=== PATIENT | male | born 1950 | race Caucasian/White ===

== ENCOUNTER 2018-12-06 00:47 | Inpatient (IN) ==
[2018-12-06] MEDS ORDERED: QUETIAPINE FUMARATE 100 MG TABLET PO STA (00:53)
[2018-12-06] MEDS ORDERED: HALOPERIDOL 10 MG TABLET PO STA (00:53)
[2018-12-06] MEDS ORDERED: LORazepam 1 MG TAB SL STA (00:53)
[2018-12-06] MEDS ORDERED: ATENOLOL 50 MG TABLET PO ONE (00:53)
[2018-12-06 01:28] LABS: Basophils # (auto) 0.01 K/uL (0-0.2); Basophils % (auto) 0.1 %; Eosinophils # (auto) 0.04 K/uL (0-0.5); Eosinophils % (auto) 0.4 %; Hematocrit (blood only) 43.5 % (42-52); Hemoglobin 16.3 g/dL (14.0-18.0); Immature Granulocytes # (auto) 0.02 K/uL (0.00-0.02); Immature Granulocytes % (auto) 0.2 %; Lymphocytes # (auto) 2.19 K/uL (1.2-3.4); Lymphocytes % (auto) 21.3 %; Mean Corpuscular Hgb Conc 37.5 g/dL (32-36); Mean Corpuscular Volume 86.8 fL (80-100); Mean Platelet Volume 10.1 fL (7.4-10.4); Monocytes # (auto) 1.11 K/uL (0.11-0.59); Monocytes % (auto) 10.8 %; Neutrophils # (auto) 6.91 K/uL (1.4-6.5); Neutrophils % (auto) 67.2 %; Platelet Count 230 K/uL (130-400); RDW Coefficient of Variation 12.3 % (11.5-14.5); RDW Standard Deviation 39.2 fL (36.4-46.3); Red Blood Count 5.01 M/uL (4.7-6.1); White Blood Count 10.28 K/uL (4.8-10.8)
[2018-12-06 01:46] LABS: Albumin Level 3.8 gm/dl (3.4-5.0); BUN Creatinine Ratio 15.3 (10-20); Calcium 8.4 mg/dl (8.5-10.1); Creatinine Clr Calc Pharmacy 89.4 ml/min; Est GFR (African American) 112.5; Est GFR (Non-African American) 97.1; Potassium 2.9 mmol/L (3.5-5.1)
[2018-12-06] MEDS ORDERED: ONDANSETRON 4 MG OD TAB PO STA (01:46)
[2018-12-06] MEDS ORDERED: POTASSIUM CHLORIDE 20 MEQ TABCR PO STA (01:47)
[2018-12-06] MEDS ORDERED: METOCLOPRAMIDE HCL 10 MG TABLET PO STA (01:47)
[2018-12-06 01:57] LABS: Albumin Globulin Ratio 1.1 (0.9-2); Bilirubin,Total 0.7 mg/dl (0.2-1); Globulin 3.6 gm/dl (2.5-4.0); Total Protein 7.4 gm/dl (6.4-8.2)
[2018-12-06 02:06] LABS: Acetaminophen < 2 ug/ml (10-30); Salicylate 4.1 mg/dl (2.8-20)
[2018-12-06] MEDS ORDERED: SODIUM CHLORIDE 0.9% 1000ML 1,000 ML IV ONE ×2 (02:17→02:27)
[2018-12-06 02:26] LABS: Appearance Urine Clear (Clear); Bacteria Urine Automated Negative (Negative); Bilirubin Urine Negative (Negative); Blood Urine Negative (Negative); Cast Urine Automated 0 /lpf (0-5); Color Urine Yellow; Epithelial Cell Urine Auto 0-5 /lpf (0-5); Glucose Urine UA Negative (Negative); Ketones Urine 1+ (Negative); Leukocyte Esterase Urine Negative (Negative); Nitrite Urine Negative (Negative); Specific Gravity Urine 1.014 (1.000-1.030); Urobilinogen Urine Negative (Negative); WBC Urine Automated 0 /hpf (0-5); pH Urine 7.5 (4.5-7.5)
[2018-12-06] MEDS ORDERED: MAGNESIUM SULFATE / D5W 1 GM/100 ML BAG IV ONE (02:27)
[2018-12-06 02:33] LABS: Protein Urine Negative (Negative)
[2018-12-06 02:34] LABS: Magnesium 1.8 mg/dl (1.8-2.4)
[2018-12-06] MEDS: POTASSIUM CHLORIDE / WTR 10 MEQ/100 ML PLCT IV SCH ×2 (02:41→03:57)
[2018-12-06 02:51] LABS: Amphetamines+Metham, Urine Neg (Neg); Barbiturates, Urine Neg (Neg); Benzodiazepine, Urine Neg (Neg); Cocaine, Urine Neg (Neg); MDMA (Ecstacy), Urine Neg (Neg); Methadone, Urine Neg (Neg); Opiate, Urine Neg (Neg); Phencyclidine, Urine Neg (Neg)
[2018-12-06] MEDS ORDERED: POTASSIUM CHLORIDE 20 MEQ/15 ML UDC PO STA (04:41)
[2018-12-06 05:48] LABS: BUN Creatinine Ratio 12.8 (10-20); Calcium 7.7 mg/dl (8.5-10.1); Creatinine Clr Calc Pharmacy 83.5 ml/min; Est GFR (African American) 109.4; Est GFR (Non-African American) 94.4; Potassium 3.6 mmol/L (3.5-5.1)
[2018-12-06] MEDS ORDERED: ACETAMINOPHEN 325 MG TAB PO PRN (06:07)
[2018-12-06] MEDS ORDERED: ONDANSETRON INJ 2 MG/ML 2 ML VIAL IV PRN (06:07)
[2018-12-06] MEDS ORDERED: NITROGLYCERIN SL 0.4 MG/TAB TAB SL PRN (06:07)
[2018-12-06] MEDS ORDERED: ALBUTEROL 0.083% NEBU SOLN 3 ML VIAL INH PRN (06:07)
[2018-12-06] MEDS: D5W AND NSS 1,000 ML IV SCH ×3 (06:36→22:43)
--- NOTE | 2018-12-06 06:36 | XRay Report ---
XR chest 1V portable HISTORY: 67 years-old Male Pt AMS acutely altered mental status COMPARISON: Chest and rib radiographs 10/31/2015 TECHNIQUE: Portable AP view of the chest FINDINGS: Cardiomediastinal and hilar silhouettes are within normal limits. The patient is slightly rotated. No pneumothorax, pleural effusion, focal airspace consolidation or overt pulmonary edema. Degenerative changes of the shoulders and spine. IMPRESSION: No acute process. The above report was generated using voice recognition software. It may contain grammatical, syntax o r spelling errors. Electronically signed by: Yandel Amaya M.D. 12/06/2018 6:35 AM
--- NOTE | 2018-12-06 07:00 | Emergency Department Note ---
Entered by Cyrus Pennington acting as a scribe for History of Present Illness General Chief complaint: Mental Health Evaluation Stated complaint: mental health Time Seen by Provider: 12/06/18 00:53 Source: patient and EMS History of Present Illness Onset (ago): day(s) (today) Location: head Pain Consistency: + other (an episode) Quality: + other (suicidal statements) Associated symptoms: + other (Negative for suicidal and homicidal ideations. ) The patient is a 68 year old male who presents to the emergency department with complaints of an episode of suicidal statements occurring today. Per EMS, the patients called 911 today because the patient stated that he would some way or another today. The patient states that his would like him committed. He notes that someone has been telepathically putting thoughts into his brain. He reports that he believes that someone is going to harm him and his . He denies any suicidal and homicidal ideations. The patient states that he has a history of anxiety and paranoid schizophrenia. The patient denies any alcohol use today. Home Medications Home Medications Medication Instructions Recorded Confirmed Type albuterol sulfate 2.5 mg INHALATION Q4 PRN 12/06/18 12/06/18 History carvedilol 12.5 mg PO BID 12/06/18 12/06/18 History hydralazine 50 mg PO BID 12/06/18 12/06/18 History lisinopril 40 mg PO DAILY 12/06/18 12/06/18 History loxapine succinate 10 mg PO QAM 12/06/18 12/06/18 History loxapine succinate 20 mg PO QPM 12/06/18 12/06/18 History metformin 500 mg PO HS 12/06/18 12/06/18 History quetiapine 100 mg PO BID 12/06/18 12/06/18 History triamterene-hydrochlorothiazid 1 cap PO DAILY 12/06/18 12/06/18 History Allergies Allergy/AdvReac Type Severity Reaction Status Date / Time Sulfa (Sulfonamide Allergy Intermediate SWELLING, Verified 12/06/18 01:30 Antibiotics) REDNESS Past Med/Surg History Family History Other No significant family history Social History Preferred Language: Cambodian Communication Ability: Effective Supervisor Claims Required: No Beliefs That Will Affect Care: None marital status: Life Partner Current Living Situation: Spouse Other Information That Helps Us Care for You: No Feels Safe at Home: Yes Safety Concerns: Feels Safe At This Time Smoking Status: Current every day smoker Tobacco Type: cigarettes ; Do You Dip or Chew Tobacco: No ; Hx Alcohol Use: Yes Alcohol type: beer Hx Substance Use: Yes substance use type: marijuana Review of Systems See HPI for pertinent positives & negatives. and A total of 10 systems reviewed and were otherwise negative Physical Exam Vital Signs Vital Signs - 24 hr 12/06/18 01:00 12/06/18 02:27 12/06/18 02:43 Temperature 36.6 C Temperature Source Oral Sepsis Action Taken by Nursing No Action Required Pulse Rate 78 75 72 Pulse Rate from SpO2 Sensor 76 72 Respiratory Rate 26 H 16 27 H Respiratory Depth Shallow Blood Pressure 185/123 H 164/114 H Blood Pressure Mean 143 130 Pulse Oximetry 96 98 96 Oxygen Delivery Method Room Air 12/06/18 03:10 12/06/18 03:13 12/06/18 03:30 Temperature Temperature Source Sepsis Action Taken by Nursing Pulse Rate 77 73 71 Pulse Rate from SpO2 Sensor 73 72 Respiratory Rate 31 H 18 24 Respiratory Depth Blood Pressure 180/103 H 139/89 Blood Pressure Mean 128 105 Pulse Oximetry 94 90 Oxygen Delivery Method 12/06/18 04:00 12/06/18 04:05 12/06/18 04:30 Temperature Temperature Source Sepsis Action Taken by Nursing Pulse Rate 74 71 77 Pulse Rate from SpO2 Sensor 71 Respiratory Rate 15 23 27 H Respiratory Depth Blood Pressure 175/107 H 182/99 H Blood Pressure Mean 129 126 Pulse Oximetry 95 Oxygen Delivery Method GENERAL: Awake, alert, well-appearing, in no acute distress HENT: Normocephalic, atraumatic. Oropharynx unremarkable. EYES: Normal conjunctiva. Sclera non-icteric. NECK: Supple. No nuchal rigidity. FROM. No JVD. RESPIRATORY: Clear to auscultation. CARDIAC: Regular rate, normal rhythm. Extremities warm and well perfused. Pulses equal. ABDOMEN: Soft, non-distended. No tenderness to palpation. No rebound or guarding. No masses. RECTAL: Deferred. MUSCULOSKELETAL: Chest examination reveals no tenderness. The back is symmetrical on inspection without obvious abnormality. There is no CVA tenderness to palpation. No joint edema. LOWER EXTREMITIES: Calves are equal size bilaterally and non-tender. No edema. No discoloration. NEURO: Normal sensorium. No sensory or motor deficits noted. SKIN: No rash or jaundice noted. PSYCH: Flight of ideas, tangential thought process, paranoid in thinking, does not trust doctor, police, ambulance that brought him in, and scribe. Course 0048: The patient was evaluated in room B12. A complete history and physical exam was performed. Administered Medications Dextrose/Sodium Chloride (D5w And Nss) 1,000 mls @ 100 mls/hr IV .Q10H NATALYA Stop: 01/05/19 06:14 Last Admin: 12/06/18 06:36 Dose: 100 mls/hr Documented by: [id number] Discontinued Medications Atenolol (Tenormin) 100 mg PO NOW ONE Stop: 12/06/18 00:54 Last Admin: 12/06/18 01:09 Dose: 100 mg Documented by: [id number] Haloperidol (Haldol) 10 mg PO NOW STA Stop: 12/06/18 00:54 Last Admin: 12/06/18 01:12 Dose: 10 mg Documented by: [id number] Hydralazine HCl (Apresoline) 25 mg PO NOW STA Stop: 12/06/18 00:57 Last Admin: 12/06/18 01:08 Dose: 25 mg Documented by: [id number] Sodium Chloride (Nss 1000ml) 1,000 mls @ 999 mls/hr IV .Q1H1M ONE Stop: 12/06/18 03:17 Last Infusion: 12/06/18 05:12 Dose: 0 mls/hr Documented by: [id number] Admin: 12/06/18 03:56 Dose: 999 mls/hr Documented by: [id number] Magnesium Sulfate/Dextrose (Magnesium Sulfate / D5w) 1 gm in 100 mls @ 100 mls/hr IV ONE ONE Stop: 12/06/18 03:26 Last Infusion: 12/06/18 03:57 Dose: 0 mls/hr Documented by: [id number] Admin: 12/06/18 02:41 Dose: 100 mls/hr Documented by: [id number] Potassium Chloride (K Mendel / Wtr) 10 meq in 100 mls @ 100 mls/hr IV Q1H NATALYA Stop: 12/06/18 04:29 Last Infusion: 12/06/18 05:12 Dose: 0 mls/hr Documented by: [id number] Admin: 12/06/18 03:57 Dose: 100 mls/hr Documented by: [id number] Infusion: 12/06/18 03:41 Dose: 100 mls/hr Documented by: [id number] Admin: 12/06/18 02:41 Dose: 100 mls/hr Documented by: [id number] Sodium Chloride (Nss 1000ml) 1,000 mls @ 999 mls/hr IV .Q1H1M ONE Stop: 12/06/18 03:27 Last Infusion: 12/06/18 03:57 Dose: 0 mls/hr Documented by: [id number] Admin: 12/06/18 02:42 Dose: 999 mls/hr Documented by: [id number] Lorazepam (Ativan) 2 mg SL NOW STA Stop: 12/06/18 00:54 Last Admin: 12/06/18 01:09 Dose: 2 mg Documented by: [id number] Metoclopramide HCl (Reglan) 10 mg PO NOW STA Stop: 12/06/18 01:48 Last Admin: 12/06/18 02:29 Dose: Not Given Documented by: [id number] Ondansetron HCl (Zofran Odt) 4 mg PO NOW STA Stop: 12/06/18 01:47 Last Admin: 12/06/18 02:29 Dose: Not Given Documented by: [id number] Potassium Chloride (Klor-Con M20) 40 meq PO NOW STA Stop: 12/06/18 01:48 Last Admin: 12/06/18 02:29 Dose: Not Given Documented by: [id number] Potassium Chloride (Remedios Ciel Elix) 40 meq PO NOW STA Stop: 12/06/18 04:42 Last Admin: 12/06/18 04:47 Dose: 40 meq Documented by: [id number] Quetiapine Fumarate (Seroquel) 100 mg PO NOW STA Stop: 12/06/18 00:54 Last Admin: 12/06/18 01:11 Dose: 100 mg Documented by: [id number] Medical Decision Making Differential Diagnosis Differential diagnosis: Etiologies such as psychiatric disorder, infection, hypoglycemia, electrolyte abnormalities, cardiac sources, intracerebral event, toxicological process, neurologic disorder, as well as others were entertained. Medical Records Attestation: I reviewed the patient's medical records. Home Medications Current Medication List: was personally reviewed by me Laboratory Data Attestation: I reviewed the patient's lab results. Result diagrams: 12/06/18 01:18 12/06/18 05:18 Lab Results 12/06/18 12/06/18 12/06/18 Range/Units 01:18 01:18 01:18 WBC 10.28 (4.8-10.8) K/uL RBC 5.01 (4.7-6.1) M/uL Hgb 16.3 (14.0-18.0) g/dL Hct 43.5 (42-52) % MCV 86.8 (80-100) fL MCH 32.5 (25-34) pg MCHC 37.5 H (32-36) g/dL RDW Std Deviation 39.2 (36.4-46.3) fL RDW Coeff of Jerome 12.3 (11.5-14.5) % Plt Count 230 (130-400) K/uL MPV 10.1 (7.4-10.4) fL Immature Gran % (Auto) 0.2 % Neut % (Auto) 67.2 % Lymph % (Auto) 21.3 % [place] % (Auto) 10.8 % Eos % (Auto) 0.4 % Baso % (Auto) 0.1 % Immature Gran # (Auto) 0.02 (0.00-0.02) K/uL Neut # (Auto) 6.91 H (1.4-6.5) K/uL Lymph # (Auto) 2.19 (1.2-3.4) K/uL [place] # (Auto) 1.11 H (0.11-0.59) K/uL Eos # (Auto) 0.04 (0-0.5) K/uL Baso # (Auto) 0.01 (0-0.2) K/uL Sodium 121 L (136-145) mmol/L Potassium 2.9 L (3.5-5.1) mmol/L Chloride 82 L (98-107) mmol/L Carbon Dioxide 29 (21-32) mmol/L Anion Gap 10.0 (3-11) BUN 11 (7-18) mg/dl Creatinine 0.71 (0.6-1.4) mg/dl Est Cr Clr Drug Dosing 89.4 ml/min Est GFR ( Amer) 112.5 Est GFR (Non-Af Amer) 97.1 BUN/Creatinine Ratio 15.3 (10-20) Glucose 136 H (70-99) mg/dl Calcium 8.4 L (8.5-10.1) mg/dl Magnesium 1.8 (1.8-2.4) mg/dl Total Bilirubin 0.7 (0.2-1) mg/dl AST 18 (15-37) U/L ALT 16 (12-78) U/L Alkaline Phosphatase 49 (45-117) U/L Total Protein 7.4 (6.4-8.2) gm/dl Albumin 3.8 (3.4-5.0) gm/dl Globulin 3.6 (2.5-4.0) gm/dl Albumin/Globulin Ratio 1.1 (0.9-2) TSH 0.570 (0.300-4.500) uIu/ml Urine Color Urine Appearance (Clear) Urine pH (4.5-7.5) Ur Specific Magnolia (1.000-1.030) Urine Protein (Negative) Urine Glucose (UA) (Negative) Urine Ketones (Negative) Urine Blood (Negative) Urine Nitrite (Negative) Urine Bilirubin (Negative) Urine Urobilinogen (Negative) Ur Leukocyte Esterase (Negative) Urine WBC (Auto) (0-5) /hpf Urine RBC (Auto) (0-4) /hpf U Hyaline Cast (Auto) (0-5) /lpf U Epithel Cells (Auto) (0-5) /lpf Urine Bacteria (Auto) (Negative) Salicylates 4.1 (2.8-20) mg/dl Urine Opiates Screen (Neg) Ur Methadone, Qual (Neg) Acetaminophen < 2 L (10-30) ug/ml Urine Barbiturates (Neg) Ur Phencyclidine (PCP) (Neg) U Amphetamin/Meth Scrn (Neg) MDMA (Ecstasy) Screen (Neg) U Benzodiazepines Scrn (Neg) Ur Cocaine Metabolite (Neg) U Marijuana (THC) Screen (Neg) Ethyl Alcohol mg/dL (0-3) mg/dl 12/06/18 12/06/18 12/06/18 Range/Units 01:18 02:16 02:16 WBC (4.8-10.8) K/uL RBC (4.7-6.1) M/uL Hgb (14.0-18.0) g/dL Hct (42-52) % MCV (80-100) fL MCH (25-34) pg MCHC (32-36) g/dL RDW Std Deviation (36.4-46.3) fL RDW Coeff of Jerome (11.5-14.5) % Plt Count (130-400) K/uL MPV (7.4-10.4) fL Immature Gran % (Auto) % Neut % (Auto) % Lymph % (Auto) % [place] % (Auto) % Eos % (Auto) % Baso % (Auto) % Immature Gran # (Auto) (0.00-0.02) K/uL Neut # (Auto) (1.4-6.5) K/uL Lymph # (Auto) (1.2-3.4) K/uL [place] # (Auto) (0.11-0.59) K/uL Eos # (Auto) (0-0.5) K/uL Baso # (Auto) (0-0.2) K/uL Sodium (136-145) mmol/L Potassium (3.5-5.1) mmol/L Chloride (98-107) mmol/L Carbon Dioxide (21-32) mmol/L Anion Gap (3-11) BUN (7-18) mg/dl Creatinine (0.6-1.4) mg/dl Est Cr Clr Drug Dosing ml/min Est GFR ( Amer) Est GFR (Non-Af Amer) BUN/Creatinine Ratio (10-20) Glucose (70-99) mg/dl Calcium (8.5-10.1) mg/dl Magnesium (1.8-2.4) mg/dl Total Bilirubin (0.2-1) mg/dl AST (15-37) U/L ALT (12-78) U/L Alkaline Phosphatase (45-117) U/L Total Protein (6.4-8.2) gm/dl Albumin (3.4-5.0) gm/dl Globulin (2.5-4.0) gm/dl Albumin/Globulin Ratio (0.9-2) TSH (0.300-4.500) uIu/ml Urine Color Yellow Urine Appearance Clear (Clear) Urine pH 7.5 (4.5-7.5) Ur Specific Magnolia 1.014 (1.000-1.030) Urine Protein Negative (Negative) Urine Glucose (UA) Negative (Negative) Urine Ketones 1+ H (Negative) Urine Blood Negative (Negative) Urine Nitrite Negative (Negative) Urine Bilirubin Negative (Negative) Urine Urobilinogen Negative (Negative) Ur Leukocyte Esterase Negative (Negative) Urine WBC (Auto) 0 (0-5) /hpf Urine RBC (Auto) 5-10 H (0-4) /hpf U Hyaline Cast (Auto) 0 (0-5) /lpf U Epithel Cells (Auto) 0-5 (0-5) /lpf Urine Bacteria (Auto) Negative (Negative) Salicylates (2.8-20) mg/dl Urine Opiates Screen Neg (Neg) Ur Methadone, Qual Neg (Neg) Acetaminophen (10-30) ug/ml Urine Barbiturates Neg (Neg) Ur Phencyclidine (PCP) Neg (Neg) U Amphetamin/Meth Scrn Neg (Neg) MDMA (Ecstasy) Screen Neg (Neg) U Benzodiazepines Scrn Neg (Neg) Ur Cocaine Metabolite Neg (Neg) U Marijuana (THC) Screen Pos H (Neg) Ethyl Alcohol mg/dL < 3.0 (0-3) mg/dl Imaging Data Attestation: I personally reviewed and interpreted this imaging study as follows: My Impression: One view of the chest was determined by me shows no evidence of pneumonia congestion or pneumothorax Radiologist's Impression: CT the head: Motion artifact. No evidence of acute intracranial abnormality or skull fracture. Volume loss and small vessel disease. 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 Blood Pressure Blood Pressure Findings: Elevated blood pressure Blood Pressure Disposition: further management by hospitalist ALEX Narrative This is a 67-year-old male who was brought to the emergency department by state police as well as EMS over concerns that the patient had begun threatening his . He has been watching her and has access to firearms. The patient arrives here under 302 warrant. Upon arrival to the emergency department the patient appears acutely paranoid and is suspicious of myself as well as nurses and telehealth case manager. Because of this the patient was given 10 mg of Haldol as well as 2 mg of Ativan. He was given his blood pressure medications for the evening. Patient's sodium levels found to be low and his potassium level was also low. This was repleted here in the emergency department. He was given a normal saline bolus. Because of all these findings I did discuss the case with the hospitalist service as well as telehealth case manager and psychiatric telehealth case manager. It was felt that the patient will be better served in the hospitalist with the psychiatric consult. Impression & Plan Altered mental status, Hypertension, Hyponatremia, Acute hypokalemia Discharge Plan Visit Data *Final* Discharge Date/Time: 12/06/18 05:56 Chief Complaint: Mental Health Evaluation Stated Complaint: mental health ED Provider: Michael Garcia Discharge Problem: Altered mental status, Hypertension, Hyponatremia, Acute hypokalemia Patient Disposition: Admitted As Inpatient Discharge Instructions Interventions: ED Discharge Assessment Last Done: 12/06/18 05:56 Discharge Problem: Altered mental status Qualifiers: Altered mental status type: unspecified Qualified Code(s): R41.82 - Altered mental status, unspecified Hypertension Qualifiers: Hypertension type: unspecified Qualified Code(s): I10 - Essential (primary) hypertension The scribe's documentation has been prepared under my direction and personally reviewed by me in its entirety. I confirm that the note above accurately reflects all work, treatment, procedures, and medical decision making performed by me.
[2018-12-06 07:04] LABS: Prothrombin Time 10.2 Seconds (9.0-12.0)
--- NOTE | 2018-12-06 07:11 | CT Scan Report ---
CT OF THE HEAD WITHOUT CONTRAST CLINICAL HISTORY: Altered mental status. COMPARISON STUDY: No previous studies for comparison. CT DOSE: 921.40 mGy.cm TECHNIQUE: Helical axial images of the head were obtained without IV contrast. Automated exposure con trol was utilized for the study. A dose lowering technique was utilized adhering to the principles o f ALARA. FINDINGS: This exam is mildly compromised by motion artifact. No acute intracranial hemorrhage, midli ne shift or mass effect is present. Ventricular system is normal. The basilar cisterns are patent. 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 White matter hypodensity suggests small v essel disease. There are no findings to suggest acute dural sinus thrombosis or acute territorial inf arct. There is trace fluid within left mastoid air cells. There are no significant calvarial abnormal ities. There is moderate intracranial vascular calcification. IMPRESSION: 1. No acute intracranial findings. 2. Exam mildly compromised by motion artifact. 3. 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 Electronically signed by: Franky Meier M.D. 12/06/2018 7:10 AM
[2018-12-06] MEDS ORDERED: HydrALAZINE HCL 20 MG/ML VIAL IV STA (07:39)
[2018-12-06] MEDS ORDERED: HydrALAZINE HCL 20 MG/ML VIAL IV PRN (07:44)
[2018-12-06] MEDS ORDERED: GLUCAGON FOR INJ 1 MG VIAL IM PRN (08:00)
[2018-12-06] MEDS ORDERED: GLUCOSE 10 TABS/TUBE PO PRN (08:00)
[2018-12-06] MEDS ORDERED: DEXTROSE 50% 50 ML SYRINGE IV PRN (08:00)
[2018-12-06] MEDS ORDERED: GLUCOSE 40% GEL 15 GM TUBE PO PRN (08:00)
[2018-12-06] MEDS ORDERED: CARBOHYDRATES FOR HYPOGLYCEMIA PO PRN (08:00)
[2018-12-06] MEDS: INSULIN ASPART 100 UNITS/ML 3 ML PEN SC SCH ×4 (08:03→21:43)
[2018-12-06] MEDS: NICOTINE 21 MG/24 HR TDSY TD SCH (08:05)
[2018-12-06] MEDS: HydrALAZINE TAB 50 MG TAB PO SCH ×2 (08:08→21:46)
[2018-12-06] MEDS: HEPARIN SOD 5,000 UNIT/0.5 ML VIAL SQ SCH ×3 (08:08→21:44)
[2018-12-06] MEDS: LISINOPRIL 40 MG TAB PO SCH (08:09)
[2018-12-06] MEDS: CARVEDILOL 25 MG TAB PO SCH ×2 (08:09→21:46)
[2018-12-06] MEDS: QUETIAPINE FUMARATE 100 MG TABLET PO SCH ×2 (08:09→21:46)
[2018-12-06 08:12] LABS: BUN Creatinine Ratio 12.5 (10-20); Calcium 8.4 mg/dl (8.5-10.1); Creatinine Clr Calc Pharmacy 81.4 ml/min; Est GFR (African American) 108.3; Est GFR (Non-African American) 93.4; Potassium 3.5 mmol/L (3.5-5.1)
--- NOTE | 2018-12-06 08:33 | History and Physical Report ---
DATE OF ADMISSION: 12/06/2018 CHIEF COMPLAINT: Paranoid schizophrenia, hyponatremia. HISTORY OF PRESENT ILLNESS: This is a 67-year-old male with past medical history significant for paranoid schizophrenia, hypertension, tobacco abuse, hyperlipidemia, psoriasis, type 2 diabetes, presents with paranoid schizophrenia flare. The patient lives with his ,there is question of him collecting guns and he was threatening his and he also had some grandiose plans and he was also telling that he was going to have surgery and is going to . EMS was called and the patient was brought in here and the patient was somewhat agitated and he was given p.o. Haldol and sublingual Ativan and Reglan, currently somewhat sedated, but able to answer some questions. The patient denies any headache. Denies any chest pain. Denies shortness of breath, has cough. He says he smokes 1 pack of cigarettes daily. He says he ambulates okay. Denies any shortness of breath. Denies nausea, denies abdominal pain. He is going to bathroom fine. He says he ambulates okay. He does not know why he was brought to the hospital, can tell his name, , and knows that he is in the hospital and can tell the month and year. Hemodynamics are stable, could not get much history from him as the patient is currently sedated. ALLERGIES: SULFA ANTIBIOTICS. PAST MEDICAL HISTORY: As mentioned above. PAST SURGICAL HISTORY: Colonoscopy, wisdom tooth removed. MEDICATIONS: The patient is on Maxzide 37.5/25 mg p.o. daily, hydralazine 50 mg p.o. b.i.d., lisinopril 40 mg p.o. daily, metformin 500 mg p.o. at bedtime, Seroquel 100 mg p.o. b.i.d., Coreg 12.5 mg p.o. b.i.d., loxapine 10 mg in the morning and 20 mg in the evening, albuterol inhalation q. 4 hours p.r.n. FAMILY HISTORY: Significant for: Aunt has diabetes. Mother has diabetes. Uncle and brother have diabetes. SOCIAL HISTORY: , lives with his . Smokes an average of 2 packs a day for 48 years. Alcohol rare. Drugs, marijuana. REVIEW OF SYMPTOMS: As per HPI. Rest of review of systems could not obtain at this time. PHYSICAL EXAMINATION: GENERAL: The patient is somewhat drowsy, but alert and oriented. VITAL SIGNS: Temperature 36.6, pulse 71, respiratory rate 27, blood pressure 175/107, oxygen 94% room air. NECK: No JVD, no neck masses, no carotid bruits. CARDIOVASCULAR: S1, S2 heard, regular rate and rhythm, no murmur, no gallop. RESPIRATORY SYSTEM: Normal AP diameter. No accessory muscle use. No wheezing, no crackles. ABDOMEN: Soft, bowel sounds present, nontender. No distention. CENTRAL NERVOUS SYSTEM: Drowsy, but arousable, oriented x3. MUSCULOSKELETAL: Moves extremities, ambulatory in the ER room. EXTREMITIES: No edema, no erythema. LABORATORY DATA: WBC 10.2, hemoglobin 16.3, hematocrit 43.5, platelets 230. Sodium 121, potassium 2.9, chloride 82, bicarbonate 29, BUN 11, creatinine 0.7, serum glucose 136, calcium 8.4, magnesium 1.8, total bilirubin 0.7, AST 18, ALT 16, alkaline phosphatase 49. TSH 0.5. Urinalysis, positive for ketones. Toxicology screen positive for marijuana. Chest x-ray: No acute findings seen. CT of the head, official reading pending. ASSESSMENT AND PLAN: This is a 67-year-old male with history of paranoid schizophrenia, was threatening his at home and got somewhat agitated and brought to the hospital. 1. Paranoid schizophrenia flare, somewhat agitated. He is on loxapine and Seroquel at home, received Haldol p.o. and sublingual Ativan, currently drowsy. We will admit to med/surg tele, one-on-one observation. Consult psychiatry for a adjustment of medications. 2. Hyponatremia. Sodium of 121, received 2 liters of fluids in the ER. We will also check urine osmolality, serum osmolality and urine sodium. Check BMP q. 4 hours and consult nephrology for further recommendations. We will hold triamterene/hydrochlorothiazide and follow the labs closely for slow correction of sodium. 4. Hypokalemia. We will replace and follow the labs. 5. Tobacco use disorder. Continue inhalers p.r.n. and nicotine patch. 6. Hypertension. Continue hydralazine, lisinopril and, Coreg. Holding triamterene/hydrochlorothiazide. We will monitor the blood pressure.Iv hydralazine prn. 7. Diabetes. Holding metformin, place insulin sliding scale. 8. Deep venous thrombosis prophylaxis, sequential compression devices for now. 9. Disposition: Close monitor in the med/surg tele. Level 1 full code. PT and OT prior to discharge. Social Service to help with discharge planning. VER[place]
[2018-12-06] MEDS: DESMOPRESSIN ACETATE 2 MCG in SODIUM CHLORIDE 0.9% 50 ML IV SCH ×2 (09:25→17:47)
[2018-12-06] MEDS: AMLODIPINE BESYLATE 5 MG TAB PO SCH (09:25)
[2018-12-06 10:00] LABS: BUN Creatinine Ratio 13.8 (10-20); Calcium 8.1 mg/dl (8.5-10.1); Est GFR (African American) 113.9; Est GFR (Non-African American) 98.2; Potassium 2.9 mmol/L (3.5-5.1)
--- NOTE | 2018-12-06 10:52 | Psychiatric Consultation ---
Date of Consultation December 06, 2018 Impression / Recommendations Impression 67-year-old male admitted medically on 12/06/2018 on a 302 warrant with petitioning statement completed by his . had reportedly called 911 due to concerns for increasing paranoid and delusional behavior. Patient has a history of schizophrenia and has reportedly not been doing well for the past 2 months. Patient received haloperidol 10 mg and lorazepam 2 mg while in the emergency department due to being "combative and noncompliant." Due to his level of sedation, the patient is unable to participate in a full psychiatric evaluation at this time. Limited information obtainable from patient suggests that he is aware that he has not been in a proper mindset for some time. After conversation between psychiatric nurse liaison and the patient's , it is determined that the will be able to bring in nonformulary loxapine in order for patient to continue his home medication regimen. Until level of sedation improves, would not recommend any immediate changes to patient's home medication regimen. Would suggest continuing loxapine at 10 mg every morning and 20 mg nightly. Continue quetiapine 100 mg twice daily. No changes recommended at this time until additional information can acquired. It is suggested, however, the patient may have been on doses of quetiapine as high as 500 mg daily and doses of loxapine as high as 100 mg daily. Due to patient's 302 warrant, he should not be permitted to leave the hospital AMA until a full psychiatric evaluation is completed and medication and discharge recommendations are made. We will follow up when patient is better able to participate in a meaningful interview. Appreciate the opportunity to participate in the care of this patient, please reach out to our service with any concerns during his medical admission. Dr. Ulisses Martínez was directly involved in review and discussion of the patient's case and participated in medical decision making regarding treatment recommendations. Risk Factors Assessment Do You Have Access To A Gun?: Yes (reported by Can Carla estevez) CPT Code Initial Consultation: 50800 Psych History Identifying Data 67-year-old male admitted medically on 12/06/18 on a 302 warrant due to 's concerns for delusions and paranoia. Patient reportedly has a history of schizophrenia, paranoid type. He had verbalized suicidal statements to his which led to his subsequent evaluation and medical admission. Patient is currently being treated for hyponatremia and hypokalemia in addition to significantly elevated blood pressure. Patient did receive 10 mg of haloperidol and 2 mg of lorazepam while in the emergency department. Psychiatric consultation was requested to evaluate patient due to history of schizophrenia and having been brought in on a 302 warrant. Information is predominantly gathered from hospital documentation, as patient remains sedated and is unable to participate in a meaningful evaluation at this time. Chief Complaint "Yeah, I knew I was getting into the wrong stuff." History of Present Illness Poonam Montenegro is a 67-year-old male admitted medically at room 12/06/2018 after presenting to the emergency department on a 302 warrant for mental health evaluation. Per ED documentation, the patient's had called 911 after the patient had reported he "would some way or another today." The patient had verbalized comments suggesting delusional thought process. He did deny homicidal and suicidal ideation, despite making these comments. Patient was admitted medically due to hyponatremia and hypokalemia and he had episodes of rather significantly elevated blood pressure. Psychiatric consultation is requested to evaluate patient for paranoia and delusions, with a long history of schizophrenia as a diagnosis. Patient is reportedly taking loxapine 10 mg every morning and 20 mg nightly as well as 100 mg of quetiapine twice daily. In the ED, patient was given 10 mg of haloperidol and 2 mg of lorazepam as he was reportedly acutely paranoid and suspicious of healthcare providers. He was reportedly combative and uncooperative. 302 petitioning statement was completed by the patient's (Aurelia Montenegro) which reads: "said he will tonight. Called me a Satan worshipper. Watched me sleep and shower. Told me S.P (?) was my life line. Won't eat. Drinks coffee and smokes cigs all day. Won't put out the trash because he is afraid it will be stolen. I got DVDs in the mail today and he thought it was a bomb. Would not let me accept phone call from library because didn't know who they were." It was reported by can help that the patient does have access to firearms in the home. See nursing note from ED psych case management associate for accounts of statements made prior to admission. Psychiatric nurse liaison was able to gather history from the patient's , who is planning to come visit him this afternoon. As loxapine is nonformulary in our pharmacy, she is willing to bring in his prescription to ensure he continues his home medications. See psychiatric nurse liaison note for full details. In summary, reports the patient has not been sleeping well for over a month, and has been demonstrating paranoia and delusions for the past 2 months. She states he has been harassing drivers passing on the road and has been following her around their home. She states that he has been compliant with his medications, which are currently prescribed by his PCP. Patient had previously been seen by Dr. Alvarez, but followed up with his PCP after Dr. Alvarez's detention about 5-6 years ago. Attempts were made to see patient on multiple occasions today; however, as he was only recently admitted and had received haloperidol and lorazepam in the emergency department, he was largely unable to cooperate with a productive interview. During first encounter, patient was unable to remain awake for a significant period of time and was unable to answer questions. A second visit later in the afternoon showed the patient was somewhat more responsive; however, he did frequently nod off to sleep and ultimately stated he was too tired to participate in evaluation at this time. Patient remains with a one-to-one sitter for the time being. Unable at this time to gather additional psychiatric history from the patient himself. Past Psychiatric History Previous Psych History: Patient receives medications from his PCP; previously followed with Dr. Alvarez until the doctor's detention about 5-6 years ago. Pt denies having a case management associate. Pt has been admitted to [facility] in 1997, 2001, 2004, and 2008. He also had one hospitalization at [facility] in 1977. Pt has a long history of schizophrenia, paranoid-type. Do You Have Access To A Gun?: Yes (reported by Can Carla estevez) Past Medication Trials: Per previous hospital documentation: 1. Risperdal 2. Loxapine 3. Seroquel Allergies Allergy/AdvReac Type Severity Reaction Status Date / Time Sulfa (Sulfonamide Allergy Intermediate SWELLING, Verified 12/06/18 01:30 Antibiotics) REDNESS Home Medications Home Medications Medication Instructions Recorded Confirmed Type albuterol sulfate 2.5 mg INHALATION Q4 PRN 12/06/18 12/06/18 History carvedilol 12.5 mg PO BID 12/06/18 12/06/18 History hydralazine 50 mg PO BID 12/06/18 12/06/18 History lisinopril 40 mg PO DAILY 12/06/18 12/06/18 History loxapine succinate 10 mg PO QAM 12/06/18 12/06/18 History loxapine succinate 20 mg PO QPM 12/06/18 12/06/18 History metformin 500 mg PO HS 12/06/18 12/06/18 History quetiapine 100 mg PO BID 12/06/18 12/06/18 History triamterene-hydrochlorothiazid 1 cap PO DAILY 12/06/18 12/06/18 History Family History Documentation suggests a family history of alcoholism Substance Abuse History Unable to have productive conversation with patient to assess substance abuse history. Personal History Living Arrangements: Home (With ) Patient History Medical History Hypertension (Chronic) Anxiety Paranoid schizophrenia Family History Other No significant family history Social History Preferred Language: Pry[place]in[place] Communication Ability: Effective Tobacco Drummer Required: No Beliefs That Will Affect Care: None marital status: Life Partner Current Living Situation: Spouse Other Information That Helps Us Care for You: No Feels Safe at Home: Yes Safety Concerns: Feels Safe At This Time Smoking Status: Current every day smoker Tobacco Type: cigarettes ; Do You Dip or Chew Tobacco: No ; Hx Alcohol Use: Yes Alcohol type: beer Hx Substance Use: Yes substance use type: marijuana Physical Exam Psychiatric: Orientation: alert (Only briefly, arousable to verbal stimuli but quickly falls back asleep) and oriented to person Apperance: appropriately dressed (In hospital gown), + disheveled and appeared stated age Eye Contact: + poor eye contact (Briefly opens eyes, but falling asleep for majority of enco unter) Motor Behavior: no abnormal motor movements (Observed while laying in bed) Speech: normal rate/rhythm/volume of speech Affect: + blunted affect (Appearing fatigued) Unable to adequately assess due to patient's level of sedation Unable to adequately assess due to level of patient's sedation Patient unable to comment on suicidality Patient unable to comment on presence of auditory or visual hallucinations Cognition: + attention not intact Estimated Intelligence: consistent with education level Insight: + impaired insight Judgement: + impaired judgement Vital Signs (Past 24 Hours): Last Vital Signs Temp 36.9 C 12/06/18 07:09 Pulse 64 12/06/18 09:14 Resp 19 12/06/18 07:09 BP 162/88 H 12/06/18 08:33 Pulse Ox 96 12/06/18 07:09 Review of Systems On both attempts, patient is sedated and unable to dissipate and productive interview. Unable to accurately complete review of systems due to patient's condition. Results & Data Medications Administered Amlodipine Besylate (Norvasc) 10 mg PO QAM NATALYA Stop: 01/05/19 08:59 Last Admin: 12/06/18 09:25 Dose: 10 mg Documented by: [id number] Carvedilol (Coreg) 12.5 mg PO BID NATALYA Stop: 01/05/19 08:59 Last Admin: 12/06/18 08:09 Dose: 12.5 mg Documented by: [id number] Heparin Sodium (Porcine) (Heparin Sodium (Porcine)) 5,000 units SQ Q12 NATALYA Stop: 01/05/19 08:59 Last Admin: 12/06/18 08:14 Dose: Not Given Documented by: [id number] Hydralazine HCl (Apresoline) 50 mg PO BID NATALYA Stop: 01/05/19 08:59 Last Admin: 12/06/18 08:08 Dose: 50 mg Documented by: [id number] Dextrose/Sodium Chloride (D5w And Nss) 1,000 mls @ 150 mls/hr IV .Q6H40M NATALYA Stop: 01/05/19 06:14 Last Infusion: 12/06/18 08:18 Dose: 150 mls/hr Documented by: [id number] Admin: 12/06/18 06:36 Dose: 100 mls/hr Documented by: [id number] Desmopressin Acetate 2 mcg/ (Sodium Chloride) 50.5 mls @ 100 mls/hr IV Q8H NATALYA Stop: 01/05/19 08:59 Last Infusion: 12/06/18 10:21 Dose: 0 mls/hr Documented by: [id number] Admin: 12/06/18 09:25 Dose: 100 mls/hr Documented by: [id number] Insulin Aspart (Novolog Flexpen) 0 units SC ACHS NATALYA Stop: 01/05/19 07:29 Last Admin: 12/06/18 08:03 Dose: Not Given Documented by: [id number] Cosigned by: [id number] Lisinopril (Zestril) 40 mg PO DAILY NATALYA Stop: 01/05/19 08:59 Last Admin: 12/06/18 08:09 Dose: 40 mg Documented by: [id number] Miscellaneous (Order Awaiting Action) 1 ea N/A QS [facility] Stop: 01/05/19 07:59 Last Admin: 12/06/18 07:58 Dose: Not Given Documented by: [id number] Miscellaneous (Order Awaiting Action) 1 ea N/A QS [facility] Stop: 01/05/19 07:59 Last Admin: 12/06/18 07:59 Dose: Not Given Documented by: [id number] Nicotine (Nicoderm Cq) 21 mg TD QAM [facility] Stop: 01/05/19 08:59 Last Admin: 12/06/18 08:05 Dose: 21 mg Documented by: [id number] Quetiapine Fumarate (Seroquel) 100 mg PO BID [facility] Stop: 01/05/19 08:59 Last Admin: 12/06/18 08:09 Dose: 100 mg Documented by: [id number]
[2018-12-06] MEDS: POTASSIUM CHLORIDE 20 MEQ TABCR PO SCH ×3 (11:36→22:45)
[2018-12-06 13:09] LABS: BUN Creatinine Ratio 16.1 (10-20); Creatinine Clr Calc Pharmacy 89.4 ml/min; Est GFR (African American) 112.5; Est GFR (Non-African American) 97.1; Potassium 3.2 mmol/L (3.5-5.1)
--- NOTE | 2018-12-06 15:38 | Hospitalist Progress Note ---
Date of Service December 06, 2018 Assessment & Plan (1) Hyponatremia: Continue desmopressin and D5 at 150. Nephro consulted. Continue trending sodium every 4. (2) Paranoid schizophrenia: Records reviewed with patient brought in on a petition completed by the patient's . The patient reportedly stated he was going to . He reportedly owns a gun but does not admit to this to me. Per his the patient has been making paranoid statements and harassing neighbors and people driving by their home. He was watching her sleep and shower and told her she was a Satan worshipper. His behavior has been paranoid and he continues to drink coffee and smoke cigarettes all day. He wont put out the trash because he is afraid it will be stolen. He was paranoid that something in the mail was a bomb. Defer management to psychiatry. Patient states he does not see a psychiatrist as outpatient but admits he has paranoid schizophrenia. Continue Seroquel and loxapine per home regimen. (3) Suicidal ideation: Has safe trays ordered because of the nature of the admission. No martha SI or HI but patient was convinced he was going to for some reason so this and 1:1 observation is a precaution. (4) DMII (diabetes mellitus, type 2): ISS ordered without carb coverage. A1C reflects good control with metfromin. Cont current treatment plan. (5) Smoker: Nicotine patch, advised to quit. (6) Hypertension: at goal, cont home medications. (7) DVT prophylaxis: Heparin Full Dispo-uncertain, pending psychiatric evaluation and recommendations. Mariam Felipe DO [facility] Hospitalist Subjective 68-year-old man admitted with suicidal ideations and found to have hyponatremia. Sodium has increased to quickly and dextrose was added with addition of desmopressin per nephrology. Continuing to trend the sodium; patient is currently feeling well and mentating normally. He denies suicidal ideations today and states he feels okay. I asked him if he owns a gun and he told me he declines to answer that question. I asked him if he had any weapons and he said he had a knife. I asked him if he had a weapon on his person or in his bags and he replied no. He otherwise denies any symptoms of chest pain, shortness of breath, fevers, chills, vomiting, diarrhea. Review of Systems Review of Systems: All systems reviewed & are unremarkable except as noted in HPI & below Physical Exam Physical Exam: CONSTITUTIONAL: WNWD, vitals as above, generally well- appearing EYES: normal conjunctivae, no scleral icterus ENT: MMM RESPIRATORY: clear to auscultation bilaterally, no crackles, rales or wheezes, normal respiratory effort CARDIOVASCULAR: regular rate and rhythm, S1 and 2 heard without murmurs, gallops or rubs, no JVD, no peripheral edema GASTROINTESTINAL: soft, nontender, nondistended MUSCULOSKELETAL: strength 5/5 throughout, head is normocephalic and atraumatic SKIN: warm and dry NEUROLOGIC: CN 2-12 grossly intact, normal cognition, normal speech, no gross focal deficits. PSYCHIATRIC: alert cooperative and oriented to person, place and time. Results & Data Vital Signs (Past 12 Hours) Vital Signs Temp Pulse Pulse Resp BP BP BP 12/06/18 15:01 36.3 C L 70 17 124/72 12/06/18 11:16 36.6 C 68 20 113/69 12/06/18 09:14 64 12/06/18 08:33 157/83 H 162/88 H 12/06/18 08:12 164/94 H 177/96 H 12/06/18 07:09 36.9 C 66 19 195/105 H 205/116 H 12/06/18 06:11 36.4 C L 69 20 192/97 H 197/114 H 12/06/18 05:30 70 31 H 158/104 H 12/06/18 05:00 73 26 H 157/99 H 12/06/18 04:30 77 27 H 182/99 H 12/06/18 04:05 71 23 175/107 H 12/06/18 04:00 74 15 Pulse Ox 12/06/18 15:01 96 12/06/18 11:16 96 12/06/18 09:14 12/06/18 08:33 12/06/18 08:12 12/06/18 07:09 96 12/06/18 06:11 98 12/06/18 05:30 12/06/18 05:00 12/06/18 04:30 12/06/18 04:05 95 12/06/18 04:00 Laboratory Results Short CBC 12/06/18 Range/Units 01:18 WBC 10.28 (4.8-10.8) K/uL Hgb 16.3 (14.0-18.0) g/dL Hct 43.5 (42-52) % Plt Count 230 (130-400) K/uL BMP 12/06/18 12/06/18 12/06/18 01:18 05:18 07:43 Sodium 121 L 128 L D 129 L Potassium 2.9 L 3.6 D 3.5 Chloride 82 L 94 L 95 L Carbon Dioxide 29 28 29 BUN 11 10 10 Creatinine 0.71 0.76 0.78 Glucose 136 H 133 H 124 H Calcium 8.4 L 7.7 L 8.4 L 12/06/18 12/06/18 09:30 12:38 Sodium 129 L 130 L Potassium 2.9 L D 3.2 L Chloride 96 L 97 L Carbon Dioxide 27 26 BUN 10 11 Creatinine 0.69 0.71 Glucose 188 H 177 H Calcium 8.1 L 8.0 L Liver Function 12/06/18 Range/Units 01:18 Total Bilirubin 0.7 (0.2-1) mg/dl AST 18 (15-37) U/L ALT 16 (12-78) U/L Alkaline Phosphatase 49 (45-117) U/L Albumin 3.8 (3.4-5.0) gm/dl Urine 12/06/18 Range/Units 02:16 Urine Color Yellow Urine Appearance Clear (Clear) Urine pH 7.5 (4.5-7.5) Ur Specific Chama 1.014 (1.000-1.030) Urine Protein Negative (Negative) Urine Glucose (UA) Negative (Negative) Diagnostic Findings XR chest 1V portable HISTORY: 67 years-old Male Pt AMS acutely altered mental status COMPARISON: Chest and rib radiographs 10/31/2015 TECHNIQUE: Portable AP view of the chest FINDINGS: Cardiomediastinal and hilar silhouettes are within normal limits. The patient is slightly rotated. No pneumothorax, pleural effusion, focal airspace consolidation or overt pulmonary edema. Degenerative changes of the shoulders and spine. IMPRESSION: No acute process. CT OF THE HEAD WITHOUT CONTRAST CLINICAL HISTORY: Altered mental status. COMPARISON STUDY: No previous studies for comparison. CT DOSE: 921.40 mGy.cm TECHNIQUE: Helical axial images of the head were obtained without IV contrast. Automated exposure control was utilized for the study. A dose lowering technique was utilized adhering to the principles of ALARA. FINDINGS: This exam is mildly compromised by motion artifact. No acute intracranial hemorrhage, midline shift or mass effect is present. Ventricular system is normal. The basilar cisterns are patent. 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 White matter hypodensity suggests small vessel disease. There are no findings to suggest acute dural sinus thrombosis or acute territorial infarct. There is trace fluid within left mastoid air cells. There are no significant calvarial abnormalities. There is moderate intracranial vascular calcification. IMPRESSION: 1. No acute intracranial findings. 2. Exam mildly compromised by motion artifact. 3. 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 Medications Administered Current Inpatient Medications Acetaminophen (Tylenol) 650 mg PO Q4H PRN PRN Reason: Pain or Fever Stop: 01/05/19 06:06 Albuterol (Ventolin 0.083% 2.5mg/3ml) 2.5 mg INH Q4 PRN PRN Reason: Shortness Of Breath Or Wheezing Stop: 01/05/19 06:06 Amlodipine Besylate (Norvasc) 10 mg PO QAM [facility] Stop: 01/05/19 08:59 Last Admin: 12/06/18 09:25 Dose: 10 mg Documented by: Carvedilol (Coreg) 12.5 mg PO BID [facility] Stop: 01/05/19 08:59 Last Admin: 12/06/18 08:09 Dose: 12.5 mg Documented by: Dextrose (Dextrose 50%) 25 - 50 ml IV UD PRN; Protocol PRN Reason: Hypoglycemia Protocol Stop: 01/05/19 07:59 Glucagon (Glucagen) 1 mg IM UD PRN; Protocol PRN Reason: Hypoglycemia Protocol Stop: 01/05/19 07:59 Glucose (Glucose 40%) 15 - 30 gm PO UD PRN; Protocol PRN Reason: Hypoglycemia Protocol Stop: 01/05/19 07:59 Glucose (Dex4 Glucose) 4 - 8 tabs PO UD PRN; Protocol PRN Reason: Hypoglycemia Protocol Stop: 01/05/19 07:59 Heparin Sodium (Porcine) (Heparin Sodium (Porcine)) 5,000 units SQ Q12 [facility]AL[facility] Stop: 01/05/19 08:59 Last Admin: 12/06/18 08:14 Dose: Not Given Documented by: Hydralazine HCl (Apresoline) 50 mg PO BID [facility]ALYA Stop: 01/05/19 08:59 Last Admin: 12/06/18 08:08 Dose: 50 mg Documented by: Hydralazine HCl (Hydralazine Hcl) 5 mg IV Q6H PRN PRN Reason: Hypertension Stop: 01/05/19 07:44 Dextrose/Sodium Chloride (D5w And Nss) 1,000 mls @ 150 mls/hr IV .Q6H40M [facility] Stop: 01/05/19 06:14 Last Admin: 12/06/18 15:04 Dose: 150 mls/hr Documented by: Desmopressin Acetate 2 mcg/ (Sodium Chloride) 50.5 mls @ 100 mls/hr IV Q8H [facility] Stop: 01/05/19 08:59 Last Infusion: 12/06/18 10:21 Dose: Infused Documented by: Insulin Aspart (Novolog Flexpen) 0 units SC ACHS [facility] Stop: 01/05/19 07:29 Last Admin: 12/06/18 11:44 Dose: 1 units Documented by: Lisinopril (Zestril) 40 mg PO DAILY [facility] Stop: 01/05/19 08:59 Last Admin: 12/06/18 08:09 Dose: 40 mg Documented by: Miscellaneous (Order Awaiting Action) 1 ea N/A QS [facility] Stop: 01/05/19 07:59 Last Admin: 12/06/18 07:58 Dose: Not Given Documented by: Miscellaneous (Order Awaiting Action) 1 ea N/A QS [facility] Stop: 01/05/19 07:59 Last Admin: 12/06/18 07:59 Dose: Not Given Documented by: Miscellaneous (Remove Nicoderm Patch) 1 ea N/A HS [facility] Stop: 01/05/19 20:59 Miscellaneous (Carbohydrates For Hypoglycemia) 15 - 30 gm PO UD PRN PRN Reason: Hypoglycemia Treatment Stop: 01/05/19 07:59 Nicotine (Nicoderm Cq) 21 mg TD QAM [facility] Stop: 01/05/19 08:59 Last Admin: 12/06/18 08:05 Dose: 21 mg Documented by: Nitroglycerin (Nitrostat) 0.4 mg SL UD PRN PRN Reason: Chest Pain Stop: 01/05/19 06:06 Ondansetron HCl (Zofran) 4 mg IV Q6H PRN PRN Reason: Nausea Stop: 01/05/19 06:06 Potassium Chloride (Klor-Con M20) 40 meq PO Q6H [facility] Stop: 12/06/18 23:01 Last Admin: 12/06/18 11:36 Dose: 40 meq Documented by: Quetiapine Fumarate (Seroquel) 100 mg PO BID [facility] Stop: 01/05/19 08:59 Last Admin: 12/06/18 08:09 Dose: 100 mg Documented by:
[2018-12-06 17:21] LABS: BUN Creatinine Ratio 18.9 (10-20); Calcium 7.6 mg/dl (8.5-10.1); Creatinine Clr Calc Pharmacy 89.4 ml/min; Est GFR (African American) 112.5; Est GFR (Non-African American) 97.1; Potassium 3.5 mmol/L (3.5-5.1)
[2018-12-06] MEDS ORDERED: DEXTROSE 5% 1,000 ML IV SCH (18:30)
[2018-12-06 20:26] LABS: BUN Creatinine Ratio 15.2 (10-20); Calcium 7.7 mg/dl (8.5-10.1); Creatinine Clr Calc Pharmacy 77.4 ml/min; Est GFR (African American) 106.1; Est GFR (Non-African American) 91.5; Potassium 3.5 mmol/L (3.5-5.1)
--- NOTE | 2018-12-06 20:33 | Nephrology Consultation ---
Date of Consultation December 06, 2018 Assessment & Plan (1) Hyponatremia: Patient with hypoosmolar hyponatremia likely due to hypovolemia. His Na overcorrected quickly after restoring volume status. Target rate of correction is 6-8 in 24 hrs. Will start ddavp 2mcg 8hrly. Continue D5 water as needed to keep Na around 128 to 130 till 8/10 AM. (2) Acute hypokalemia: K is better. Avoid further K correction as this will lead to further rise in Na (3) Hypertension: Above target. Add amlodipine 10mg daily. Agree with holding maxizide. History of Present Illness Reason for Consultation: Hyponatremia Requesting Physician: Mark Phillips Attending Physician: Mariam Felipe, DO History of Present Illness This is a 67YoM with PMH of paranid schizophrenia, HTN, DM, psoriasis and anxie ty who was admitted on 12/06/18 with paranoia and found to have hyponatremia with Na 121. He got 2 litres of NS in the ER and NA george to 129. This morning Na is 132 to 131. He reports to be feeling better. he denies Nausea or vomiting. He can not give further history but he is pleasant. His K was also low at 2.9. Urine osmolarity was 218, urine Na 70 and serum osmolarity of 267. Allergies Allergy/AdvReac Type Severity Reaction Status Date / Time Sulfa (Sulfonamide Allergy Intermediate SWELLING, Verified 12/06/18 01:30 Antibiotics) REDNESS Home Medications Home Medications Medication Instructions Recorded Confirmed Type albuterol sulfate 2.5 mg INHALATION Q4 PRN 12/06/18 12/06/18 History carvedilol 12.5 mg PO BID 12/06/18 12/06/18 History hydralazine 50 mg PO BID 12/06/18 12/06/18 History lisinopril 40 mg PO DAILY 12/06/18 12/06/18 History loxapine succinate 10 mg PO QAM 12/06/18 12/06/18 History loxapine succinate 20 mg PO QPM 12/06/18 12/06/18 History metformin 500 mg PO HS 12/06/18 12/06/18 History quetiapine 100 mg PO BID 12/06/18 12/06/18 History triamterene-hydrochlorothiazid 1 cap PO DAILY 12/06/18 12/06/18 History Patient History Medical History Hypertension (Chronic) Anxiety Paranoid schizophrenia Family History Other No significant family history Social History Preferred Language: Sami Communication Ability: Effective Multimedia Educational Specialist Required: No Beliefs That Will Affect Care: None marital status: Life Partner Current Living Situation: Spouse Other Information That Helps Us Care for You: No Feels Safe at Home: Yes Safety Concerns: Feels Safe At This Time Smoking Status: Current every day smoker Tobacco Type: cigarettes ; Do You Dip or Chew Tobacco: No ; Hx Alcohol Use: Yes Alcohol type: beer Hx Substance Use: Yes substance use type: marijuana Review of Systems Review of Systems: All systems reviewed & are unremarkable except as noted in HPI & below Physical Exam Physical Exam: General exam: Appears comfortable, no acute distress HEENT: Pupils are equal and reactive to light Neck: No JVD, neck is supple trachea is midline Respiratory system: Clear breath sounds bilaterally. Gastrointestinal: Abdomen is soft, non distended, non tender, bowel sounds are present CVS: Regular rate and rhythm. No murmurs, rubs or gallops Musculoskeletal: No joint or muscle tenderness Extremities: Non tender, no edema, peripheral pulses are present Neuro: Oriented, no tremors, no focal neurological deficits Skin: No rashes Results & Data Vital Signs (Past 12 Hours) Vital Signs Temp Pulse Pulse Resp BP BP Pulse Ox 12/06/18 19:34 36.5 C 79 18 147/83 H 93 12/06/18 16:00 64 12/06/18 15:01 36.3 C L 70 17 124/72 96 12/06/18 11:16 36.6 C 68 20 113/69 96 12/06/18 09:14 64 12/06/18 08:33 157/83 H 162/88 H Laboratory Results Laboratory Results - last 24 hr 12/06/18 12/06/18 12/06/18 01:18 01:18 01:18 WBC 10.28 RBC 5.01 Hgb 16.3 Hct 43.5 MCV 86.8 MCH 32.5 MCHC 37.5 H RDW Std Deviation 39.2 RDW Coeff of Jerome 12.3 Plt Count 230 MPV 10.1 Immature Gran % (Auto) 0.2 Neut % (Auto) 67.2 Lymph % (Auto) 21.3 [place] % (Auto) 10.8 Eos % (Auto) 0.4 Baso % (Auto) 0.1 Immature Gran # (Auto) 0.02 Neut # (Auto) 6.91 H Lymph # (Auto) 2.19 [place] # (Auto) 1.11 H Eos # (Auto) 0.04 Baso # (Auto) 0.01 PT INR Sodium 121 L Potassium 2.9 L Chloride 82 L Carbon Dioxide 29 Anion Gap 10.0 BUN 11 Creatinine 0.71 Est Cr Clr Drug Dosing 89.4 Est GFR ( Amer) 112.5 Est GFR (Non-Af Amer) 97.1 BUN/Creatinine Ratio 15.3 Glucose 136 H POC Glucose Osmolality Calcium 8.4 L Magnesium 1.8 Total Bilirubin 0.7 AST 18 ALT 16 Alkaline Phosphatase 49 Total Protein 7.4 Albumin 3.8 Globulin 3.6 Albumin/Globulin Ratio 1.1 TSH 0.570 Urine Color Urine Appearance Urine pH Ur Specific Ruby Urine Protein Urine Glucose (UA) Urine Ketones Urine Blood Urine Nitrite Urine Bilirubin Urine Urobilinogen Ur Leukocyte Esterase Urine WBC (Auto) Urine RBC (Auto) U Hyaline Cast (Auto) U Epithel Cells (Auto) Urine Bacteria (Auto) Urine Osmolality Ur Random Sodium Salicylates 4.1 Urine Opiates Screen Ur Methadone, Qual Acetaminophen < 2 L Urine Barbiturates Ur Phencyclidine (PCP) U Amphetamin/Meth Scrn MDMA (Ecstasy) Screen U Benzodiazepines Scrn Ur Cocaine Metabolite U Marijuana (THC) Screen U Marijuana THC Carboxy Ethyl Alcohol mg/dL 12/06/18 12/06/18 12/06/18 01:18 01:18 02:16 WBC RBC Hgb Hct MCV MCH MCHC RDW Std Deviation RDW Coeff of Jerome Plt Count MPV Immature Gran % (Auto) Neut % (Auto) Lymph % (Auto) [place] % (Auto) Eos % (Auto) Baso % (Auto) Immature Gran # (Auto) Neut # (Auto) Lymph # (Auto) [place] # (Auto) Eos # (Auto) Baso # (Auto) PT 10.2 INR 1.0 Sodium Potassium Chloride Carbon Dioxide Anion Gap BUN Creatinine Est Cr Clr Drug Dosing Est GFR ( Amer) Est GFR (Non-Af Amer) BUN/Creatinine Ratio Glucose POC Glucose Osmolality Calcium Magnesium Total Bilirubin AST ALT Alkaline Phosphatase Total Protein Albumin Globulin Albumin/Globulin Ratio TSH Urine Color Urine Appearance Urine pH Ur Specific Ruby Urine Protein Urine Glucose (UA) Urine Ketones Urine Blood Urine Nitrite Urine Bilirubin Urine Urobilinogen Ur Leukocyte Esterase Urine WBC (Auto) Urine RBC (Auto) U Hyaline Cast (Auto) U Epithel Cells (Auto) Urine Bacteria (Auto) Urine Osmolality Ur Random Sodium Salicylates Urine Opiates Screen Neg Ur Methadone, Qual Neg Acetaminophen Urine Barbiturates Neg Ur Phencyclidine (PCP) Neg U Amphetamin/Meth Scrn Neg MDMA (Ecstasy) Screen Neg U Benzodiazepines Scrn Neg Ur Cocaine Metabolite Neg U Marijuana (THC) Screen Pos H U Marijuana THC Carboxy Ethyl Alcohol mg/dL < 3.0 12/06/18 12/06/18 12/06/18 02:16 02:16 05:18 WBC RBC Hgb Hct MCV MCH MCHC RDW Std Deviation RDW Coeff of Jerome Plt Count MPV Immature Gran % (Auto) Neut % (Auto) Lymph % (Auto) [place] % (Auto) Eos % (Auto) Baso % (Auto) Immature Gran # (Auto) Neut # (Auto) Lymph # (Auto) [place] # (Auto) Eos # (Auto) Baso # (Auto) PT INR Sodium 128 L D Potassium 3.6 D Chloride 94 L Carbon Dioxide 28 Anion Gap 6.0 BUN 10 Creatinine 0.76 Est Cr Clr Drug Dosing 83.5 Est GFR ( Amer) 109.4 Est GFR (Non-Af Amer) 94.4 BUN/Creatinine Ratio 12.8 Glucose 133 H POC Glucose Osmolality Calcium 7.7 L Magnesium Total Bilirubin AST ALT Alkaline Phosphatase Total Protein Albumin Globulin Albumin/Globulin Ratio TSH Urine Color Yellow Urine Appearance Clear Urine pH 7.5 Ur Specific Ruby 1.014 Urine Protein Negative Urine Glucose (UA) Negative Urine Ketones 1+ H Urine Blood Negative Urine Nitrite Negative Urine Bilirubin Negative Urine Urobilinogen Negative Ur Leukocyte Esterase Negative Urine WBC (Auto) 0 Urine RBC (Auto) 5-10 H U Hyaline Cast (Auto) 0 U Epithel Cells (Auto) 0-5 Urine Bacteria (Auto) Negative Urine Osmolality Ur Random Sodium Salicylates Urine Opiates Screen Ur Methadone, Qual Acetaminophen Urine Barbiturates Ur Phencyclidine (PCP) U Amphetamin/Meth Scrn MDMA (Ecstasy) Screen U Benzodiazepines Scrn Ur Cocaine Metabolite U Marijuana (THC) Screen U Marijuana THC Carboxy Pending Ethyl Alcohol mg/dL 12/06/18 12/06/18 12/06/18 05:18 06:38 06:38 WBC RBC Hgb Hct MCV MCH MCHC RDW Std Deviation RDW Coeff of Jerome Plt Count MPV Immature Gran % (Auto) Neut % (Auto) Lymph % (Auto) [place] % (Auto) Eos % (Auto) Baso % (Auto) Immature Gran # (Auto) Neut # (Auto) Lymph # (Auto) [place] # (Auto) Eos # (Auto) Baso # (Auto) PT INR Sodium Potassium Chloride Carbon Dioxide Anion Gap BUN Creatinine Est Cr Clr Drug Dosing Est GFR ( Amer) Est GFR (Non-Af Amer) BUN/Creatinine Ratio Glucose POC Glucose Osmolality 267 L Calcium Magnesium Total Bilirubin AST ALT Alkaline Phosphatase Total Protein Albumin Globulin Albumin/Globulin Ratio TSH Urine Color Urine Appearance Urine pH Ur Specific Ruby Urine Protein Urine Glucose (UA) Urine Ketones Urine Blood Urine Nitrite Urine Bilirubin Urine Urobilinogen Ur Leukocyte Esterase Urine WBC (Auto) Urine RBC (Auto) U Hyaline Cast (Auto) U Epithel Cells (Auto) Urine Bacteria (Auto) Urine Osmolality 218 L Ur Random Sodium 70 Salicylates Urine Opiates Screen Ur Methadone, Qual Acetaminophen Urine Barbiturates Ur Phencyclidine (PCP) U Amphetamin/Meth Scrn MDMA (Ecstasy) Screen U Benzodiazepines Scrn Ur Cocaine Metabolite U Marijuana (THC) Screen U Marijuana THC Carboxy Ethyl Alcohol mg/dL 12/06/18 12/06/18 12/06/18 07:43 08:02 09:30 WBC RBC Hgb Hct MCV MCH MCHC RDW Std Deviation RDW Coeff of Jerome Plt Count MPV Immature Gran % (Auto) Neut % (Auto) Lymph % (Auto) [place] % (Auto) Eos % (Auto) Baso % (Auto) Immature Gran # (Auto) Neut # (Auto) Lymph # (Auto) [place] # (Auto) Eos # (Auto) Baso # (Auto) PT INR Sodium 129 L 129 L Potassium 3.5 2.9 L D Chloride 95 L 96 L Carbon Dioxide 29 27 Anion Gap 5.0 7.0 BUN 10 10 Creatinine 0.78 0.69 Est Cr Clr Drug Dosing 81.4 92.0 Est GFR ( Amer) 108.3 113.9 Est GFR (Non-Af Amer) 93.4 98.2 BUN/Creatinine Ratio 12.5 13.8 Glucose 124 H 188 H POC Glucose 112 H Osmolality Calcium 8.4 L 8.1 L Magnesium Total Bilirubin AST ALT Alkaline Phosphatase Total Protein Albumin Globulin Albumin/Globulin Ratio TSH Urine Color Urine Appearance Urine pH Ur Specific Ruby Urine Protein Urine Glucose (UA) Urine Ketones Urine Blood Urine Nitrite Urine Bilirubin Urine Urobilinogen Ur Leukocyte Esterase Urine WBC (Auto) Urine RBC (Auto) U Hyaline Cast (Auto) U Epithel Cells (Auto) Urine Bacteria (Auto) Urine Osmolality Ur Random Sodium Salicylates Urine Opiates Screen Ur Methadone, Qual Acetaminophen Urine Barbiturates Ur Phencyclidine (PCP) U Amphetamin/Meth Scrn MDMA (Ecstasy) Screen U Benzodiazepines Scrn Ur Cocaine Metabolite U Marijuana (THC) Screen U Marijuana THC Carboxy Ethyl Alcohol mg/dL 12/06/18 12/06/18 12/06/18 11:41 12:38 16:19 WBC RBC Hgb Hct MCV MCH MCHC RDW Std Deviation RDW Coeff of Jerome Plt Count MPV Immature Gran % (Auto) Neut % (Auto) Lymph % (Auto) [place] % (Auto) Eos % (Auto) Baso % (Auto) Immature Gran # (Auto) Neut # (Auto) Lymph # (Auto) [place] # (Auto) Eos # (Auto) Baso # (Auto) PT INR Sodium 130 L Potassium 3.2 L Chloride 97 L Carbon Dioxide 26 Anion Gap 7.0 BUN 11 Creatinine 0.71 Est Cr Clr Drug Dosing 89.4 Est GFR ( Amer) 112.5 Est GFR (Non-Af Amer) 97.1 BUN/Creatinine Ratio 16.1 Glucose 177 H POC Glucose 147 H 136 H Osmolality Calcium 8.0 L Magnesium Total Bilirubin AST ALT Alkaline Phosphatase Total Protein Albumin Globulin Albumin/Globulin Ratio TSH Urine Color Urine Appearance Urine pH Ur Specific Ruby Urine Protein Urine Glucose (UA) Urine Ketones Urine Blood Urine Nitrite Urine Bilirubin Urine Urobilinogen Ur Leukocyte Esterase Urine WBC (Auto) Urine RBC (Auto) U Hyaline Cast (Auto) U Epithel Cells (Auto) Urine Bacteria (Auto) Urine Osmolality Ur Random Sodium Salicylates Urine Opiates Screen Ur Methadone, Qual Acetaminophen Urine Barbiturates Ur Phencyclidine (PCP) U Amphetamin/Meth Scrn MDMA (Ecstasy) Screen U Benzodiazepines Scrn Ur Cocaine Metabolite U Marijuana (THC) Screen U Marijuana THC Carboxy Ethyl Alcohol mg/dL 12/06/18 12/06/18 16:42 19:50 WBC RBC Hgb Hct MCV MCH MCHC RDW Std Deviation RDW Coeff of Jerome Plt Count MPV Immature Gran % (Auto) Neut % (Auto) Lymph % (Auto) [place] % (Auto) Eos % (Auto) Baso % (Auto) Immature Gran # (Auto) Neut # (Auto) Lymph # (Auto) [place] # (Auto) Eos # (Auto) Baso # (Auto) PT INR Sodium 133 L 131 L Potassium 3.5 3.5 Chloride 101 99 Carbon Dioxide 26 25 Anion Gap 6.0 7.0 BUN 13 12 Creatinine 0.71 0.82 Est Cr Clr Drug Dosing 89.4 77.4 Est GFR ( Amer) 112.5 106.1 Est GFR (Non-Af Amer) 97.1 91.5 BUN/Creatinine Ratio 18.9 15.2 Glucose 126 H 163 H POC Glucose Osmolality Calcium 7.6 L 7.7 L Magnesium Total Bilirubin AST ALT Alkaline Phosphatase Total Protein Albumin Globulin Albumin/Globulin Ratio TSH Urine Color Urine Appearance Urine pH Ur Specific Ruby Urine Protein Urine Glucose (UA) Urine Ketones Urine Blood Urine Nitrite Urine Bilirubin Urine Urobilinogen Ur Leukocyte Esterase Urine WBC (Auto) Urine RBC (Auto) U Hyaline Cast (Auto) U Epithel Cells (Auto) Urine Bacteria (Auto) Urine Osmolality Ur Random Sodium Salicylates Urine Opiates Screen Ur Methadone, Qual Acetaminophen Urine Barbiturates Ur Phencyclidine (PCP) U Amphetamin/Meth Scrn MDMA (Ecstasy) Screen U Benzodiazepines Scrn Ur Cocaine Metabolite U Marijuana (THC) Screen U Marijuana THC Carboxy Ethyl Alcohol mg/dL (1) Hypertension Hypertension type: unspecified Qualified Code(s): I10 - Essential (primary) hypertension
[2018-12-06] MEDS: LOXAPINE 10 MG PO SCH (21:48)
[2018-12-07 00:47] LABS: Calcium 7.3 mg/dl (8.5-10.1); Est GFR (African American) 118.1; Est GFR (Non-African American) 101.9; Potassium 3.6 mmol/L (3.5-5.1)
[2018-12-07] MEDS: DESMOPRESSIN ACETATE 2 MCG in SODIUM CHLORIDE 0.9% 50 ML IV SCH ×2 (01:25→08:12)
[2018-12-07] MEDS: D5W AND NSS 1,000 ML IV SCH ×3 (05:17→22:17)
[2018-12-07 06:23] LABS: Basophils # (auto) 0.01 K/uL (0-0.2); Basophils % (auto) 0.1 %; Hematocrit (blood only) 37.8 % (42-52); Hemoglobin 13.4 g/dL (14.0-18.0); Immature Granulocytes # (auto) 0.01 K/uL (0.00-0.02); Immature Granulocytes % (auto) 0.1 %; Lymphocytes # (auto) 1.97 K/uL (1.2-3.4); Lymphocytes % (auto) 20.4 %; Mean Corpuscular Hgb Conc 35.4 g/dL (32-36); Mean Corpuscular Volume 88.9 fL (80-100); Mean Platelet Volume 10.9 fL (7.4-10.4); Monocytes % (auto) 10.3 %; Neutrophils # (auto) 6.59 K/uL (1.4-6.5); Neutrophils % (auto) 68.1 %; Platelet Count 182 K/uL (130-400); RDW Coefficient of Variation 12.6 % (11.5-14.5); RDW Standard Deviation 40.2 fL (36.4-46.3); Red Blood Count 4.25 M/uL (4.7-6.1); White Blood Count 9.68 K/uL (4.8-10.8)
[2018-12-07 06:45] LABS: BUN Creatinine Ratio 13.1 (10-20); Creatinine Clr Calc Pharmacy 108.2 ml/min; Est GFR (African American) 122.3; Est GFR (Non-African American) 105.5; Magnesium 1.8 mg/dl (1.8-2.4); Potassium 3.5 mmol/L (3.5-5.1)
[2018-12-07 07:34] LABS: Estimated Average Glucose 137 mg/dl; Hemoglobin A1C 6.4 % (4.5-5.6)
[2018-12-07] MEDS: AMLODIPINE BESYLATE 5 MG TAB PO SCH (08:04)
[2018-12-07] MEDS: HEPARIN SOD 5,000 UNIT/0.5 ML VIAL SQ SCH ×2 (08:05→20:25)
[2018-12-07] MEDS: LOXAPINE 10 MG PO SCH ×2 (08:05→20:25)
[2018-12-07] MEDS: NICOTINE 21 MG/24 HR TDSY TD SCH (08:05)
[2018-12-07] MEDS: QUETIAPINE FUMARATE 100 MG TABLET PO SCH ×2 (08:06→20:24)
[2018-12-07] MEDS: HydrALAZINE TAB 50 MG TAB PO SCH ×2 (08:06→20:26)
[2018-12-07] MEDS: CARVEDILOL 25 MG TAB PO SCH ×2 (08:07→20:23)
[2018-12-07] MEDS: LISINOPRIL 40 MG TAB PO SCH (08:08)
[2018-12-07] MEDS: INSULIN ASPART 100 UNITS/ML 3 ML PEN SC SCH ×4 (08:08→21:11)
--- NOTE | 2018-12-07 13:25 | Psychiatric Progress Note ---
Date of Service December 07, 2018 Impression / Recommendations Impression 67-year-old male admitted medically on 12/06/2018 on a 302 warrant with petitioning statement completed by his , stating he was paranoid that he was going to and was not eating well. He has a history of schizophrenia which is managed by his PCP, and reports good medication compliance. Patient received haloperidol 10 mg and lorazepam 2 mg while in the emergency department, and was sedated yesterday, but today is alert and appears to have returned to baseline. His is apparently coming in to visit this afternoon, so we will follow-up with her to determine if he is at baseline, and if she has any additional concerns. At this time, he does not meet criteria for inpatient psychiatric treatment. Risk Factors Assessment Do You Have Access To A Gun?: Yes (reported by Brando estevez) Interval History Identifying Information 67-year-old male admitted medically on 12/06/2018 on a 302 warrant with petitioning statement completed by his . had reportedly called 911 due to concerns for increasing paranoid and delusional behavior. Chief Complaint "Well, I got a tension headache". Review of Systems Notes 10 systems reviewed; negative except as stated above. Subjective Subjective Patient was seen & assessed and interval progress reviewed with the liaison nurse and in the record. The patient is seen today for follow-up. He is alert and willing to engage in the interview. He states that he is feeling better, denies hallucinations, paranoia, mood symptoms, and anxiety. He reports good appetite and sleep. He denies thoughts of harming himself or anyone else. The 302 petition which was completed by his states the patient was saying he was going to that night, called his in [facility] anglican her, watches her sleep and shower, would not eat, and was drinking coffee and smoking cigarettes all day. The patient states he remembers that he was having "weird thoughts," but cannot recall the details of them other than "I thought I was going to ." He says his was feeling "stressed due to dealing with me." He says that now his thoughts are "pretty good," denies safety concerns, and states that he feels "isolated in here," and wants to go home. He reports good medication compliance, and is willing to follow up with his PCP. Physical Exam Psychiatric Orientation: alert, oriented x 3 and cooperative Appears older than stated age. Tanned, white haired, mustache. Dressed in a hospital gown. Eye Contact: good eye contact Motor Behavior: no abnormal motor movements Speech: normal rate/rhythm/volume of speech Affect: euthymic affect and mood congruent with affect Mood: no depressed mood and no anxious mood Thought Process: goal directed thought process Thought Content: reality based without delusions Suicidal Thoughts: denies suicidal thoughts Homicidal Thoughts: denies homicidal thoughts Hallucinations: no auditory hallucinations and no visual hallucinations Cognition: attention grossly intact and language grossly intact; + recent memory not intact Insight: + fair insight Judgement: + fair judgement Vital Signs (Past 24 Hours) Last Vital Signs Temp 36.7 C 12/07/18 11:57 Pulse 76 12/07/18 11:57 Resp 18 12/07/18 11:57 BP 166/85 H 12/07/18 11:57 Pulse Ox 97 12/07/18 11:57 Results & Data Laboratory Results Laboratory Results - last 24 hr 12/06/18 12/06/18 12/06/18 16:19 16:42 19:50 WBC RBC Hgb Hct MCV MCH MCHC RDW Std Deviation RDW Coeff of Jerome Plt Count MPV Immature Gran % (Auto) Neut % (Auto) Lymph % (Auto) [place] % (Auto) Eos % (Auto) Baso % (Auto) Immature Gran # (Auto) Neut # (Auto) Lymph # (Auto) [place] # (Auto) Eos # (Auto) Baso # (Auto) Sodium 133 L 131 L Potassium 3.5 3.5 Chloride 101 99 Carbon Dioxide 26 25 Anion Gap 6.0 7.0 BUN 13 12 Creatinine 0.71 0.82 Est Cr Clr Drug Dosing 89.4 77.4 Est GFR ( Amer) 112.5 106.1 Est GFR (Non-Af Amer) 97.1 91.5 BUN/Creatinine Ratio 18.9 15.2 Glucose 126 H 163 H POC Glucose 136 H Estimat Average Glucose Hemoglobin A1c Calcium 7.6 L 7.7 L Magnesium 12/06/18 12/07/18 12/07/18 20:46 00:10 05:33 WBC 9.68 RBC 4.25 L Hgb 13.4 L Hct 37.8 L MCV 88.9 MCH 31.5 MCHC 35.4 RDW Std Deviation 40.2 RDW Coeff of Jerome 12.6 Plt Count 182 MPV 10.9 H Immature Gran % (Auto) 0.1 Neut % (Auto) 68.1 Lymph % (Auto) 20.4 [place] % (Auto) 10.3 Eos % (Auto) 1.0 Baso % (Auto) 0.1 Immature Gran # (Auto) 0.01 Neut # (Auto) 6.59 H Lymph # (Auto) 1.97 [place] # (Auto) 1.00 H Eos # (Auto) 0.10 Baso # (Auto) 0.01 Sodium 130 L Potassium 3.6 Chloride 99 Carbon Dioxide 25 Anion Gap 5.0 BUN 11 Creatinine 0.62 Est Cr Clr Drug Dosing 101.0 Est GFR ( Amer) 118.1 Est GFR (Non-Af Amer) 101.9 BUN/Creatinine Ratio 17.0 Glucose 127 H POC Glucose 80 Estimat Average Glucose Hemoglobin A1c Calcium 7.3 L Magnesium 12/07/18 12/07/18 12/07/18 05:33 05:33 07:28 WBC RBC Hgb Hct MCV MCH MCHC RDW Std Deviation RDW Coeff of Jerome Plt Count MPV Immature Gran % (Auto) Neut % (Auto) Lymph % (Auto) [place] % (Auto) Eos % (Auto) Baso % (Auto) Immature Gran # (Auto) Neut # (Auto) Lymph # (Auto) [place] # (Auto) Eos # (Auto) Baso # (Auto) Sodium 130 L Potassium 3.5 Chloride 99 Carbon Dioxide 25 Anion Gap 6.0 BUN 7 Creatinine 0.57 L Est Cr Clr Drug Dosing 108.2 Est GFR ( Amer) 122.3 Est GFR (Non-Af Amer) 105.5 BUN/Creatinine Ratio 13.1 Glucose 118 H POC Glucose 131 H Estimat Average Glucose 137 Hemoglobin A1c 6.4 H Calcium 7.0 L Magnesium 1.8 12/07/18 11:06 WBC RBC Hgb Hct MCV MCH MCHC RDW Std Deviation RDW Coeff of Jerome Plt Count MPV Immature Gran % (Auto) Neut % (Auto) Lymph % (Auto) [place] % (Auto) Eos % (Auto) Baso % (Auto) Immature Gran # (Auto) Neut # (Auto) Lymph # (Auto) [place] # (Auto) Eos # (Auto) Baso # (Auto) Sodium Potassium Chloride Carbon Dioxide Anion Gap BUN Creatinine Est Cr Clr Drug Dosing Est GFR ( Amer) Est GFR (Non-Af Amer) BUN/Creatinine Ratio Glucose POC Glucose 120 H Estimat Average Glucose Hemoglobin A1c Calcium Magnesium Current Inpatient Medications Current Inpatient Medications: Current Inpatient Medications Acetaminophen (Tylenol) 650 mg PO Q4H PRN PRN Reason: Pain or Fever Stop: 01/05/19 06:06 Albuterol (Ventolin 0.083% 2.5mg/3ml) 2.5 mg INH Q4 PRN PRN Reason: Shortness Of Breath Or Wheezing Stop: 01/05/19 06:06 Amlodipine Besylate (Norvasc) 10 mg PO QAM NATALYA Stop: 01/05/19 08:59 Last Admin: 12/07/18 08:04 Dose: 10 mg Documented by: Carvedilol (Coreg) 12.5 mg PO BID NATALYA Stop: 01/05/19 08:59 Last Admin: 12/07/18 08:07 Dose: 12.5 mg Documented by: Dextrose (Dextrose 50%) 25 - 50 ml IV UD PRN; Protocol PRN Reason: Hypoglycemia Protocol Stop: 01/05/19 07:59 Glucagon (Glucagen) 1 mg IM UD PRN; Protocol PRN Reason: Hypoglycemia Protocol Stop: 01/05/19 07:59 Glucose (Glucose 40%) 15 - 30 gm PO UD PRN; Protocol PRN Reason: Hypoglycemia Protocol Stop: 01/05/19 07:59 Glucose (Dex4 Glucose) 4 - 8 tabs PO UD PRN; Protocol PRN Reason: Hypoglycemia Protocol Stop: 01/05/19 07:59 Heparin Sodium (Porcine) (Heparin Sodium (Porcine)) 5,000 units SQ Q12 NATALYA Stop: 01/05/19 08:59 Last Admin: 12/07/18 08:05 Dose: Not Given Documented by: Hydralazine HCl (Apresoline) 50 mg PO BID NATALYA Stop: 01/05/19 08:59 Last Admin: 12/07/18 08:06 Dose: 50 mg Documented by: Hydralazine HCl (Hydralazine Hcl) 5 mg IV Q6H PRN PRN Reason: Hypertension Stop: 01/05/19 07:44 Dextrose/Sodium Chloride (D5w And Nss) 1,000 mls @ 150 mls/hr IV .Q6H40M [facility] Stop: 01/05/19 06:14 Last Admin: 12/07/18 12:31 Dose: 150 mls/hr Documented by: Desmopressin Acetate 2 mcg/ (Sodium Chloride) 50.5 mls @ 100 mls/hr IV Q8H [facility] Stop: 01/05/19 08:59 Last Infusion: 12/07/18 08:48 Dose: Infused Documented by: Insulin Aspart (Novolog Flexpen) 0 units SC ACHS [facility] Stop: 01/05/19 07:29 Last Admin: 12/07/18 12:08 Dose: Not Given Documented by: Lisinopril (Zestril) 40 mg PO DAILY [facility] Stop: 01/05/19 08:59 Last Admin: 12/07/18 08:08 Dose: 40 mg Documented by: Loxapine Succinate (Loxapine) 1 ea PO QAM [facility] Stop: 01/06/19 08:59 Last Admin: 12/07/18 08:05 Dose: 1 ea Documented by: Loxapine Succinate (Loxapine) 2 ea PO QPM [facility] Stop: 01/05/19 20:59 Last Admin: 12/06/18 21:48 Dose: 2 ea Documented by: Miscellaneous (Remove Nicoderm Patch) 1 ea N/A HS [facility] Stop: 01/05/19 20:59 Last Admin: 12/06/18 21:51 Dose: 1 ea Documented by: Miscellaneous (Carbohydrates For Hypoglycemia) 15 - 30 gm PO UD PRN PRN Reason: Hypoglycemia Treatment Stop: 01/05/19 07:59 Nicotine (Nicoderm Cq) 21 mg TD QAM [facility] Stop: 01/05/19 08:59 Last Admin: 12/07/18 08:05 Dose: 21 mg Documented by: Nitroglycerin (Nitrostat) 0.4 mg SL UD PRN PRN Reason: Chest Pain Stop: 01/05/19 06:06 Ondansetron HCl (Zofran) 4 mg IV Q6H PRN PRN Reason: Nausea Stop: 01/05/19 06:06 Quetiapine Fumarate (Seroquel) 100 mg PO BID [facility] Stop: 01/05/19 08:59 Last Admin: 12/07/18 08:06 Dose: 100 mg Documented by: CPT Code CPT Code [id number]
--- NOTE | 2018-12-07 16:25 | Nephrology Progress Note ---
Date of Service December 07, 2018 Assessment & Plan (1) Hyponatremia: Patient with hypoosmolar hyponatremia likely due to hypovolemia. His Na overcorrected quickly after restoring volume status. Target rate of correction is 6-8 in 24 hrs. Na today 130. Will stop ddavp after morning dose. Continue D5 water at 150 for now. repeat BMP ordered stat. (2) Acute hypokalemia: K is better. Avoid further K correction as this will lead to further rise in Na (3) Hypertension: Above target but acceptable. Continue current regimen. Continue holding maxizide. Subjective Patient seen in follow up for low Na. he feels fine. He is complaining of neck stiffness due to lying in bed. he is eager to go home. Still has 1:1 sitter. he is not aggressive. No SOB or urinary symptoms Review of Systems Review of Systems: All systems reviewed & are unremarkable except as noted in HPI & below Physical Exam Physical Exam: General exam: Appears comfortable, no acute distress HEENT: Pupils are equal and reactive to light Neck: No JVD, neck is supple trachea is midline Respiratory system: Clear breath sounds bilaterally. Gastrointestinal: Abdomen is soft, non distended, non tender, bowel sounds are present CVS: Regular rate and rhythm. No murmurs, rubs or gallops Musculoskeletal: No joint or muscle tenderness Extremities: Non tender, no edema, peripheral pulses are present Neuro: Oriented, no tremors, no focal neurological deficits Skin: No rashes Results & Data Vital Signs (Past 12 Hours) Vital Signs Temp Pulse Pulse Resp BP BP Pulse Ox 12/07/18 15:40 36.6 C 77 21 164/92 H 97 12/07/18 14:54 79 12/07/18 11:57 36.7 C 76 18 166/85 H 97 12/07/18 07:28 77 12/07/18 06:55 36.5 C 67 22 167/93 H 97 12/07/18 05:00 69 Laboratory Results Laboratory Results - last 24 hr 12/06/18 12/06/18 12/06/18 16:19 16:42 19:50 WBC RBC Hgb Hct MCV MCH MCHC RDW Std Deviation RDW Coeff of Jerome Plt Count MPV Immature Gran % (Auto) Neut % (Auto) Lymph % (Auto) Cherry % (Auto) Eos % (Auto) Baso % (Auto) Immature Gran # (Auto) Neut # (Auto) Lymph # (Auto) Cherry # (Auto) Eos # (Auto) Baso # (Auto) Sodium 133 L 131 L Potassium 3.5 3.5 Chloride 101 99 Carbon Dioxide 26 25 Anion Gap 6.0 7.0 BUN 13 12 Creatinine 0.71 0.82 Est Cr Clr Drug Dosing 89.4 77.4 Est GFR ( Amer) 112.5 106.1 Est GFR (Non-Af Amer) 97.1 91.5 BUN/Creatinine Ratio 18.9 15.2 Glucose 126 H 163 H POC Glucose 136 H Estimat Average Glucose Hemoglobin A1c Calcium 7.6 L 7.7 L Magnesium 12/06/18 12/07/18 12/07/18 20:46 00:10 05:33 WBC 9.68 RBC 4.25 L Hgb 13.4 L Hct 37.8 L MCV 88.9 MCH 31.5 MCHC 35.4 RDW Std Deviation 40.2 RDW Coeff of Jerome 12.6 Plt Count 182 MPV 10.9 H Immature Gran % (Auto) 0.1 Neut % (Auto) 68.1 Lymph % (Auto) 20.4 Cherry % (Auto) 10.3 Eos % (Auto) 1.0 Baso % (Auto) 0.1 Immature Gran # (Auto) 0.01 Neut # (Auto) 6.59 H Lymph # (Auto) 1.97 Cherry # (Auto) 1.00 H Eos # (Auto) 0.10 Baso # (Auto) 0.01 Sodium 130 L Potassium 3.6 Chloride 99 Carbon Dioxide 25 Anion Gap 5.0 BUN 11 Creatinine 0.62 Est Cr Clr Drug Dosing 101.0 Est GFR ( Amer) 118.1 Est GFR (Non-Af Amer) 101.9 BUN/Creatinine Ratio 17.0 Glucose 127 H POC Glucose 80 Estimat Average Glucose Hemoglobin A1c Calcium 7.3 L Magnesium 12/07/18 12/07/18 12/07/18 05:33 05:33 07:28 WBC RBC Hgb Hct MCV MCH MCHC RDW Std Deviation RDW Coeff of Jerome Plt Count MPV Immature Gran % (Auto) Neut % (Auto) Lymph % (Auto) Cherry % (Auto) Eos % (Auto) Baso % (Auto) Immature Gran # (Auto) Neut # (Auto) Lymph # (Auto) Cherry # (Auto) Eos # (Auto) Baso # (Auto) Sodium 130 L Potassium 3.5 Chloride 99 Carbon Dioxide 25 Anion Gap 6.0 BUN 7 Creatinine 0.57 L Est Cr Clr Drug Dosing 108.2 Est GFR ( Amer) 122.3 Est GFR (Non-Af Amer) 105.5 BUN/Creatinine Ratio 13.1 Glucose 118 H POC Glucose 131 H Estimat Average Glucose 137 Hemoglobin A1c 6.4 H Calcium 7.0 L Magnesium 1.8 12/07/18 11:06 WBC RBC Hgb Hct MCV MCH MCHC RDW Std Deviation RDW Coeff of Jerome Plt Count MPV Immature Gran % (Auto) Neut % (Auto) Lymph % (Auto) Cherry % (Auto) Eos % (Auto) Baso % (Auto) Immature Gran # (Auto) Neut # (Auto) Lymph # (Auto) Cherry # (Auto) Eos # (Auto) Baso # (Auto) Sodium Potassium Chloride Carbon Dioxide Anion Gap BUN Creatinine Est Cr Clr Drug Dosing Est GFR ( Amer) Est GFR (Non-Af Amer) BUN/Creatinine Ratio Glucose POC Glucose 120 H Estimat Average Glucose Hemoglobin A1c Calcium Magnesium (1) Hypertension Hypertension type: unspecified Qualified Code(s): I10 - Essential (primary) hypertension
[2018-12-07 16:44] LABS: BUN Creatinine Ratio 15.2 (10-20); Calcium 7.9 mg/dl (8.5-10.1); Creatinine Clr Calc Pharmacy 102.8 ml/min; Est GFR (African American) 119.7; Est GFR (Non-African American) 103.3; Potassium 3.3 mmol/L (3.5-5.1)
--- NOTE | 2018-12-07 18:09 | Hospitalist Progress Note ---
Date of Service December 07, 2018 Assessment & Plan (1) Hyponatremia: Cont D5 @ current rate. Desmopressin stopped. Pt appears euvolemic on exam. Nephro consulted. Trend sodium in am. (2) Paranoid schizophrenia: Records reviewed with patient brought in on a petition completed by the patient's . The patient reportedly stated he was going to . He reportedly owns a gun but does not admit to this to me. Per his the patient has been making paranoid statements and harassing neighbors and people driving by their home. He was watching her sleep and shower and told her she was a Satan worshipper. His behavior has been paranoid and he continues to drink coffee and smoke cigarettes all day. He wont put out the trash because he is afraid it will be stolen. He was paranoid that something in the mail was a bomb. Defer management to psychiatry. Continue Seroquel and loxapine per home regimen. (3) Suicidal ideation: Has safe trays ordered because of the nature of the admission. No martha SI or HI but patient was convinced he was going to for some reason so this and 1:1 observation is a precaution. (4) DMII (diabetes mellitus, type 2): ISS ordered without carb coverage. A1C reflects good control with metformin. Cont current treatment plan. (5) Smoker: Nicotine patch, advised to quit. (6) Hypertension: at goal, cont home medications except Maxzide which is being held. (7) DVT prophylaxis: Heparin Full Dispo-uncertain, pending psychiatric evaluation and recommendations. Mariam Felipe, [facility] Hospitalist Subjective Feeling well, doesn't appear to think anyone is going to harm him today with any urgency, but im not convinced he doesn't feel that way by his response. He denies any nausea or malaise or other symptoms at this time. He appeared somewhat shaky and has been away from cigarettes with a nicotine patch on while admitted. He then asked if he was going home and we discussed the reported behaviors that brought him here. He denied all of them. He states "I don't want to go to [facility] [place]." I informed him I didn't think that was going to happen, and that we were still trying to correct his electrolytes. He appeared more defensive and started talking about his time in the [employer] and the fact that he has a 50% connected disability for schizophrenia, but then questioning the diagnosis to me as if he is not a schizophrenic. I informed him that I was prior and understood the process myself, and that just because he is only 50% service connected with his disability doesn't have anything to do with the diagnosis of schizohrenia which has been well established. He was still upset and wanted some coffee, starting going on about how he is not offered anything to drink here with dinner. He is not fluid restricted, so this was confusing to me. We got him some coffee and I again tried to reassure him. Review of Systems Review of Systems: All systems reviewed & are unremarkable except as noted in HPI & below Physical Exam Physical Exam: CONSTITUTIONAL: WNWD, vitals as above, generally well- appearing EYES: normal conjunctivae, no scleral icterus ENT: MMM RESPIRATORY: clear to auscultation bilaterally, no crackles, rales or wheezes, normal respiratory effort CARDIOVASCULAR: regular rate and rhythm, S1 and 2 heard without murmurs, gallops or rubs, no JVD, no peripheral edema GASTROINTESTINAL: soft, nontender, nondistended MUSCULOSKELETAL: strength 5/5 throughout, head is normocephalic and atraumatic SKIN: warm and dry NEUROLOGIC: CN 2-12 grossly intact, normal cognition, normal speech, no gross focal deficits. PSYCHIATRIC: alert cooperative and oriented to person, place and time but did start to become defensive and off at the end of the examination Results & Data Vital Signs (Past 12 Hours) Vital Signs Temp Pulse Pulse Resp BP BP Pulse Ox 12/07/18 15:40 36.6 C 77 21 164/92 H 97 12/07/18 14:54 79 12/07/18 11:57 36.7 C 76 18 166/85 H 97 12/07/18 07:28 77 12/07/18 06:55 36.5 C 67 22 167/93 H 97 Laboratory Results Short CBC 12/07/18 Range/Units 05:33 WBC 9.68 (4.8-10.8) K/uL Hgb 13.4 L (14.0-18.0) g/dL Hct 37.8 L (42-52) % Plt Count 182 (130-400) K/uL BMP 12/06/18 12/07/18 12/07/18 19:50 00:10 05:33 Sodium 131 L 130 L 130 L Potassium 3.5 3.6 3.5 Chloride 99 99 99 Carbon Dioxide 25 25 25 BUN 12 11 7 Creatinine 0.82 0.62 0.57 L Glucose 163 H 127 H 118 H Calcium 7.7 L 7.3 L 7.0 L 12/07/18 16:19 Sodium 129 L Potassium 3.3 L Chloride 97 L Carbon Dioxide 26 BUN 9 Creatinine 0.60 Glucose 120 H Calcium 7.9 L Medications Administered Current Inpatient Medications Acetaminophen (Tylenol) 650 mg PO Q4H PRN PRN Reason: Pain or Fever Stop: 01/05/19 06:06 Albuterol (Ventolin 0.083% 2.5mg/3ml) 2.5 mg INH Q4 PRN PRN Reason: Shortness Of Breath Or Wheezing Stop: 01/05/19 06:06 Amlodipine Besylate (Norvasc) 10 mg PO QAM [facility] Stop: 01/05/19 08:59 Last Admin: 12/07/18 08:04 Dose: 10 mg Documented by: Carvedilol (Coreg) 12.5 mg PO BID [facility] Stop: 01/05/19 08:59 Last Admin: 12/07/18 08:07 Dose: 12.5 mg Documented by: Dextrose (Dextrose 50%) 25 - 50 ml IV UD PRN; Protocol PRN Reason: Hypoglycemia Protocol Stop: 01/05/19 07:59 Glucagon (Glucagen) 1 mg IM UD PRN; Protocol PRN Reason: Hypoglycemia Protocol Stop: 01/05/19 07:59 Glucose (Glucose 40%) 15 - 30 gm PO UD PRN; Protocol PRN Reason: Hypoglycemia Protocol Stop: 01/05/19 07:59 Glucose (Dex4 Glucose) 4 - 8 tabs PO UD PRN; Protocol PRN Reason: Hypoglycemia Protocol Stop: 01/05/19 07:59 Heparin Sodium (Porcine) (Heparin Sodium (Porcine)) 5,000 units SQ Q12 [facility] Stop: 01/05/19 08:59 Last Admin: 12/07/18 08:05 Dose: Not Given Documented by: Hydralazine HCl (Apresoline) 50 mg PO BID [facility] Stop: 01/05/19 08:59 Last Admin: 12/07/18 08:06 Dose: 50 mg Documented by: Hydralazine HCl (Hydralazine Hcl) 5 mg IV Q6H PRN PRN Reason: Hypertension Stop: 01/05/19 07:44 Dextrose/Sodium Chloride (D5w And Nss) 1,000 mls @ 150 mls/hr IV .Q6H40M [facility] Stop: 01/05/19 06:14 Last Admin: 12/07/18 12:31 Dose: 150 mls/hr Documented by: Desmopressin Acetate 2 mcg/ (Sodium Chloride) 50.5 mls @ 100 mls/hr IV Q8H [facility] Stop: 01/05/19 08:59 Last Infusion: 12/07/18 08:48 Dose: Infused Documented by: Insulin Aspart (Novolog Flexpen) 0 units SC ACHS [facility] Stop: 01/05/19 07:29 Last Admin: 12/07/18 17:31 Dose: Not Given Documented by: Lisinopril (Zestril) 40 mg PO DAILY [facility] Stop: 01/05/19 08:59 Last Admin: 12/07/18 08:08 Dose: 40 mg Documented by: Loxapine Succinate (Loxapine) 1 ea PO QAM [facility] Stop: 01/06/19 08:59 Last Admin: 12/07/18 08:05 Dose: 1 ea Documented by: Loxapine Succinate (Loxapine) 2 ea PO QPM [facility] Stop: 01/05/19 20:59 Last Admin: 12/06/18 21:48 Dose: 2 ea Documented by: Miscellaneous (Remove Nicoderm Patch) 1 ea N/A HS [facility] Stop: 01/05/19 20:59 Last Admin: 12/06/18 21:51 Dose: 1 ea Documented by: Miscellaneous (Carbohydrates For Hypoglycemia) 15 - 30 gm PO UD PRN PRN Reason: Hypoglycemia Treatment Stop: 01/05/19 07:59 Nicotine (Nicoderm Cq) 21 mg TD QAM [facility] Stop: 01/05/19 08:59 Last Admin: 12/07/18 08:05 Dose: 21 mg Documented by: Nitroglycerin (Nitrostat) 0.4 mg SL UD PRN PRN Reason: Chest Pain Stop: 01/05/19 06:06 Ondansetron HCl (Zofran) 4 mg IV Q6H PRN PRN Reason: Nausea Stop: 01/05/19 06:06 Quetiapine Fumarate (Seroquel) 100 mg PO BID [facility] Stop: 01/05/19 08:59 Last Admin: 12/07/18 08:06 Dose: 100 mg Documented by:
[2018-12-08] MEDS ORDERED: cloNIDine HCl 0.1 MG TAB PO ONE (04:44)
[2018-12-08] MEDS: D5W AND NSS 1,000 ML IV SCH ×2 (05:07→08:01)
[2018-12-08] MEDS: INSULIN ASPART 100 UNITS/ML 3 ML PEN SC SCH ×2 (08:00→12:36)
[2018-12-08] MEDS: CARVEDILOL 25 MG TAB PO SCH (08:02)
[2018-12-08 08:03] LABS: BUN Creatinine Ratio 9.7 (10-20); Calcium 8.3 mg/dl (8.5-10.1); Creatinine Clr Calc Pharmacy 88.7 ml/min; Est GFR (African American) 114.4; Est GFR (Non-African American) 98.7; Potassium 3.2 mmol/L (3.5-5.1)
[2018-12-08] MEDS: QUETIAPINE FUMARATE 100 MG TABLET PO SCH (08:04)
[2018-12-08] MEDS: LISINOPRIL 40 MG TAB PO SCH (08:05)
[2018-12-08] MEDS: HEPARIN SOD 5,000 UNIT/0.5 ML VIAL SQ SCH (08:08)
[2018-12-08] MEDS: LOXAPINE 10 MG PO SCH (08:08)
[2018-12-08] MEDS ORDERED: POTASSIUM CHLORIDE 20 MEQ TABCR PO STA (09:06)
[2018-12-08] MEDS: AMLODIPINE BESYLATE 5 MG TAB PO SCH ×2 (09:17→12:57)
[2018-12-08] MEDS: NICOTINE 21 MG/24 HR TDSY TD SCH (09:17)
[2018-12-08] MEDS: HydrALAZINE TAB 50 MG TAB PO SCH ×2 (09:17→12:57)
[2018-12-08] MEDS ORDERED: HydrALAZINE HCL 20 MG/ML VIAL IV STA (10:13)
[2018-12-08] MEDS ORDERED: ZIPRASIDONE 20 MG/ML SDV IM PRN (11:26)
--- NOTE | 2018-12-08 13:04 | Psychiatric Progress Note ---
Date of Service December 08, 2018 Impression / Recommendations Impression 67-year-old male admitted medically on 12/06/2018 on a 302 warrant with petitioning statement completed by his , stating he was paranoid that he was going to and was not eating well. He has a history of schizophrenia which is managed by his PCP, and reports good medication compliance. Patient received haloperidol 10 mg and lorazepam 2 mg while in the emergency department, and was sedated on hospital day 1, and initially appeared improved yesterday. However, his visited him yesterday and reported that he was not at baseline, was paranoid and asking her to check her property to make sure people could not get in. Today he has been agitated and paranoid about his medication, refusing blood pressure medications here with extremely elevated blood pressure of 220/115. He is guarded and easily agitated, and is insisting that he is going home today, despite being informed that he is on a 302 warrant and that we are recommending inpatient psychiatric treatment at the time of medical clearance. (1) Paranoid schizophrenia: 12/07 -continued on home regimen of quetiapine 100 mg twice daily and loxapine 10 mg every morning and 20 mg every afternoon on admission. -Received Haldol 10 and Ativan 2 mg IM in the ER for agitation. QTC prolonged at 478 on admission 2 days ago, we will continue to monitor. We will hold off on increasing antipsychotics until QTc has normalized. - reports concerns that patient is still paranoid and does not feel comfortable taking him home, and he has been more paranoid and agitated here today. Recommend involuntary inpatient psychiatric treatment once medically stabilized, as he is unwilling for voluntary treatment and lacks insight into his illness. -He is eating, but blood pressure and electrolytes have still not normalized. --Encourage staff to have him out of bed and ambulating to help decrease agitation and prevent deconditioning. Present on Admission?: Yes (2) Hyponatremia: 12/08 -sodium has increased to 130, potassium at 3.2. Management per hospitalist service. Present on Admission?: Yes (3) Hypertension: 12/08 -severely hypertensive at 220/115 today, refusing blood pressure medications. Discussed with Dr. Felipe, and advised that blood pressure would need to be within the normal range in order to transfer him to a psychiatric unit, as most are unable to provide IV medications or ongoing cardiac monitoring. Present on Admission?: Yes Risk Factors Assessment Male: Yes : Yes Do You Have Access To A Gun?: Yes (reported by Brando estevez) Health Problems: Yes Mental Health Diagnoses: Yes Substance Use Disorders: No Previous Psychiatric Hospitalization: Yes Hopelessness: No Protective Factors Assessment : Yes Responsible for Young Children: No Employed: No Supportive Family: Yes Interval History Identifying Information 67-year-old male admitted medically on 12/06/2018 on a 302 warrant with petitioning statement completed by his . had reportedly called 911 due to concerns for increasing paranoid and delusional behavior. Chief Complaint "I'm fine". Review of Systems Notes Poor sleep overnight, good appetite Subjective Subjective Patient was seen & assessed and interval progress reviewed with psychiatric liaison nurse and hospitalist. The liaison nurse contacted the patient's , who reported she does not feel comfortable with him coming home as he is still paranoid and delusional, and not at his baseline. He asked her to check the parameters of the property to make sure no one could get in, and talked about disappearing into the night. He has been agitated and uncooperative with medical treatment today, refusing his blood pressure medications with blood pressure of 220/115. On my assessment, he says he is fine and is going home as soon as his gets here. He then says that his is sick with bronchitis and is not coming in. He denies any concerns with his thinking and says there is nothing wrong with him, and he is not even sure he has schizophrenia. In discussing his medical problems on presentation and how these might have influenced his thoughts, he becomes suspicious and asks "have you been reading my records on [address]?" When reviewing the concerns stated in the 302 petition, his responses that his has a mental illness. Reviewed his medical issues including hyponatremia and hypertension, and his refusal to take medications this morning. His response was "you do not even know what I have been through here." He says he will only take his own medications as he does not trust the other medications. Reviewed recommendations that he be hospitalized psychiatrically once he is medically benjamin to address his paranoia and ensure that he has a safe discharge plan, and he continues to demand to leave today. Reminded him that he is on a 302 warrant a cannot leave the hospital. He is able to discuss the involuntary commitment process and seems familiar with it. Physical Exam Psychiatric Appears older than stated age. Thin, dressed in a hospital gown. Partially cooperative with the assessment, easily irritated/agitated. Eye Contact: + fair eye contact Restless movements of legs throughout the interview. Seated on the edge of the bed in no acute distress. Speech: normal rate/rhythm/volume of speech Affect: + irritable affect "I'm fine." Thought Process: + tangential thought process and + looseness of associations Thought Content: + paranoid Suicidal Thoughts: denies suicidal thoughts Homicidal Thoughts: denies homicidal thoughts Hallucinations: no auditory hallucinations and no visual hallucinations Cognition: language grossly intact; + attention not intact Insight: + impaired insight Judgement: + impaired judgement Vital Signs (Past 24 Hours) Last Vital Signs Temp 36.3 C L 12/08/18 11:27 Pulse 72 12/08/18 11:27 Resp 16 12/08/18 11:27 BP 220/115 H 12/08/18 11:27 Pulse Ox 95 12/08/18 11:27 Results & Data Laboratory Results Laboratory Results - last 24 hr 12/07/18 12/07/18 12/07/18 16:19 16:36 20:37 Sodium 129 L Potassium 3.3 L Chloride 97 L Carbon Dioxide 26 Anion Gap 6.0 BUN 9 Creatinine 0.60 Est Cr Clr Drug Dosing 102.8 Est GFR ( Amer) 119.7 Est GFR (Non-Af Amer) 103.3 BUN/Creatinine Ratio 15.2 Glucose 120 H POC Glucose 122 H 116 H Calcium 7.9 L 12/08/18 12/08/18 12/08/18 07:29 07:32 11:35 Sodium 130 L Potassium 3.2 L Chloride 95 L Carbon Dioxide 29 Anion Gap 6.0 BUN 7 Creatinine 0.67 Est Cr Clr Drug Dosing 88.7 Est GFR ( Amer) 114.4 Est GFR (Non-Af Amer) 98.7 BUN/Creatinine Ratio 9.7 L Glucose 128 H POC Glucose 127 H 115 H Calcium 8.3 L Current Inpatient Medications Current Inpatient Medications: Current Inpatient Medications Acetaminophen (Tylenol) 650 mg PO Q4H PRN PRN Reason: Pain or Fever Stop: 01/05/19 06:06 Albuterol (Ventolin 0.083% 2.5mg/3ml) 2.5 mg INH Q4 PRN PRN Reason: Shortness Of Breath Or Wheezing Stop: 01/05/19 06:06 Amlodipine Besylate (Norvasc) 10 mg PO QAM [facility] Stop: 01/05/19 08:59 Last Admin: 12/08/18 09:17 Dose: Not Given Documented by: Carvedilol (Coreg) 12.5 mg PO BID [facility] Stop: 01/05/19 08:59 Last Admin: 12/08/18 08:02 Dose: 12.5 mg Documented by: Dextrose (Dextrose 50%) 25 - 50 ml IV UD PRN; Protocol PRN Reason: Hypoglycemia Protocol Stop: 01/05/19 07:59 Glucagon (Glucagen) 1 mg IM UD PRN; Protocol PRN Reason: Hypoglycemia Protocol Stop: 01/05/19 07:59 Glucose (Glucose 40%) 15 - 30 gm PO UD PRN; Protocol PRN Reason: Hypoglycemia Protocol Stop: 01/05/19 07:59 Glucose (Dex4 Glucose) 4 - 8 tabs PO UD PRN; Protocol PRN Reason: Hypoglycemia Protocol Stop: 01/05/19 07:59 Heparin Sodium (Porcine) (Heparin Sodium (Porcine)) 5,000 units SQ Q12 [facility] Stop: 01/05/19 08:59 Last Admin: 12/08/18 08:08 Dose: Not Given Documented by: Hydralazine HCl (Apresoline) 50 mg PO BID [facility] Stop: 01/05/19 08:59 Last Admin: 12/08/18 09:17 Dose: Not Given Documented by: Hydralazine HCl (Hydralazine Hcl) 5 mg IV Q6H PRN PRN Reason: Hypertension Stop: 01/05/19 07:44 Last Admin: 12/08/18 04:02 Dose: 5 mg Documented by: Insulin Aspart (Novolog Flexpen) 0 units SC ACHS [facility] Stop: 01/05/19 07:29 Last Admin: 12/08/18 12:36 Dose: Not Given Documented by: Lisinopril (Zestril) 40 mg PO DAILY [facility] Stop: 01/05/19 08:59 Last Admin: 12/08/18 08:05 Dose: 40 mg Documented by: Loxapine Succinate (Loxapine) 1 ea PO QAM [facility] Stop: 01/06/19 08:59 Last Admin: 12/08/18 08:08 Dose: 1 ea Documented by: Loxapine Succinate (Loxapine) 2 ea PO QPM [facility] Stop: 01/05/19 20:59 Last Admin: 12/07/18 20:25 Dose: 2 ea Documented by: Miscellaneous (Remove Nicoderm Patch) 1 ea N/A HS [facility] Stop: 01/05/19 20:59 Last Admin: 12/07/18 20:26 Dose: 1 ea Documented by: Miscellaneous (Carbohydrates For Hypoglycemia) 15 - 30 gm PO UD PRN PRN Reason: Hypoglycemia Treatment Stop: 01/05/19 07:59 Nicotine (Nicoderm Cq) 21 mg TD QAM [facility] Stop: 01/05/19 08:59 Last Admin: 12/08/18 09:17 Dose: Not Given Documented by: Nitroglycerin (Nitrostat) 0.4 mg SL UD PRN PRN Reason: Chest Pain Stop: 01/05/19 06:06 Ondansetron HCl (Zofran) 4 mg IV Q6H PRN PRN Reason: Nausea Stop: 01/05/19 06:06 Quetiapine Fumarate (Seroquel) 100 mg PO BID [facility] Stop: 01/05/19 08:59 Last Admin: 12/08/18 08:04 Dose: 100 mg Documented by: Ziprasidone (Geodon) 10 mg IM Q4H PRN PRN Reason: agitation/aggressive behavior Stop: 01/07/19 11:29 CPT Code CPT Code 06358
--- NOTE | 2018-12-08 14:55 | Discharge Summary ---
Date of Service December 08, 2018 Admission HPI Per Admitting Provider Poonam Montenegro is a 67-year-old male admitted medically at room 12/06/2018 after presenting to the emergency department on a 302 warrant for mental health evaluation. Per ED documentation, the patient's had called 911 after the patient had reported he "would some way or another today." The patient had verbalized comments suggesting delusional thought process. He did deny homicidal and suicidal ideation, despite making these comments. Patient was admitted medically due to hyponatremia and hypokalemia and he had episodes of rather significantly elevated blood pressure. Psychiatric consultation is requested to evaluate patient for paranoia and delusions, with a long history of schizophrenia as a diagnosis. Patient is reportedly taking loxapine 10 mg every morning and 20 mg nightly as well as 100 mg of quetiapine twice daily. In the ED, patient was given 10 mg of haloperidol and 2 mg of lorazepam as he was reportedly acutely paranoid and suspicious of healthcare providers. He was reportedly combative and uncooperative. 302 petitioning statement was completed by the patient's (Aurelia Montenegro) which reads: "said he will tonight. Called me a Satan worshipper. Watched me sleep and shower. Told me S.P (?) was my life line. Won't eat. Drinks coffee and smokes cigs all day. Won't put out the trash because he is afraid it will be stolen. I got DVDs in the mail today and he thought it was a bomb. Would not let me accept phone call from library because didn't know who they were." It was reported by can help that the patient does have access to firearms in the home. See nursing note from ED psych case management social worker for accounts of statements made prior to admission. Psychiatric nurse liaison was able to gather history from the patient's , who is planning to come visit him this afternoon. As loxapine is nonformulary in our pharmacy, she is willing to bring in his prescription to ensure he continues his home medications. See psychiatric nurse liaison note for full details. In summary, reports the patient has not been sleeping well for over a month, and has been demonstrating paranoia and delusions for the past 2 months. She states he has been harassing drivers passing on the road and has been following her around their home. She states that he has been compliant with his medications, which are currently prescribed by his PCP. Patient had previously been seen by Dr. Alvarez, but followed up with his PCP after Dr. [facility] jail about 5-6 years ago. Attempts were made to see patient on multiple occasions today; however, as he w as only recently admitted and had received haloperidol and lorazepam in the emergency department, he was largely unable to cooperate with a productive interview. During first encounter, patient was unable to remain awake for a significant period of time and was unable to answer questions. A second visit later in the afternoon showed the patient was somewhat more responsive; however, he did frequently nod off to sleep and ultimately stated he was too tired to participate in evaluation at this time. Patient remains with a one-to-one sitter for the time being. Unable at this time to gather additional psychiatric history from the patient himself. Admission Exam Per Admitting Provider PHYSICAL EXAMINATION: GENERAL: The patient is somewhat drowsy, but alert and oriented. VITAL SIGNS: Temperature 36.6, pulse 71, respiratory rate 27, blood pressure 175/107, oxygen 94% room air. NECK: No JVD, no neck masses, no carotid bruits. CARDIOVASCULAR: S1, S2 heard, regular rate and rhythm, no murmur, no gallop. RESPIRATORY SYSTEM: Normal AP diameter. No accessory muscle use. No wheezing, no crackles. ABDOMEN: Soft, bowel sounds present, nontender. No distention. CENTRAL NERVOUS SYSTEM: Drowsy, but arousable, oriented x3. MUSCULOSKELETAL: Moves extremities, ambulatory in the ER room. EXTREMITIES: No edema, no erythema. Principal Diagnosis Hyponatremia Paranoid schizophrenia Hypertension Discharge Data Allergies Allergy/AdvReac Type Severity Reaction Status Date / Time Sulfa (Sulfonamide Allergy Intermediate SWELLING, Verified 12/06/18 01:30 Antibiotics) REDNESS Consultations 12/06/18 03:28 ED Decision to Admit Stat 12/06/18 06:07 Consult Case Management - Discharge Planning Routine 12/06/18 08:00 Consult Nephrology Routine Consult Psychiatry Routine Ordered Studies 12/06/18 02:37 CT head/brain wo con Urgent Hospital Course (1) Hyponatremia: (2) Paranoid schizophrenia: (3) DMII (diabetes mellitus, type 2): (4) Smoker: (5) Hypokalemia: (6) Hypertension: 67-year-old man with a history of paranoid schizophrenia and tobacco abuse presented on 302 petition from his who filed the petition because of concerning behaviors. The patient was changed smoking cigarettes and drinking lots of coffee He was admitted to the hospitalist service after sodium was found to be 121 and potassium was 2.9. He was given volume resuscitation, [facility], this overcorrected his sodium too quickly he was started on D5W with desmopressin. Nephrology was consulted. His sodium was corrected and he remained asymptomatic the entire hospitalization. Potassium was repleted without issue. During his stay he was placed on one-to-one observation and was given safety trays out of concern for suicidal ideations. Psychiatry was consulted and agreed with inpatient psychiatric placement based on the consensus that he was overtly paranoid with abnormal behavior. He declined to be committed voluntarily and the 302 was completed. He was transferred in stable condition to [facility]. Of note, on the day of discharge he became aggressive and upset because of the 302 commitment that was pending and his blood pressure george to 220/110. He had taken some but not all of his blood pressure medicines that morning, and began to refuse IV blood pressure medicine or the remaining p.o. medications. After several hours however he calmed down and agreed to take them with resulting blood pressure 167/84. This was expected to trend down and tomorrow Maxide will be restarted. A basic metabolic panel was recommended in 2 days per nephrology with results sent to the primary care doctor and a one week follow-up with the primary care doctor as outpatient. On day of discharge a [id number] examination was performed revealing a hemodynamically stable and afebrile patient who was at that time upset and agitated. Lungs were clear to auscultation, heart sounds were normal with regular rate and rhythm. No murmurs were heard. Physical exam was otherwise unremarkable. Total Time Total Time Spent Total Time Spent (In Minutes): 60 minutes Total Time Includes: Examination of the Patient, Discharge Planning, Medication Reconciliation and Communication With Other Providers Discharge Plan Discharge Items Patient Disposition: Transfer Behavioral Health Fac Reason For Visit: MENTAL HEALTH EVALUATION Discharge Diagnosis: Hyponatremia Paranoid schizophrenia Hypertension Condition: Good Discharge Goals: Improve disease control Activity: Resume your previous activity Non-emergency contact: Primary Care Provider Call non-emergency contact if: you have any medication questions, your symptoms worsen, your pain is not controlled and you have a fever Follow-up/Referrals: Roberto Clark MD [Primary Care Provider] - Ramya Armijo MD [Physician] - Diet: Heart Healthy Addtl Provider Instructions: Please take all medications as instructed on discharge list below. It is recommended that you follow-up with your primary care provider within one week of discharge from the facility. This will be to ensure that your sodium and electrolytes are remaining within normal limits and your blood pressure is under good control on current medications. It is strongly recommended that he quit smoking. We will need a basic metabolic panel on Sunday, 12/10. The results should be sent to your primary care provider and Dr. Ramya Armijo at [facility]. It was a pleasure taking care of you! Please call if you have any questions or problems. You can reach a [facility] hospitalist on duty at [facility] 24 hours a day by calling [phone]. Take care of yourself. Mariam Felipe, DO [facility] Hospitalist Prescriptions: Continued metformin 500 mg tablet 500 mg PO HS RF: 0 carvedilol 25 mg tablet 12.5 mg PO BID RF: 0 albuterol sulfate 2.5 mg /3 mL (0.083 %) Solution For Nebulization 2.5 mg INHALATION Q4 PRN (Reason: Shortness Of Breath Or Wheezing) RF: 0 quetiapine 100 mg tablet 100 mg PO BID RF: 0 triamterene-hydrochlorothiazid 37.5-25 mg capsule 1 cap PO DAILY RF: 0 loxapine succinate 10 mg capsule 10 mg PO QAM RF: 0 loxapine succinate 10 mg Capsule 20 mg PO QPM RF: 0 hydralazine 50 mg tablet 50 mg PO BID RF: 0 lisinopril 40 mg tablet 40 mg PO DAILY RF: 0 Stand-Alone Forms: [facility] Discharge Orders: Discharge Order (Routine); Ordered 12/08/18 Ordered By: Mariam Felipe Admission Data Admit Date/Time: 12/06/18 04:58 Attending Provider: Mariam Felipe Admit Provider: Alan Flores Primary Care Provider: Roberto Clark Other Providers: Alan Flores ; Emma Clement ; Jb Patel ; Abigail Jarrett I ; Demetria Santoyo ; Hannah Barrios ; Ramya Armijo ; Fadia Jolly Service: Telemetry Medical Other Interventions: Discharge Summary Assessment (RN) Last Done: 12/08/18 15:21 DC Date/Time DO NOT enter until pt leaves facility: 12/08/18 16:26
--- NOTE | 2018-12-08 16:23 | Nephrology Progress Note ---
Date of Service December 08, 2018 Assessment & Plan (1) Hyponatremia: Patient with hypoosmolar hyponatremia likely due to hypovolemia. His Na overcorrected quickly after restoring volume status. Target rate of correction is 6-8 in 24 hrs. Na today 130. Will stop iv fluids. Patient can drink and eat to correct on his own. Check Na daily. (2) Acute hypokalemia: K is 3.2. Will give kcl 40meq x1 (3) Hypertension: Above target oartly due to agitation. Increase hydralazine to 50mg tid. Continue holding maxizide. Subjective Seen this morning for hyponatremia. Na better at 130. No SOB. Patient eager to go home. Has sitter Review of Systems Review of Systems: All systems reviewed & are unremarkable except as noted in HPI & below Physical Exam Physical Exam: General exam: Appears comfortable, no acute distress HEENT: Pupils are equal and reactive to light Neck: No JVD, neck is supple trachea is midline Respiratory system: Clear breath sounds bilaterally. Gastrointestinal: Abdomen is soft, non distended, non tender, bowel sounds are present CVS: Regular rate and rhythm. No murmurs, rubs or gallops Musculoskeletal: No joint or muscle tenderness Extremities: Non tender, no edema, peripheral pulses are present Neuro: Oriented, no tremors, no focal neurological deficits Skin: No rashes Results & Data Vital Signs (Past 12 Hours) Vital Signs Temp Pulse Pulse Pulse Pulse Resp BP 12/08/18 15:26 70 12/08/18 15:21 36.7 C 72 62 67 16 167/84 H 12/08/18 14:50 36.7 C 72 16 167/84 H 12/08/18 11:27 36.3 C L 72 16 220/115 H 12/08/18 08:00 36.6 C 73 83 21 12/08/18 05:36 67 62 185/94 H 12/08/18 04:40 66 65 198/107 H BP Pulse Ox 12/08/18 15:26 12/08/18 15:21 188/115 H 92 12/08/18 14:50 92 12/08/18 11:27 95 12/08/18 08:00 188/115 H 91 12/08/18 05:36 177/94 H 12/08/18 04:40 190/108 H Laboratory Results Laboratory Results - last 24 hr 12/07/18 12/07/18 12/07/18 16:19 16:36 20:37 Sodium 129 L Potassium 3.3 L Chloride 97 L Carbon Dioxide 26 Anion Gap 6.0 BUN 9 Creatinine 0.60 Est Cr Clr Drug Dosing 102.8 Est GFR ( Amer) 119.7 Est GFR (Non-Af Amer) 103.3 BUN/Creatinine Ratio 15.2 Glucose 120 H POC Glucose 122 H 116 H Calcium 7.9 L 12/08/18 12/08/18 12/08/18 07:29 07:32 11:35 Sodium 130 L Potassium 3.2 L Chloride 95 L Carbon Dioxide 29 Anion Gap 6.0 BUN 7 Creatinine 0.67 Est Cr Clr Drug Dosing 88.7 Est GFR ( Amer) 114.4 Est GFR (Non-Af Amer) 98.7 BUN/Creatinine Ratio 9.7 L Glucose 128 H POC Glucose 127 H 115 H Calcium 8.3 L (1) Hypertension Hypertension type: unspecified Qualified Code(s): I10 - Essential (primary) hypertension
[2018-12-08] MEDS ORDERED: HydrALAZINE TAB 50 MG TAB PO SCH (16:30)
== END 2018-12-08 16:26 | DRG 641 ==
LOC: ED 00:47 → 2N 04:58

== ENCOUNTER 2018-12-08 16:26 | Inpatient (IN) ==
[2018-12-08] MEDS ORDERED: MAGNESIUM HYDROXIDE SUSP 30 ML UDC PO PRN (16:59)
[2018-12-08] MEDS ORDERED: SODIUM CHLORIDE 0.65% NA SOLN 45 ML (OCEAN) PRN (16:59)
[2018-12-08] MEDS ORDERED: ACETAMINOPHEN 325 MG TAB PO PRN (16:59)
[2018-12-08] MEDS ORDERED: BISMUTH SUBSALICYLATE PER ML OMNICELL CHARGE PO PRN (16:59)
[2018-12-08] MEDS ORDERED: ALUMINUM/MAGNESIUM SUSP 30 ML UDC PO PRN (16:59)
[2018-12-08] MEDS ORDERED: ALBUTEROL 0.083% NEBU SOLN 3 ML VIAL INH PRN (17:02)
[2018-12-08] MEDS ORDERED: cloNIDine HCl 0.1 MG TAB PO STA (17:09)
[2018-12-08] MEDS: HydrALAZINE TAB 50 MG TAB PO SCH (20:47)
[2018-12-08] MEDS: LOXAPINE SUCCINATE PO SCH (20:48)
[2018-12-08] MEDS: CARVEDILOL 12.5 MG TAB PO SCH (20:48)
[2018-12-08] MEDS: QUETIAPINE FUMARATE 100 MG TABLET PO SCH (20:49)
[2018-12-08] MEDS: METFORMIN HCL 500 MG TAB PO SCH (20:49)
[2018-12-09] MEDS ORDERED: cloNIDine HCl 0.1 MG TAB PO ONE (04:38)
[2018-12-09] MEDS: HydrALAZINE TAB 50 MG TAB PO SCH ×2 (07:46→21:15)
[2018-12-09] MEDS: TRIAMTERENE/HCTZ 37.5/25MG CAP PO SCH (07:47)
[2018-12-09] MEDS: CARVEDILOL 12.5 MG TAB PO SCH ×2 (07:47→21:15)
[2018-12-09] MEDS: LOXAPINE SUCCINATE PO SCH ×2 (07:48→21:16)
[2018-12-09] MEDS: LISINOPRIL 40 MG TAB PO SCH (07:49)
[2018-12-09] MEDS: QUETIAPINE FUMARATE 100 MG TABLET PO SCH (07:49)
--- NOTE | 2018-12-09 07:59 | History & Physical ---
Date of Service December 09, 2018 Impression / Recommendations Impression 68-year-old male with long-standing paranoid schizophrenia, tardive dyskinesia, and a history of alcohol use disorder who is managed by his PCP, on Seroquel of Loxitane for many years. He has been increasingly paranoid and delusional over the past 1-2 months, not sleeping or eating well, and his is fearful as he has been acting on his delusional thoughts that somebody is going to kill he and his . His mental status changes were likely exacerbated by medical problems, including poor p.o. intake and electrolyte disarray, which is now improving. His blood pressure was also very poorly controlled and we will need to continue to adjust medications for that here. We will need to involve his in treatment, determine his access to weapons and ensure that these are removed or secured prior to discharge, and refer him for outpatient mental health services, as currently he does not have a psychiatrist, therapist, or casework manager. He is admitted involuntarily, and inpatient treatment is the least restrictive appropriate venue for care at this time. (1) Paranoid schizophrenia: 12/09 -patient remains paranoid and delusional, believes thoughts are being inserted into his mind. Continue loxapine 10 mg every morning and 20 mg every afternoon, quetiapine 100 every morning, and increase the bedtime dose to 200 mg to target psychosis and sleep. -Fasting labs for monitoring on an atypical antipsychotic: Hemoglobin A1c 6.4, and fasting lipid profile within normal limits. EKG on initial presentation - QTC 478; repeated today and QTC is 456. -Encourage attendance and participation in groups and therapy. Work on healthy coping skills and a discharge safety plan. -Recommended referral for outpatient mental health treatment with a psychiatris t, therapist, and casework manager. Coordinate care with PCP. Present on Admission?: Yes (2) Hypertension: 12/09 -blood pressure has been poorly controlled. Discussed with hospitalist yesterday, who indicated that his Maxzide was held on their service due to hyponatremia, but can now be resumed. Also suggested use of clonidine 0.1 mg (which he received overnight) or hydralazine 25 mg 3 times daily as needed for hypertension. We will monitor vital signs every shift. -We will leave follow-up with PCP after discharge for ongoing monitoring. Present on Admission?: Yes (3) Hyponatremia: 12/09 - Sodium was 121 on admission 12/06/2018, and as of this morning is 133. Hypokalemia has also improved and is 3.4 this morning (was 2.9 on admission). -Encourage good nutrition and monitor p.o. intake. Present on Admission?: Yes (4) DMII (diabetes mellitus, type 2): 12/09 -continue home dose of metformin and check blood sugar daily. Diabetic diet. Present on Admission?: Yes (5) Altered mental status: 12/09 - Mental status on presentation exacerbated by electrolyte disarray, which has now improved. Altered mental status type: unspecified Qualified Code(s): R41.82 - Altered mental status, unspecified Present on Admission?: Yes Inventory Assets Strengths: Stable housing, supportive , good compliance with treatment Needs: Outpatient mental health services, address medical issues Risk Factors Assessment Male: Yes : Yes Do You Have Access To A Gun?: Yes (Patient has alluded to having guns, but will not answer the question directly. ER records indicate he has multiple guns.) Health Problems: Yes Mental Health Diagnoses: Yes Substance Use Disorders: No Previous Attempt: No Family History of Suicide: No Previous Psychiatric Hospitalization: Yes Hopelessness: No Smoker: Yes Protective Factors Assessment : Yes Responsible for Young Children: No Employed: No Stable Relationships: No Supportive Family: Yes Good Rapport with Provider: No (No outpatient mental health providers) Psychiatric History Identifying Data WILBERTO MANNING is a 68-year-old M who currently lives in [place] with his , has a history of schizophrenia, and was admitted on 12/08/18 16:26 on a 302 involuntary commitment for paranoia and agitation. He initially presented to the ER 12/06/2018 on a 302 warrant, but was found to be hyponatremic with a sodium of 121, hypokalemic, and hypertensive, so was initially admitted to the hospitalist service for several days. Chief Complaint "I've just come to tell somebody something, water is life. What grows without water?" History of Present Illness Patient initially presented 12/06/2018 via EMS and state police on a 302 warrant for mental health evaluation after his had called 911 because the patient had reported he "would some way or another today." The petition states he called her a Satan muslim her, was watching her sleep and shower, and told her that SP (?) Was her lifeline. He was not eating, and was drinking coffee and smoking cigarettes all day. In the ER, he said that someone was telepathically putting thoughts into his brain, and feared someone was going to harm him and his . He received haloperidol 10 mg and lorazepam 2 mg due to paranoia and suspiciousness in the ER. He was admitted medically due to hyponatremia, hypokalemia, and significantly elevated blood pressure. He was seen by the psychiatric consult service, reported a long history of schizophrenia, currently treated by his PCP who prescribes loxapine 10 mg every morning and 20 mg nightly and 100 mg of quetiapine twice daily. His was contacted and reported he had been decompensating for the past 2 months, was not sleeping well, was increasingly paranoid and delusional. He had been harassing drivers passing on the road and following his around, was paranoid and telling his she needed to check the boundaries of their property to make sure no one could get it. She did not feel safe with him at home, and it was unclear if they had weapons, as at times he reported having guns and knives, but other times refused to answer saying "it's none of your business." He was seen daily for 3 days and continued to endorse paranoia and delusions, but was unwilling for inpatient treatment, wanting to go home. At the time of medical stabilization yesterday, the patient continued to refuse inpatient psychiatric treatment, so was admitted involuntarily. On my assessment today, the patient reports inability to sleep last night, which has been going on for an unclear amount of time, stating he does not feel tired when he lies down and is up most of the night. He states his schedule frequently switches to where he is awake all night and sleeps during the day, but recently he has not been able to sleep at all. He denies any exacerbating factors, and has not tried sleep medication. He is willing to increase his Seroquel and try hydroxyzine if that is insufficient for sleep. He reports appetite has improved and he has been eating well in the hospital. He says mood is "I could any time, but I try to keep moving. Under the circumstances, I am trying to remain positive." When asked why he thinks he could at any moment, he says "what I just said, water is life." He endorses concerns about his "physical side of things," saying he thinks he has been diagnosed with multiple medical conditions, but is unable to clarify what they are. He does know that he has had high blood pressure and electrolyte abnormalities, and reviewed his treatment for these things thus far as well as improvement. He says "who doesn't" when asked if he has any concerns about his safety at home. He indicates believes that someone is causing his medical problems by an unknown mechanism and is targeting him and trying to hurt him, although he does not know who would be doing this or why. He also reports concerns that unknown persons are trying or have tried to come on his property, and is very focused on perceived infringement on his rights by the government. He refuses to answer questions regarding whether he processed his guns, stating he knows that the federal and state government are getting that information and using it to enact strict gun control laws. He then says there is a federal law that prevents me from asking about guns. He is aware that because of his involuntary commitment he cannot own, purchase, or possess firearms in [place]. Although he denies current mood symptoms, he reports chronic irritability and states he is known as a fnmldhgua-ln-kff-along-with person. He is willing to have a meeting with his , and was informed one has been scheduled for tomorrow. Past Psychiatric History Previous Psych History: Paranoid schizophrenia and tardive dyskinesia History of alcohol use disorder Current Psychiatric Diagnosis: paranoid schizophrenia Outpatient Services: No psychiatrist, casework manager, or therapist. Medications are prescribed by his PCP, Dr. Downs. Previously saw Dr. Matt, but did not get a new psychiatrist after he retired. Previous Psych Admissions: Multiple, including state hospitalization. At least 4 to this facility, most recently in 2008, after he loaded a high-powered rifle thinking that government agents were coming to get him and his . [facility] access hospital [facility] Do You Have Access To A Gun?: Yes (Patient has alluded to having guns, but will not answer the question directly. ER records indicate he has multiple guns.) History of Previous Suicide Attempt: No Past Medication Trials: Has been on a combination of quetiapine and Loxitane for many years Other medications include but are not limited to: Risperidone -2005 Allergies Allergy/AdvReac Type Severity Reaction Status Date / Time Sulfa (Sulfonamide Allergy Intermediate SWELLING, Verified 12/06/18 01:30 Antibiotics) REDNESS Home Medications Home Medications Medication Instructions Recorded Confirmed Type albuterol sulfate 2.5 mg INHALATION Q4 PRN 12/06/18 12/06/18 History carvedilol 12.5 mg PO BID 12/06/18 12/06/18 History hydralazine 50 mg PO BID 12/06/18 12/06/18 History lisinopril 40 mg PO DAILY 12/06/18 12/06/18 History loxapine succinate 10 mg PO QAM 12/06/18 12/06/18 History loxapine succinate 20 mg PO QPM 12/06/18 12/06/18 History metformin 500 mg PO HS 12/06/18 12/06/18 History quetiapine 100 mg PO BID 12/06/18 12/06/18 History triamterene-hydrochlorothiazid 1 cap PO DAILY 12/06/18 12/06/18 History Family History Family History of: Alcoholism/Drug Abuse (Siblings) Alcohol History Hx of Alcohol Use Over the Past 12 Months: Yes (1 to 2 drinks monthly or less) AUDIT Total Score: 1 Smoking Use Have You Smoked or Used Tobacco Products in the Last 30 Days: Yes tobacco type: cigarettes Smoking Status: Current every day smoker Smoking packs per day: 1 Substance History Hx of Prescription Med Misuse Over the Past 12 Months: No Hx of Over the Counter Med Misuse Over the Past 12 Months: No Hx of Inhalent Misuse Over the Past 12 Months: No Problems as a Result of Past Substance Use: None Identified History of alcohol abuse in the remote past. Personal History Living Arrangements Comments: With his in [place] Childhood: Grew up locally, and attended [employer]. 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 He also reports he was in the [employer] briefly, but will not give further information.) Marital Status: (Met his in mental health treatment, as she also has schizophrenia) Beliefs That Will Affect Care: None Current Legal Problems: No Legal Problems Comment: Patient states he has an upcoming court case regarding the [place] Patient History Social History Preferred Language: Gibraltarian Communication Ability: Effective Sock Lining Stitcher Required: No Beliefs That Will Affect Care: None marital status: Life Partner Current Living Situation: Spouse Feels Safe at Home: Yes Smoking Status: Current every day smoker Tobacco Type: cigarettes ; Hx Alcohol Use: Yes Alcohol type: beer Hx Substance Use: Yes substance use type: marijuana Review of Systems Review of Systems: All systems reviewed & are unremarkable except as noted in HPI & below Physical Exam Psychiatric: Orientation: alert, oriented x 3 and cooperative (Partially - refuses to answer certain questions, and some answers are disorganized or nonsensical) Apperance: appropriately dressed, appropriately groomed and appeared stated age Eye Contact: good eye contact Motor Behavior: steady gait and station Continuous hand and mouth/tongue movements Speech: normal rate/rhythm/volume of speech Euthymic affect with periods of suspiciousness and mild irritability "I could at any time, but I try to keep moving." Thought Process: + tangential thought process and + looseness of associations; + thought process not clear or coherent Thought Content: + paranoid, + delusions, + thought insertion and + persecution Suicidal Thoughts: denies suicidal thoughts But reports that he and his are in danger from unknown others. Homicidal Thoughts: denies homicidal thoughts Hallucinations: no auditory hallucinations and no visual hallucinations Cognition: recent memory grossly intact (Limited historian) and language grossly intact; + attention not intact (Frequently answers with unrelated information) Estimated Intelligence: consistent with education level Insight: + impaired insight Judgement: + impaired judgement Vital Signs (Past 24 Hours): Last Vital Signs Temp 37.3 C 12/09/18 06:00 Pulse 79 12/09/18 06:39 Resp 18 12/09/18 06:00 BP 163/88 H 12/09/18 06:39 Exam Statement: A physical exam was performed on the medical floor prior to admission to the unit by Dr. Felipe. I accept that physical as correct/medical clearance for the inpatient physical exam. Results & Data Laboratory Results Laboratory Results - last 24 hr 12/08/18 12/09/18 21:59 07:10 POC Glucose 120 H Triglycerides Pending Cholesterol Pending LDL Cholesterol, Calc Pending VLDL Cholesterol, Calc Pending HDL Cholesterol Pending Cholesterol/HDL Ratio Pending Current Inpatient Medications Current Inpatient Medications: Current Inpatient Medications Acetaminophen (Tylenol) 650 mg PO Q4H PRN PRN Reason: Headache or Minor Fever Stop: 01/07/19 16:58 Al Hydrox/Mg Hydrox/Simethicone (Maalox) 30 ml PO Q4H PRN PRN Reason: GI Upset Stop: 01/07/19 16:58 Albuterol (Ventolin 0.083% 2.5mg/3ml) 2.5 mg INH Q4 PRN PRN Reason: Shortness Of Breath Or Wheezing Stop: 01/07/19 17:01 Bismuth Subsalicylate (Kaopectate) 15 ml PO PRN PRN PRN Reason: Loose Stool Stop: 01/07/19 16:58 Carvedilol (Coreg) 12.5 mg PO BID [facility] Stop: 01/07/19 20:59 Last Admin: 12/09/18 07:47 Dose: 12.5 mg Documented by: Hydralazine HCl (Apresoline) 50 mg PO BID NATALYA Stop: 01/07/19 20:59 Last Admin: 12/09/18 07:46 Dose: 50 mg Documented by: Hydralazine HCl (Apresoline) 25 mg PO TID PRN PRN Reason: hypertension Stop: 01/08/19 08:59 Hydroxyzine HCl (Vistaril) 25 mg PO Q4H PRN PRN Reason: Anxiety Stop: 01/07/19 16:58 Hydroxyzine HCl (Vistaril) 50 mg PO HSZ PRN PRN Reason: Insomnia Stop: 01/07/19 16:58 Lisinopril (Zestril) 40 mg PO DAILY [facility] Stop: 01/08/19 08:59 Last Admin: 12/09/18 07:49 Dose: 40 mg Documented by: Loxapine Succinate (Loxapine) 1 ea PO QAM NATALYA Stop: 01/08/19 08:59 Last Admin: 12/09/18 07:48 Dose: 1 ea Documented by: Loxapine Succinate (Loxapine) 2 ea PO QPM NATALYA Stop: 01/07/19 20:59 Last Admin: 12/08/18 20:48 Dose: 2 ea Documented by: Magnesium Hydroxide (Milk Of Magnesia) 30 ml PO DAILY PRN PRN Reason: Heartburn Stop: 01/07/19 16:58 Metformin HCl (Glucophage) 500 mg PO HS NATALYA Stop: 01/07/19 21:59 Last Admin: 12/08/18 20:49 Dose: 500 mg Documented by: Quetiapine Fumarate (Seroquel) 100 mg PO BID NATALYA Stop: 01/07/19 20:59 Last Admin: 12/09/18 07:49 Dose: 100 mg Documented by: Sodium Chloride ([place] Nasal) 1 - 2 sprays NA PRN PRN PRN Reason: Nasal Dryness/Congestion Stop: 01/07/19 16:58 Triamterene/HCTZ (Dyazide 37.5/25mg) 1 cap PO DAILY NATALYA Stop: 01/08/19 08:59 Last Admin: 12/09/18 07:47 Dose: 1 cap Documented by: CPT Code CPT Code Initial Hospital Care: [id number]
[2018-12-09 08:03] LABS: Chol HDL Ratio 3; Cholesterol 142 mg/dl (0-200); HDL Cholesterol 48 mg/dl; LDL Cholesterol Calculated 81 mg/dl; Triglycerides 66 mg/dl (0-150); VLDL Cholesterol 13 mg/dl
[2018-12-09 09:16] LABS: BUN Creatinine Ratio 15.6 (10-20); Calcium 9.2 mg/dl (8.5-10.1); Creatinine Clr Calc Pharmacy 77.1 ml/min; Est GFR (African American) 108.7; Est GFR (Non-African American) 93.7; Potassium 3.4 mmol/L (3.5-5.1)
[2018-12-09] MEDS: METFORMIN HCL 500 MG TAB PO SCH (21:16)
[2018-12-09] MEDS: QUETIAPINE FUMARATE 200 MG TAB PO SCH (21:16)
[2018-12-10] MEDS: CARVEDILOL 12.5 MG TAB PO SCH ×2 (07:28→21:06)
[2018-12-10] MEDS: QUETIAPINE FUMARATE 100 MG TABLET PO SCH (07:28)
[2018-12-10] MEDS: HydrALAZINE TAB 50 MG TAB PO SCH ×2 (07:28→21:06)
[2018-12-10] MEDS: LISINOPRIL 40 MG TAB PO SCH (07:28)
[2018-12-10] MEDS: TRIAMTERENE/HCTZ 37.5/25MG CAP PO SCH (07:28)
[2018-12-10] MEDS: LOXAPINE SUCCINATE PO SCH ×2 (07:29→21:06)
--- NOTE | 2018-12-10 13:12 | Psychiatric Progress Note ---
Date of Service December 10, 2018 Impression / Recommendations Impression 68-year-old male with long-standing paranoid schizophrenia, tardive dyskinesia, and a history of alcohol use disorder who is managed by his PCP, on Seroquel of Loxitane for many years. He has been increasingly paranoid and delusional over the past 1-2 months, not sleeping or eating well, and his is fearful as he has been acting on his delusional thoughts that somebody is going to kill he and his . His mental status changes were likely exacerbated by medical problems, including poor p.o. intake and electrolyte disarray, which is now improving. His blood pressure was also very poorly controlled and we will need to continue to adjust medications for that here. Family meeting was held involving . Will need to ensure guns are removed or secured prior to discharge, and refer him for outpatient mental health services, as currently he does not have a psychiatrist, therapist, or telehealth case manager. He is admitted involuntarily, and inpatient treatment is the least restrictive appropriate venue for care at this time. (1) Paranoid schizophrenia: 12/09 -patient remains paranoid and delusional, believes thoughts are being inserted into his mind. Continue loxapine 10 mg every morning and 20 mg every afternoon, quetiapine 100 every morning, and increase the bedtime dose to 200 mg to target psychosis and sleep. -Fasting labs for monitoring on an atypical antipsychotic: Hemoglobin A1c 6.4, and fasting lipid profile within normal limits. EKG on initial presentation - QTC 478; repeated today and QTC is 456. -Encourage attendance and participation in groups and therapy. Work on healthy coping skills and a discharge safety plan. -Recommended referral for outpatient mental health treatment with a psychiatrist, therapist, and telehealth case manager. Coordinate care with PCP. 12/10 - Continue current medication regimen as above - consider need for further titration of quetiapine/loxapine to target disorganization and paranoia - seems to be mildly improved today - Family meeting held with today - Continue arrangement of outpatient psychiatrist, therapist, and telehealth case manager (2) Hypertension: 12/09 -blood pressure has been poorly controlled. Discussed with hospitalist yesterday, who indicated that his Maxzide was held on their service due to hyponatremia, but can now be resumed. Also suggested use of clonidine 0.1 mg (which he received overnight) or hydralazine 25 mg 3 times daily as needed for hypertension. We will monitor vital signs every shift. -We will leave follow-up with PCP after discharge for ongoing monitoring. 12/10 - Parameters provided to prn dosing of hydralazine - will utilize for SBP > 160 and/or DBP > 100 - Continue to monitor vital signs every shift (3) Hyponatremia: 12/09 - Sodium was 121 on admission 12/06/2018, and as of this morning is 133. Hypokalemia has also improved and is 3.4 this morning (was 2.9 on admissi on). -Encourage good nutrition and monitor p.o. intake. (4) DMII (diabetes mellitus, type 2): 12/09 -continue home dose of metformin and check blood sugar daily. Diabetic diet. (5) Altered mental status: 12/09 - Mental status on presentation exacerbated by electrolyte disarray, which has now improved. Inventory Assets Strengths: Stable housing, supportive , good compliance with treatment Needs: Outpatient mental health services, address medical issues Risk Factors Assessment Male: Yes : Yes Do You Have Access To A Gun?: Yes (Patient has alluded to having guns, but will not answer the question directly. ER records indicate he has multiple guns.) Health Problems: Yes Mental Health Diagnoses: Yes Substance Use Disorders: No Previous Attempt: No Family History of Suicide: No Previous Psychiatric Hospitalization: Yes Hopelessness: No Smoker: Yes Protective Factors Assessment : Yes Responsible for Young Children: No Employed: No Stable Relationships: No Supportive Family: Yes Good Rapport with Provider: No (No outpatient mental health providers) Interval History Identifying Information WILBERTO MANNING is a 68-year-old M who currently lives in [place] with his , has a history of schizophrenia, and was admitted on 12/08/18 16:26 on a 302 involuntary commitment for paranoia and agitation. He initially presented to the ER 12/06/2018 on a 302 warrant, but was found to be hyponatremic with a sodium of 121, hypokalemic, and hypertensive, so was initially admitted to the hospitalist service for several days. Chief Complaint "You know, it's really not easy to get anything done around here." Review of Systems Notes Constitutional: denied Cardiovascular: denied Respiratory: denied Gastrointestinal: denied Neurological: denied Psychiatric: denies symptoms other than stated above Total of at least 10 systems reviewed, pertinent positives as above and in HPI. Sleep Information Total Hours of Sleep: 2.75 Meal Information Percent Meal Consumed - Breakfast: 100 Percent Meal Consumed - Lunch: 100 Percent Meal Consumed - Dinner: 100 Subjective Subjective Patient was seen & assessed and interval progress reviewed with nursing and social work. Staff report the patient has a family meeting schedule with his today - with need to confirm firearms are secured. Pt had described himself as "optimistic and positive" last evening. Pt was seen today to assess progress since admission. Pt states he is somewhat frustrated today, as he feels it is "not easy to get anything done around here." Pt goes on to complain about the "rules and regulations" of the unit, and the "sensors monitoring everything." Patient was asked to clarify these concerns. He predominantly talks about his "disappearing clothes", having the have the doors unlocked to complete laundry, and the "sensors controlling the amount of water you can use" (likely referring to the motion activation sensors on the sinks of the hospital). Pt was asked if he believed these "regulations" were particular to him, which he denied by saying "I'm sure some people need them, but I certainly don't." Pt continues to make it known that he disagrees with his diagnosis of "paranoid schizophrenia", continuing to justify his "paranoia" by stating "it's just usual suspicions, nothing funny like that." Pt is requesting to know his length of stay today, and makes several comments regarding - "your information is based on the past 40 years, but nothing recent. I don't have paranoid schizophrenia." Pt was asked how his meeting with his went, to which he responds - "you'll have to ask her I guess." Pt denies SI/HI today. He denies other acute concerns, but does inquire about management of his elevated blood pressure. Physical Exam Psychiatric Orientation: alert, oriented to person, cooperative (superficially) and + guarded Apperance: appropriately dressed, + disheveled and appeared stated age Eye Contact: good eye contact Motor Behavior: steady gait and station Ongoing continuous movements of mount/tongue - as if chewing gum; writhing of left hand is observed, frequent tapping of feet Speech: normal rate/rhythm/volume of speech (mildly irritable tone at times) Affect: euthymic affect and + irritable affect (intermittent moments of irritability and suspicious affect) Mood: no depressed mood and no anxious mood "I'm fine, I could go home. I am frustrated with things here." Thought Process: + circumstantial thought process and + looseness of associations; + thought process not clear or coherent Thought Content: + paranoid, + delusions and + persecution Suicidal Thoughts: denies suicidal thoughts Homicidal Thoughts: denies homicidal thoughts Hallucinations: no auditory hallucinations and no visual hallucinations Cognition: language grossly intact; + attention not intact Estimated Intelligence: consistent with education level Insight: + impaired insight Judgement: + impaired judgement Vital Signs (Past 24 Hours) Last Vital Signs Temp 36.8 C 12/10/18 06:00 Pulse 82 12/10/18 08:33 Resp 18 12/10/18 06:00 BP 143/88 H 12/10/18 08:33 Results & Data Laboratory Results Laboratory Results - last 24 hr 12/10/18 07:21 POC Glucose 115 H Current Inpatient Medications Current Inpatient Medications: Current Inpatient Medications Acetaminophen (Tylenol) 650 mg PO Q4H PRN PRN Reason: Headache or Minor Fever Stop: 01/07/19 16:58 Al Hydrox/Mg Hydrox/Simethicone (Maalox) 30 ml PO Q4H PRN PRN Reason: GI Upset Stop: 01/07/19 16:58 Albuterol (Ventolin 0.083% 2.5mg/3ml) 2.5 mg INH Q4 PRN PRN Reason: Shortness Of Breath Or Wheezing Stop: 01/07/19 17:01 Bismuth Subsalicylate (Kaopectate) 15 ml PO PRN PRN PRN Reason: Loose Stool Stop: 01/07/19 16:58 Carvedilol (Coreg) 12.5 mg PO BID NATALYA Stop: 01/07/19 20:59 Last Admin: 12/10/18 07:28 Dose: 12.5 mg Documented by: Hydralazine HCl (Apresoline) 50 mg PO BID NATALYA Stop: 01/07/19 20:59 Last Admin: 12/10/18 07:28 Dose: 50 mg Documented by: Hydralazine HCl (Apresoline) 25 mg PO TID PRN PRN Reason: hypertension Stop: 01/08/19 08:59 Last Admin: 12/10/18 06:26 Dose: 25 mg Documented by: Hydroxyzine HCl (Vistaril) 25 mg PO Q4H PRN PRN Reason: Anxiety Stop: 01/07/19 16:58 Hydroxyzine HCl (Vistaril) 50 mg PO HSZ PRN PRN Reason: Insomnia Stop: 01/07/19 16:58 Lisinopril (Zestril) 40 mg PO DAILY NATALYA Stop: 01/08/19 08:59 Last Admin: 12/10/18 07:28 Dose: 40 mg Documented by: Loxapine Succinate (Loxapine) 1 ea PO QAM NATALYA Stop: 01/08/19 08:59 Last Admin: 12/10/18 07:29 Dose: 1 ea Documented by: Loxapine Succinate (Loxapine) 2 ea PO QPM NATALYA Stop: 01/07/19 20:59 Last Admin: 12/09/18 21:16 Dose: 2 ea Documented by: Magnesium Hydroxide (Milk Of Magnesia) 30 ml PO DAILY PRN PRN Reason: Heartburn Stop: 01/07/19 16:58 Metformin HCl (Glucophage) 500 mg PO HS NATALYA Stop: 01/07/19 21:59 Last Admin: 12/09/18 21:16 Dose: 500 mg Documented by: Quetiapine Fumarate (Seroquel) 200 mg PO HS NATALYA Stop: 01/08/19 21:59 Last Admin: 12/09/18 21:16 Dose: 200 mg Documented by: Quetiapine Fumarate (Seroquel) 100 mg PO DAILY [facility] Stop: 01/09/19 08:59 Last Admin: 12/10/18 07:28 Dose: 100 mg Documented by: Sodium Chloride ([place]ett Nasal) 1 - 2 sprays NA PRN PRN PRN Reason: Nasal Dryness/Congestion Stop: 01/07/19 16:58 Triamterene/HCTZ (Dyazide 37.5/25mg) 1 cap PO DAILY NATALYA Stop: 01/08/19 08:59 Last Admin: 12/10/18 07:28 Dose: 1 cap Documented by: Mental Health & Subst Abuse Tx Therapist Name of Therapist: none Apparel Machinery Instructor Name of Apparel Machinery Instructor: none, Post Discharge Appointments Primary Care Physician Name Of Family Doctor: Dr. Clark CPT Code CPT Code 64471 (1) Altered mental status Altered mental status type: unspecified Qualified Code(s): R41.82 - Altered mental status, unspecified
[2018-12-10] MEDS: METFORMIN HCL 500 MG TAB PO SCH (21:06)
[2018-12-10] MEDS: QUETIAPINE FUMARATE 200 MG TAB PO SCH (21:07)
[2018-12-11] MEDS: HydrALAZINE TAB 50 MG TAB PO SCH ×2 (08:17→20:53)
[2018-12-11] MEDS: TRIAMTERENE/HCTZ 37.5/25MG CAP PO SCH (08:18)
[2018-12-11] MEDS: CARVEDILOL 12.5 MG TAB PO SCH ×2 (08:18→20:54)
[2018-12-11] MEDS: LOXAPINE SUCCINATE PO SCH ×2 (08:18→20:55)
[2018-12-11] MEDS: QUETIAPINE FUMARATE 100 MG TABLET PO SCH (08:18)
[2018-12-11] MEDS: LISINOPRIL 40 MG TAB PO SCH (08:18)
--- NOTE | 2018-12-11 13:00 | Psychiatric Progress Note ---
Date of Service December 11, 2018 Impression / Recommendations Impression 68-year-old male with long-standing paranoid schizophrenia, tardive dyskinesia, and a history of alcohol use disorder who is managed by his PCP, on Seroquel of Loxitane for many years. He has been increasingly paranoid and delusional over the past 1-2 months, not sleeping or eating well, and his is fearful as he has been acting on his delusional thoughts that somebody is going to kill he and his . His mental status changes were likely exacerbated by medical problems, including poor p.o. intake and electrolyte disarray, which is now improving. His blood pressure was also very poorly controlled and he will need outpatient follow-up for that. Family meeting was held with his yesterday, who stated he was not yet at baseline. After staff spoke with his PCPs office, he is now agreeing to referral for outpatient psychiatric care. He is admitted involuntarily, and inpatient treatment is the least restrictive appropriate venue for care at this time, although he continues to improve he will likely be able to be discharged at the end of his involuntary commitment. (1) Paranoid schizophrenia: 12/09 -patient remains paranoid and delusional, believes thoughts are being inserted into his mind. Continue loxapine 10 mg every morning and 20 mg every afternoon, quetiapine 100 every morning, and increase the bedtime dose to 200 mg to target psychosis and sleep. -Fasting labs for monitoring on an atypical antipsychotic: Hemoglobin A1c 6.4, and fasting lipid profile within normal limits. EKG on initial presentation - QTC 478; repeated today and QTC is 456. -Encourage attendance and participation in groups and therapy. Work on healthy coping skills and a discharge safety plan. -Recommended referral for outpatient mental health treatment with a psychiatrist, therapist, and manager of case. Coordinate care with PCP. 12/10 - Continue current medication regimen as above - consider need for further titration of quetiapine/loxapine to target disorganization and paranoia - seems to be mildly improved today - Family meeting held with today - Continue arrangement of outpatient psychiatrist, therapist, and manager of case 12/11 -continue current medications; sleep improving on higher dose of quetiapine. - confirmed that firearms are removed from the home and patient will have access to them. Patient is aware that due to his involuntary commitment he cannot legally own, purchase, or possess firearms. -Refer for outpatient psychiatric care (PCP was contacted and indicated he recommends the patient see a psychiatrist in the longer wishes to manage his psychotropic medication). (2) Tardive dyskinesia: 12/11 -patient scored a 4 on the AIMS. If abnormal involuntary movements become impairing, consider trial of valbenazine or tetrabenazine. Present on Admission?: Yes (3) Hypertension: 12/09 -blood pressure has been poorly controlled. Discussed with hospitalist yesterday, who indicated that his Maxzide was held on their service due to hyponatremia, but can now be resumed. Also suggested use of clonidine 0.1 mg (which he received overnight) or hydralazine 25 mg 3 times daily as needed for hypertension. We will monitor vital signs every shift. -We will leave follow-up with PCP after discharge for ongoing monitoring. 12/10- Parameters provided to prn dosing of hydralazine - will utilize for SBP > 160 and/or DBP > 100 - Continue to monitor vital signs every shift 12/11 -patient remains intermittently hypertensive; will arrange outpatient follow-up with his PCP. (4) Hyponatremia: 12/09 - Sodium was 121 on admission 12/06/2018, and as of this morning is 133. Hypokalemia has also improved and is 3.4 this morning (was 2.9 on admission). -Encourage good nutrition and monitor p.o. intake. (5) DMII (diabetes mellitus, type 2): 12/09 -continue home dose of metformin and check blood sugar daily. Diabetic diet. (6) Altered mental status: 12/09 - Mental status on presentation exacerbated by electrolyte disarray, which has now improved. Inventory Assets Strengths: Stable housing, supportive , good compliance with treatment Needs: Outpatient mental health services, address medical issues Risk Factors Assessment Male: Yes : Yes Do You Have Access To A Gun?: Yes (Patient has alluded to having guns, but will not answer the question directly. ER records indicate he has multiple guns.) Health Problems: Yes Mental Health Diagnoses: Yes Substance Use Disorders: No Previous Attempt: No Family History of Suicide: No Previous Psychiatric Hospitalization: Yes Hopelessness: No Smoker: Yes Protective Factors Assessment : Yes Responsible for Young Children: No Employed: No Stable Relationships: No Supportive Family: Yes Good Rapport with Provider: No (No outpatient mental health providers) Interval History Identifying Information WILBERTO MANNING is a 68-year-old M who currently lives in [place] with his , has a history of schizophrenia, and was admitted on 12/08/18 16:26 on a 302 involuntary commitment for paranoia and agitation. He initially presented to the ER 12/06/2018 on a 302 warrant, but was found to be hyponatremic with a sodium of 121, hypokalemic, and hypertensive, so was initially admitted to the hospitalist service for several days. Chief Complaint "When I wrote to you, I didn't have any reading glasses, don't know how it looked". Review of Systems Notes Denies restlessness, oversedation, stiffness Sleep Information Total Hours of Sleep: 6.75 Meal Information Percent Meal Consumed - Breakfast: 100 Percent Meal Consumed - Lunch: 100 Percent Meal Consumed - Dinner: 90 Subjective Subjective Patient was seen & assessed and interval progress reviewed with treatment team. Staff report he had a meeting with his yesterday, during which she stated he was improved but still paranoid and not at baseline. She reported recent increase in their conflicts and arguments at home as his paranoia had worsened, and that he was suspicious of a nearby [place], people driving down the road, and surveillance from the public utilities commission. He has been very focused on a smart meter the [employer] wants to install, and fears about how it will be used. They reported that although they bicker a lot, they love each other. His confirmed that the guns were removed from the home and said she had no intention of letting the patient know where they were, which upset the patient. She also discussed her own mental health issues, and said that she has been more stable recently than she has in years. The patient would not commit to seeing an outpatient psychiatrist, unless his PCP recommended it. He further stated that he felt ready to leave, and had no intention of signing in voluntarily. His PCP was then contacted and stated that he recommended the patient see an outpatient psychiatrist and was no longer willing to manage his psychotropic medications. The patient then said he would agree to an outpatient referral. On my assessment, he is quite conversant, wanting to explain the reasoning behind his concerns about the smart meter. He talks knowledgeably about the [employer] and his concerns that the smart meter collects lots of excessive information, is in invasion into his privacy, is an unjustified expense, and could cause health issues based on the frequencies of the wireless communications. He says he already had a preliminary hearing, and has a formal hearing in early December we will he will argue his case. He is hopeful that he will be allowed to keep the old, analog meter for his electricity. He says that the meeting with his was "wonderful," and describes her as "a rock," and "an cristina of mercy." He admits that he was not thinking clearly prior to presentation, and that he was fearing for his safety and thought he might , but is guarded when asked to explain this further, and repeatedly changed the topic. He reports good mood, denies significant anxiety, and denies acute safety concerns, but does express concerns that his privacy is being invaded and that various societal and government forces may not have his best interests at heart. He is sleeping a little better, but still suboptimal. Physical Exam Psychiatric Calm, pleasant, conversant. Orientation: alert and cooperative Apperance: appropriately dressed and appropriately groomed Thin, tanned, appears older than stated age. Eye Contact: good eye contact Consistent mouth and tongue movements; see AIMS below Speech: normal rate/rhythm/volume of speech Affect: euthymic affect and mood congruent with affect Appropriate "Pretty good" Thought Process: goal directed thought process Avoids certain topics, specifically his thinking/symptoms prior to hospitalization, 's concerns about his paranoia Thought Content: + paranoid Suicidal Thoughts: denies suicidal thoughts Homicidal Thoughts: denies homicidal thoughts Hallucinations: no auditory hallucinations and no visual hallucinations Cognition: recent memory grossly intact, remote memory grossly intact, attention grossly intact and language grossly intact Insight: + fair insight Judgement: + fair judgement AIMS: 4 (mild mouth movements, aware but no distress, overall severity mild, no incapacitation) Vital Signs (Past 24 Hours) Last Vital Signs Temp 36.7 C 12/11/18 06:00 Pulse 76 12/11/18 08:03 Resp 18 12/11/18 06:00 BP 149/88 H 12/11/18 08:03 Results & Data Laboratory Results Laboratory Results - last 24 hr 12/11/18 07:24 POC Glucose 142 H Current Inpatient Medications Current Inpatient Medications: Current Inpatient Medications Acetaminophen (Tylenol) 650 mg PO Q4H PRN PRN Reason: Headache or Minor Fever Stop: 01/07/19 16:58 Al Hydrox/Mg Hydrox/Simethicone (Maalox) 30 ml PO Q4H PRN PRN Reason: GI Upset Stop: 01/07/19 16:58 Albuterol (Ventolin 0.083% 2.5mg/3ml) 2.5 mg INH Q4 PRN PRN Reason: Shortness Of Breath Or Wheezing Stop: 01/07/19 17:01 Bismuth Subsalicylate (Kaopectate) 15 ml PO PRN PRN PRN Reason: Loose Stool Stop: 01/07/19 16:58 Carvedilol (Coreg) 12.5 mg PO BID [facility] Stop: 01/07/19 20:59 Last Admin: 12/11/18 08:18 Dose: 12.5 mg Documented by: Hydralazine HCl (Apresoline) 50 mg PO BID [facility] Stop: 01/07/19 20:59 Last Admin: 12/11/18 08:17 Dose: 50 mg Documented by: Hydralazine HCl (Apresoline) 25 mg PO TID PRN PRN Reason: hypertension Stop: 01/08/19 08:59 Last Admin: 12/11/18 06:43 Dose: 25 mg Documented by: Hydroxyzine HCl (Vistaril) 25 mg PO Q4H PRN PRN Reason: Anxiety Stop: 01/07/19 16:58 Hydroxyzine HCl (Vistaril) 50 mg PO HSZ PRN PRN Reason: Insomnia Stop: 01/07/19 16:58 Lisinopril (Zestril) 40 mg PO DAILY [facility] Stop: 01/08/19 08:59 Last Admin: 12/11/18 08:18 Dose: 40 mg Documented by: Loxapine Succinate (Loxapine) 1 ea PO QAM [facility] Stop: 01/08/19 08:59 Last Admin: 12/11/18 08:18 Dose: 1 ea Documented by: Loxapine Succinate (Loxapine) 2 ea PO QPM NATALYA Stop: 01/07/19 20:59 Last Admin: 12/10/18 21:06 Dose: 2 ea Documented by: Magnesium Hydroxide (Milk Of Magnesia) 30 ml PO DAILY PRN PRN Reason: Heartburn Stop: 01/07/19 16:58 Metformin HCl (Glucophage) 500 mg PO HS NATALYA Stop: 01/07/19 21:59 Last Admin: 12/10/18 21:06 Dose: 500 mg Documented by: Quetiapine Fumarate (Seroquel) 200 mg PO HS NATALYA Stop: 01/08/19 21:59 Last Admin: 12/10/18 21:07 Dose: 200 mg Documented by: Quetiapine Fumarate (Seroquel) 100 mg PO DAILY NATALYA Stop: 01/09/19 08:59 Last Admin: 12/11/18 08:18 Dose: 100 mg Documented by: Sodium Chloride ([place] Nasal) 1 - 2 sprays NA PRN PRN PRN Reason: Nasal Dryness/Congestion Stop: 01/07/19 16:58 Triamterene/HCTZ (Dyazide 37.5/25mg) 1 cap PO DAILY [facility] Stop: 01/08/19 08:59 Last Admin: 12/11/18 08:18 Dose: 1 cap Documented by: Mental Health & Subst Abuse Tx Therapist Name of Therapist: none Rn Navigator Name of Rn Navigator: none, Post Discharge Appointments Primary Care Physician Name Of Family Doctor: Dr. Clark CPT Code CPT Code 06698 (1) Altered mental status Altered mental status type: unspecified Qualified Code(s): R41.82 - Altered mental status, unspecified
[2018-12-11] MEDS: METFORMIN HCL 500 MG TAB PO SCH (20:54)
[2018-12-11] MEDS: QUETIAPINE FUMARATE 200 MG TAB PO SCH (20:54)
[2018-12-12] MEDS: TRIAMTERENE/HCTZ 37.5/25MG CAP PO SCH (07:37)
[2018-12-12] MEDS: HydrALAZINE TAB 50 MG TAB PO SCH ×2 (07:37→21:31)
[2018-12-12] MEDS: LISINOPRIL 40 MG TAB PO SCH (07:37)
[2018-12-12] MEDS: QUETIAPINE FUMARATE 100 MG TABLET PO SCH (07:38)
[2018-12-12] MEDS: CARVEDILOL 12.5 MG TAB PO SCH ×2 (07:38→21:30)
[2018-12-12] MEDS: LOXAPINE SUCCINATE PO SCH ×2 (07:39→21:31)
--- NOTE | 2018-12-12 13:47 | Psychiatric Progress Note ---
Date of Service December 12, 2018 Impression / Recommendations Impression 68-year-old male with long-standing paranoid schizophrenia, tardive dyskinesia, and a history of alcohol use disorder who is managed by his PCP, on Seroquel of Loxitane for many years. He has been increasingly paranoid and delusional over the past 1-2 months, not sleeping or eating well, and his is fearful as he has been acting on his delusional thoughts that somebody is going to kill he and his . His mental status changes were likely exacerbated by medical problems, including poor p.o. intake and electrolyte disarray, which is now improving. His blood pressure was also very poorly controlled and he will need outpatient follow-up for that. Family meeting was held with his who has been informed of anticipated discharge plan, as patient does not meet criteria for extended involuntary commitment. After staff spoke with his PCPs office, he is now agreeing to referral for outpatient psychiatric care. He is admitted involuntarily, and inpatient treatment is the least restrictive appropriate venue for care at this time, although he continues to improve. Plan is for discharge tomorrow, as his involuntary commitment will be expiring tomorrow evening. (1) Paranoid schizophrenia: 12/09 -patient remains paranoid and delusional, believes thoughts are being inserted into his mind. Continue loxapine 10 mg every morning and 20 mg every afternoon, quetiapine 100 every morning, and increase the bedtime dose to 200 mg to target psychosis and sleep. -Fasting labs for monitoring on an atypical antipsychotic: Hemoglobin A1c 6.4, and fasting lipid profile within normal limits. EKG on initial presentation - QTC 478; repeated today and QTC is 456. -Encourage attendance and participation in groups and therapy. Work on healthy coping skills and a discharge safety plan. -Recommended referral for outpatient mental health treatment with a psychiatrist, therapist, and case management rn. Coordinate care with PCP. 12/10 - Continue current medication regimen as above - consider need for further titration of quetiapine/loxapine to target disorganization and paranoia - seems to be mildly improved today - Family meeting held with today - Continue arrangement of outpatient psychiatrist, therapist, and case management rn 12/11 -continue current medications; sleep improving on higher dose of quetiapine. - confirmed that firearms are removed from the home and patient will have access to them. Patient is aware that due to his involuntary commitment he cannot legally own, purchase, or possess firearms. -Refer for outpatient psychiatric care (PCP was contacted and indicated he recommends the patient see a psychiatrist in the longer wishes to manage his psychotropic medication). 12/12 - Continue current medication regimen - Reports significant interest in having records released to outpatient providers - Anticipate discharge tomorrow prior to expiration of his involuntary commitment (2) Tardive dyskinesia: 12/11 -patient scored a 4 on the AIMS. If abnormal involuntary movements become impairing, consider trial of valbenazine or tetrabenazine. 12/12 - No acute change in involuntary movements over the course of his admission (3) Hypertension: 12/09 -blood pressure has been poorly controlled. Discussed with hospitalist yesterday, who indicated that his Maxzide was held on their service due to hyponatremia, but can now be resumed. Also suggested use of clonidine 0.1 mg (which he received overnight) or hydralazine 25 mg 3 times daily as needed for hypertension. We will monitor vital signs every shift. -We will leave follow-up with PCP after discharge for ongoing monitoring. 12/10- Parameters provided to prn dosing of hydralazine - will utilize for SBP > 160 and/or DBP > 100 - Continue to monitor vital signs every shift 12/11 -patient remains intermittently hypertensive; will arrange outpatient follow-up with his PCP. (4) Hyponatremia: 12/09 - Sodium was 121 on admission 12/06/2018, and as of this morning is 133. Hypokalemia has also improved and is 3.4 this morning (was 2.9 on admission). -Encourage good nutrition and monitor p.o. intake. (5) DMII (diabetes mellitus, type 2): 12/09 -continue home dose of metformin and check blood sugar daily. Diabetic diet. (6) Altered mental status: 12/09 - Mental status on presentation exacerbated by electrolyte disarray, which has now improved. Inventory Assets Strengths: Stable housing, supportive , good compliance with treatment Needs: Outpatient mental health services, address medical issues Risk Factors Assessment Male: Yes : Yes Do You Have Access To A Gun?: Yes (Patient has alluded to having guns, but will not answer the question directly. ER records indicate he has multiple guns.) Health Problems: Yes Mental Health Diagnoses: Yes Substance Use Disorders: No Previous Attempt: No Family History of Suicide: No Previous Psychiatric Hospitalization: Yes Hopelessness: No Smoker: Yes Protective Factors Assessment : Yes Responsible for Young Children: No Employed: No Stable Relationships: No Supportive Family: Yes Good Rapport with Provider: No (No outpatient mental health providers) Interval History Identifying Information WILBERTO MANNING is a 68-year-old M who currently lives in [place] with his , has a history of schizophrenia, and was admitted on 12/08/18 16:26 on a 302 involuntary commitment for paranoia and agitation. He initially presented to the ER 12/06/2018 on a 302 warrant, but was found to be hyponatremic with a sodium of 121, hypokalemic, and hypertensive, so was initially admitted to the hospitalist service for several days. Chief Complaint "I've been working on something today. I need your help to coordinate." Review of Systems Notes Constitutional: denied Cardiovascular: denied Respiratory: denied Gastrointestinal: denied Neurological: denied Psychiatric: denies symptoms other than stated above Total of at least 10 systems reviewed, pertinent positives as above and in HPI. Sleep Information Total Hours of Sleep: 6.25 Meal Information Percent Meal Consumed - Breakfast: 100 Percent Meal Consumed - Lunch: 90 Percent Meal Consumed - Dinner: 100 Subjective Subjective Patient was seen & assessed and interval progress reviewed with nursing and social work. Staff report the patient has been attending groups regularly and is appearing improved. He rated his mood a 9/10 and "encouraged" last evening. Patient was seen today to assess progress since admission. Pt states he is doing well. He requests that this provider assist him with something he has been "working on." Pt requests that this provider assist with ensuring that his medical records are shared with his PCP. Discharge releases were explained to the patient and he was reassured that his records from this stay can be sent to any provider with his permission. Pt reports awareness that it has been recommended that he begin to see a psychiatrist, and remains agreeable to this. Pt does not verbalize any clearly delusional thought content. He denies SI/HI. Reviewed that patient's 302 expires tomorrow evening, and he reports feeling ready for discharge. He denies acute needs or concerns today. Physical Exam Psychiatric Orientation: alert, oriented x 3 and cooperative Apperance: appropriately dressed, appropriately groomed and appeared stated age Eye Contact: good eye contact Motor Behavior: steady gait and station; + abnormal motor movements (suspected tardive dyskinesia is ongoing; no exacerbation noted) Speech: normal rate/rhythm/volume of speech Affect: + blunted affect (not appearing overtly depressed, anxious, or irritable) Mood: no depressed mood and no anxious mood "I'm feeling good. I'm ready to go." Thought Process: goal directed thought process and clear/coherent thought process Thought Content: + paranoid (mild, underlying, not influencing decision-making process) and reality based without delusions (no verbalization of delusional thought content) Suicidal Thoughts: denies suicidal thoughts Homicidal Thoughts: denies homicidal thoughts Hallucinations: no auditory hallucinations and no visual hallucinations Cognition: recent memory grossly intact, attention grossly intact and language grossly intact Estimated Intelligence: consistent with education level Insight: + fair insight Judgement: + fair judgement Vital Signs (Past 24 Hours) Last Vital Signs Temp 36.8 C 12/12/18 06:44 Pulse 92 H 12/12/18 06:44 Resp 19 12/12/18 06:44 BP 127/87 12/12/18 06:44 Pulse Ox 96 12/11/18 21:00 Results & Data Laboratory Results Laboratory Results - last 24 hr 12/12/18 07:54 POC Glucose 92 Current Inpatient Medications Current Inpatient Medications: Current Inpatient Medications Acetaminophen (Tylenol) 650 mg PO Q4H PRN PRN Reason: Headache or Minor Fever Stop: 01/07/19 16:58 Al Hydrox/Mg Hydrox/Simethicone (Maalox) 30 ml PO Q4H PRN PRN Reason: GI Upset Stop: 01/07/19 16:58 Albuterol (Ventolin 0.083% 2.5mg/3ml) 2.5 mg INH Q4 PRN PRN Reason: Shortness Of Breath Or Wheezing Stop: 01/07/19 17:01 Bismuth Subsalicylate (Kaopectate) 15 ml PO PRN PRN PRN Reason: Loose Stool Stop: 01/07/19 16:58 Carvedilol (Coreg) 12.5 mg PO BID NATALYA Stop: 01/07/19 20:59 Last Admin: 12/12/18 07:38 Dose: 12.5 mg Documented by: Hydralazine HCl (Apresoline) 50 mg PO BID NATALYA Stop: 01/07/19 20:59 Last Admin: 12/12/18 07:37 Dose: 50 mg Documented by: Hydralazine HCl (Apresoline) 25 mg PO TID PRN PRN Reason: hypertension Stop: 01/08/19 08:59 Last Admin: 12/11/18 06:43 Dose: 25 mg Documented by: Hydroxyzine HCl (Vistaril) 25 mg PO Q4H PRN PRN Reason: Anxiety Stop: 01/07/19 16:58 Hydroxyzine HCl (Vistaril) 50 mg PO HSZ PRN PRN Reason: Insomnia Stop: 01/07/19 16:58 Lisinopril (Zestril) 40 mg PO DAILY [facility] Stop: 01/08/19 08:59 Last Admin: 12/12/18 07:37 Dose: 40 mg Documented by: Loxapine Succinate (Loxapine) 1 ea PO QAM [facility] Stop: 01/08/19 08:59 Last Admin: 12/12/18 07:39 Dose: 1 ea Documented by: Loxapine Succinate (Loxapine) 2 ea PO QPM NATALYA Stop: 01/07/19 20:59 Last Admin: 12/11/18 20:55 Dose: 2 ea Documented by: Magnesium Hydroxide (Milk Of Magnesia) 30 ml PO DAILY PRN PRN Reason: Heartburn Stop: 01/07/19 16:58 Metformin HCl (Glucophage) 500 mg PO HS [facility] Stop: 01/07/19 21:59 Last Admin: 12/11/18 20:54 Dose: 500 mg Documented by: Quetiapine Fumarate (Seroquel) 200 mg PO HS [facility] Stop: 01/08/19 21:59 Last Admin: 12/11/18 20:54 Dose: 200 mg Documented by: Quetiapine Fumarate (Seroquel) 100 mg PO DAILY [facility] Stop: 01/09/19 08:59 Last Admin: 12/12/18 07:38 Dose: 100 mg Documented by: Sodium Chloride ([place] Nasal) 1 - 2 sprays NA PRN PRN PRN Reason: Nasal Dryness/Congestion Stop: 01/07/19 16:58 Triamterene/HCTZ (Dyazide 37.5/25mg) 1 cap PO DAILY [facility] Stop: 01/08/19 08:59 Last Admin: 12/12/18 07:37 Dose: 1 cap Documented by: Mental Health & Subst Abuse Tx Therapist Name of Therapist: none Grant Officer Name of Grant Officer: none, Post Discharge Appointments Primary Care Physician Name Of Family Doctor: Dr. Clark CPT Code CPT Code 56053 (1) Altered mental status Altered mental status type: unspecified Qualified Code(s): R41.82 - Altered mental status, unspecified
[2018-12-12] MEDS: METFORMIN HCL 500 MG TAB PO SCH (21:30)
[2018-12-12] MEDS: QUETIAPINE FUMARATE 200 MG TAB PO SCH (21:30)
[2018-12-13] MEDS: HydrALAZINE TAB 50 MG TAB PO SCH (07:38)
[2018-12-13] MEDS: CARVEDILOL 12.5 MG TAB PO SCH (07:38)
[2018-12-13] MEDS: LISINOPRIL 40 MG TAB PO SCH (07:38)
[2018-12-13] MEDS: QUETIAPINE FUMARATE 100 MG TABLET PO SCH (07:38)
[2018-12-13] MEDS: TRIAMTERENE/HCTZ 37.5/25MG CAP PO SCH (07:38)
[2018-12-13] MEDS: LOXAPINE SUCCINATE PO SCH (07:39)
--- NOTE | 2018-12-13 12:37 | Discharge Summary ---
Date of Service December 13, 2018 History of Present Illness Patient initially presented 12/06/2018 via EMS and state police on a 302 warrant for mental health evaluation after his had called 911 because the patient had reported he "would some way or another today." The petition states he called her a Satan adventist her, was watching her sleep and shower, and told her that SP (?) Was her lifeline. He was not eating, and was drinking coffee and smoking cigarettes all day. In the ER, he said that someone was telepathically putting thoughts into his brain, and feared someone was going to harm him and his . He received haloperidol 10 mg and lorazepam 2 mg due to paranoia and suspiciousness in the ER. He was admitted medically due to hyponatremia, hypokalemia, and significantly elevated blood pressure. He was seen by the psychiatric consult service, reported a long history of schizophrenia, currently treated by his PCP who prescribes loxapine 10 mg every morning and 20 mg nightly and 100 mg of quetiapine twice daily. His was contacted and reported he had been decompensating for the past 2 months, was not sleeping well, was increasingly paranoid and delusional. He had been harassing drivers passing on the road and following his around, was paranoid and telling his she needed to check the boundaries of their property to make sure no one could get it. She did not feel safe with him at home, and it was unclear if they had weapons, as at times he reported having guns and knives, but other times refused to answer saying "it's none of your business." He was seen daily for 3 days and continued to endorse paranoia and delusions, but was unwilling for inpatient ruby atment, wanting to go home. At the time of medical stabilization yesterday, the patient continued to refuse inpatient psychiatric treatment, so was admitted involuntarily. On my assessment today, the patient reports inability to sleep last night, which has been going on for an unclear amount of time, stating he does not feel tired when he lies down and is up most of the night. He states his schedule frequently switches to where he is awake all night and sleeps during the day, but recently he has not been able to sleep at all. He denies any exacerbating factors, and has not tried sleep medication. He is willing to increase his Seroquel and try hydroxyzine if that is insufficient for sleep. He reports appetite has improved and he has been eating well in the hospital. He says mood is "I could any time, but I try to keep moving. Under the circumstances, I am trying to remain positive." When asked why he thinks he could at any moment, he says "what I just said, water is life." He endorses concerns about his "physical side of things," saying he thinks he has been diagnosed with multiple medical conditions, but is unable to clarify what they are. He does know that he has had high blood pressure and electrolyte abnormalities, and reviewed his treatment for these things thus far as well as improvement. He says "who doesn't" when asked if he has any concerns about his safety at home. He indicates believes that someone is causing his medical problems by an unknown mechanism and is targeting him and trying to hurt him, although he does not know who would be doing this or why. He also reports concerns that unknown persons are trying or have tried to come on his property, and is very focused on perceived infringement on his rights by the government. He refuses to answer questions regarding whether he processed his guns, stating he knows that the federal and state government are getting that information and using it to enact strict gun control laws. He then says there is a federal law that prevents me from asking about guns. He is aware that because of his involuntary commitment he cannot own, purchase, or possess firearms in [place]. Although he denies current mood symptoms, he reports chronic irritability and states he is known as a tvhcgppwj-ve-qvs-along-with person. He is willing to have a meeting with his , and was informed one has been scheduled for tomorrow. Physical Exam Psychiatric Orientation: oriented x 3 Apperance: appropriately dressed Eye Contact: + fair eye contact Movements consistent with tardive dyskinesia Speech: normal rate/rhythm/volume of speech Affect: euthymic affect "Much better. It is like I had a vacation or something." Thought Process: + tangential thought process The patient harbors what may be considered nondelusional paranoid ideas that may border on delusional. For example, he tells me that a [employer] wants to install a "smart meter" at his home. As he understands, the purpose of the smart meter is to transmit utility usage data. The patient says that he has carefully "researched" these devices and believes that he has learned that these devices transmitted at a particular frequency that has been shown to cause brain injury to human beings. He also believes that the [employer] are installing these devices because they charge a "Parth up" for the with each installation, and that expenses passed on to the consumer. He also says that he feels that a device that transmits data from his house represents a loss of privacy, although he has explaining how, other than to say that he can have no guarantee that "other" information besides utility use is not being transmitted. Suicidal Thoughts: denies suicidal thoughts Homicidal Thoughts: denies homicidal thoughts Hallucinations: no auditory hallucinations However, the patient notes that at the time of admission, and prior to admission he was receiving "messages" that were being "transmitted" to his brain. The content of these messages consisted of his being told that he would be severely injured or possibly killed by persons who are seeking to "get rid of [him]" Cognition: recent memory grossly intact, remote memory grossly intact and language grossly intact Estimated Intelligence: average estimated intelligence Insight: + limited insight Judgement: + limited judgement The patient is able to identify many of the symptoms of schizophrenia, and he recognizes that this and is in need of psych treatment. He is committed to a dherence with his medication regimen and is hoping to eventually coordinate his psychiatric medical care with a psychiatrist. Vital Signs (Past 24 Hours) Last Vital Signs Temp 36.5 C 12/13/18 06:00 Pulse 97 H 12/13/18 06:53 Resp 19 12/12/18 06:44 BP 134/89 12/13/18 06:53 Pulse Ox 96 12/11/18 21:00 Principal Diagnosis Schizophrenia, paranoid type. Psychiatric Data During the course of hospitalization the patient was offered various modalities of psychiatric treatment and education. He participated fairly actively in individual, group, and activity therapy. He was also provided with chemotherapy. Specifically, he was prescribed Loxitane 10 mg in the morning and 20 mg in the evening. The patient tells us that, on an outpatient basis, he had been told that he could take 10 mg twice a day, rather than 10 mg in the morning and 20 mg in the evening but up to him" whether he took the third 10 mg tabletdepending on whether he was feeling suspicious, uncomfortable, or felt "paranoid." We advised him to take Loxitane 10 mg in the morning and 20 million for the time being, until further evaluated by a psychiatrist. The patient was also offered quetiapine. Prior to admission he had been taking quetiapine 100 mg twice a day. In the hospital, his dose of quetiapine was increased from 100 mg twice a day to 100 mg in the more 200 mg bedtime. The patient's paranoia and delusional believes began to dissipate, and the patient was able to tell us that he had been believing "messages" that were placed into his head that were not based in reality and that he "should have just ignored." At the time of discharge, he tells us that the messages have stopped and, furthermore, if the messages were to resume he understands that the best course of action simply to ignore them. The patient does continue to harbor what might be considered nondelusional paranoid believes that seemed to border on the delusional. (See mental status examination report.) However, we do not believe that these believ es currently render the patient is able to the degree that he would pose a risk to self or others in the community. There had been a concern about firearms, but the patient's has been contacted and it is noted that the firearms have been removed from the patient's home. At discharge, the patient was expressing an eagerness to return home to his and the comforts of home. He is committed to continue in treatment. The patient has been accepted for treatment at [facility] outpatient services, but at the time of discharge the intake date and time had not been established. Prior to admission, the patient's medications had been prescribed by his primary care physician, Dr. Downs, and while the patient's goal is to shift his psychiatric medication management to a psychiatrist, he will be able to contact Dr. Downs in the interim period if his psychiatric symptoms worsen or if he has medication concerns. Day of Discharge Assessment On the day of discharge, the patient was pleasant, jovial, and cooperative. He walks with a normal gait, but demonstrates choreoathetoid movements consistent with tardive dyskinesia. The patient reports that his mood is "much better," and he adds that, for him, 1 of the benefits of the hospitalization was that he feels as if he "had a vacation." The patient's affect is generally euthymic. His thought processes tend to be somewhat tangential, but he is easily redirectable. As above, the patient's thought content includes paranoid thoughts that may or may not be delusional in proportion. More specifically, he believes that a plan on the part of a local [employer] company to install a "smart meter" in his house (for the purposes of broadcasting meter readings to a mobile reader) constitutes a violation of his privacy and, furthermore, poses a risk to his physical health because he believes that, based on unspecified "research" the device will transmit data at a specific frequency that is what he believes, known to cause injury to humans. The patient also believes that the [employer] company is are seeking profit through installing these devices and then charging customers a "Parth up" that will reap them pecuniary rewards. Within this context, the patient says that he is plan is to resolve the matter through complaints with the utility commission and, if necessary, in a court of law. He specifically denies any intent to his injury to persons or property associated with the [employer]. Of note is the fact that when the patient was asked what would happen if he should he become paranoid and feel threatened by 1 of these individuals, even if there was no real threat, the patient said, "I have had schizophrenia since the 1970s. I do not ever hurt anybody. I never would." Patient also reports that he is having no thoughts of suicide. He he does indicate that, in the past, he has experienced perceptual disturbances, but currently denies any auditory as well as any visual hallucinations. The patient's insight is limited, but he does recognize that he did for treatment, and he is able to correctly identify the symptoms of his illness. He also commits to adherence. The patient's judgment is fair. Transition of Care Transition Of Care Record: was reviewed with the patient Advance Directives Advance Directives Information Provided: Yes Advance Directives: No Mental Health Advance Directive: No Advance Directives on File: No Living Will: No Advance Directives Reason:: Declines as Mental Health Visit. Risk Factors Assessment Male: Yes : Yes Do You Have Access To A Gun?: Yes (Patient has alluded to having guns, but will not answer the question directly. ER records indicate he has multiple guns.) Health Problems: Yes Mental Health Diagnoses: Yes Substance Use Disorders: No Previous Attempt: No Family History of Suicide: No Previous Psychiatric Hospitalization: Yes Hopelessness: No Smoker: Yes Protective Factors Assessment : Yes Responsible for Young Children: No Employed: No Stable Relationships: No Supportive Family: Yes Good Rapport with Provider: No (No outpatient mental health providers) Tobacco Cessation at Discharge Tobacco Cessation Medication Prescribed at Discharge: Not Applicable/Non-Smoker Total Time Total Time Spent: Greater Than 30 Minutes Total Time Includes: Examination of the patient, Discharge Planning, Medication Reconciliation and Communication with other providers Discharge Data Lab Results 12/08/18 12/09/18 12/09/18 21:59 07:10 07:14 Sodium 133 L Potassium 3.4 L Chloride 96 L Carbon Dioxide 29 Anion Gap 8.0 BUN 12 D Creatinine 0.76 Est Cr Clr Drug Dosing 77.1 Est GFR ( Amer) 108.7 Est GFR (Non-Af Amer) 93.7 BUN/Creatinine Ratio 15.6 Glucose 123 H POC Glucose 120 H Calcium 9.2 Triglycerides 66 Cholesterol 142 LDL Cholesterol, Calc 81 VLDL Cholesterol, Calc 13 HDL Cholesterol 48 Cholesterol/HDL Ratio 3 12/10/18 12/11/18 12/12/18 07:21 07:24 07:54 Sodium Potassium Chloride Carbon Dioxide Anion Gap BUN Creatinine Est Cr Clr Drug Dosing Est GFR ( Amer) Est GFR (Non-Af Amer) BUN/Creatinine Ratio Glucose POC Glucose 115 H 142 H 92 Calcium Triglycerides Cholesterol LDL Cholesterol, Calc VLDL Cholesterol, Calc HDL Cholesterol Cholesterol/HDL Ratio 12/13/18 07:40 Sodium Potassium Chloride Carbon Dioxide Anion Gap BUN Creatinine Est Cr Clr Drug Dosing Est GFR ( Amer) Est GFR (Non-Af Amer) BUN/Creatinine Ratio Glucose POC Glucose 95 Calcium Triglycerides Cholesterol LDL Cholesterol, Calc VLDL Cholesterol, Calc HDL Cholesterol Cholesterol/HDL Ratio Hospital Course (1) Paranoid schizophrenia: 12/09 -patient remains paranoid and delusional, believes thoughts are being inserted into his mind. Continue loxapine 10 mg every morning and 20 mg every afternoon, quetiapine 100 every morning, and increase the bedtime dose to 200 mg to target psychosis and sleep. -Fasting labs for monitoring on an atypical antipsychotic: Hemoglobin A1c 6.4, and fasting lipid profile within normal limits. EKG on initial presentation - QTC 478; repeated today and QTC is 456. -Encourage attendance and participation in groups and therapy. Work on healthy coping skills and a discharge safety plan. -Recommended referral for outpatient mental health treatment with a psychiatrist, therapist, and immigration case worker. Coordinate care with PCP. 12/10 - Continue current medication regimen as above - consider need for further titration of quetiapine/loxapine to target disorganization and paranoia - seems to be mildly improved today - Family meeting held with today - Continue arrangement of outpatient psychiatrist, therapist, and immigration case worker 12/11 -continue current medications; sleep improving on higher dose of quetiapine. - confirmed that firearms are removed from the home and patient will have access to them. Patient is aware that due to his involuntary commitment he cannot legally own, purchase, or possess firearms. -Refer for outpatient psychiatric care (PCP was contacted and indicated he recommends the patient see a psychiatrist in the longer wishes to manage his psychotropic medication). 12/12 - Continue current medication regimen - Reports significant interest in having records released to outpatient providers - Anticipate discharge tomorrow prior to expiration of his involuntary commitment 12/13 -We have clarified that the patient's confirms that firearms have been removed from the patient's home and that he will NOT have access to them. - -The patient continues to have certain paranoid thoughts, but is easily redirectable and poses no threat to the person or property of self or others at the present time. (2) Tardive dyskinesia: 12/11 -patient scored a 4 on the AIMS. If abnormal involuntary movements become impairing, consider trial of valbenazine or tetrabenazine. 12/12 - No acute change in involuntary movements over the course of his admission. 12/13 -The patient tells me that he is aware of his abnormal involuntary movements, but feels that they have not significantly interfered with his ability to function in any sphere of endeavor. He is aware that there are treatments available (as noted above) and he was advised to discuss these options with his outpatient provider. (3) Hypertension: 12/09 -blood pressure has been poorly controlled. Discussed with hospitalist yesterday, who indicated that his Maxzide was held on their service due to hyponatremia, but can now be resumed. Also suggested use of clonidine 0.1 mg (which he received overnight) or hydralazine 25 mg 3 times daily as needed for hypertension. We will monitor vital signs every shift. -We will leave follow-up with PCP after discharge for ongoing monitoring. 12/10- Parameters provided to prn dosing of hydralazine - will utilize for SBP > 160 and/or DBP > 100 - Continue to monitor vital signs every shift 12/11 -patient remains intermittently hypertensive; will arrange outpatient follow-up with his PCP. 12/13 -the patient will continue treatment for hypertension on an outpatient basis, and will follow up with his primary care providers. (4) Hyponatremia: 12/09 - Sodium was 121 on admission 12/06/2018, and as of this morning is 133. Hypokalemia has also improved and is 3.4 this morning (was 2.9 on admission). -Encourage good nutrition and monitor p.o. intake. 12/13 -These problems are considered resolved at this point. The patient notes that he has had intermittent "low sodium" in the past. -We reviewed with him a diet for maintaining normal potassium levels, and he is aware of certain foods that are considered high in potassium, such as bananas. He has, "I like bananas, so I will not have a problem eating them." (5) DMII (diabetes mellitus, type 2): 12/09 -continue home dose of metformin and check blood sugar daily. Diabetic diet. 12/13 -The patient admits that he does not strictly follow a diabetic diet for his type 2 diabetes. However, he tells me that he knows to avoid sweets, simple carbohydrates such as "potato chips and Persian fries and rice," and he also notes that he tries to get regular exercise and eat regular meals with portion control. -The patient's most recent blood glucose level is within normal limit. He is committed to continuing metformin on an outpatient basis. (6) Altered mental status: 12/09 - Mental status on presentation exacerbated by electrolyte disarray, which has now improved. 12/13 -The patient's mental status has returned to baseline. He is fully oriented. He also was able to recall that he was "confused" at the time of admission. The causes of his confusion remains somewhat unclear. He insists that he was taking his psychiatric medications as prescribed. He does indicate that he felt as if he was under a certain amount of stress at home, because of financial limitations and because of the demands of maintaining a private home. For example, he tells us that he lacks some of the equipment that he would need to maintain his house on a regular basis. The patient notes that early in the summer he had allowed his grass to grow so high that it was an embarrassment, but he explained that he does not own a lot more and cannot afford to buy one. Eventually, he was able to hire someone to mow the lawn. He also notes that his has certain special needs and is not physically well, and he implied that, him, the time in the hospital represented a "vacation" and that he now feels prepared to return home. Mental Health & Subst Abuse Tx Psychiatrist Name of Psychiatrist: Daily Psychiatrist's Time of Appointment with Psychiatrist: Will be set after meeting with the therapist. Psychiatric Appointment Comment: [address] [place] [id number] Psychiatrist Release of Information: Obtained, Reviewed and Signed Therapist Name of Therapist: Daily Therapist's Therapy Appointment Comment: [facility] [place] [address] Therapist Release of Information: Obtained, Reviewed and Signed Touch Up Edger Name of Touch Up Edger: none, Post Discharge Appointments Primary Care Physician Name Of Family Doctor: [facility] Date of Appointment with PCP: 12/20/18 Time of Appointment with PCP: 9:45am Provider Appointment Comment: [address] [place] [id number] Primary Care Release of Information: Obtained, Reviewed and Signed Smoking Cessation Counseling Tobacco Cessation Medication Prescribed at Discharge: Not Applicable/Non-Smoker Contact Information Discharge Discharge Address: [address] [place] [address], [place] [address] Discharge Plan Discharge Items Patient Disposition: Home - Self-Care Reason For Visit: paranoid schizophrenia Discharge Diagnosis: Schizophrenia, Paranoid Type Discharge Goals: Improve disease control, Improve function and Learn about illness Activity: Resume your previous activity Non-emergency contact: Primary Care Provider, Psychiatrist and Therapist Call non-emergency contact if: you have any medication questions and your symptoms worsen Follow-up/Referrals: Roberto Clark MD [Primary Care Provider] - Diet: Carb Consistent or DM2 Addtl Provider Instructions: You will receive a call from [facility] outpatient offices to advise you of your intake appointment. Prescriptions: New quetiapine [Seroquel] 200 mg Tablet 200 mg PO HS Qty: 30 RF: 0 quetiapine 100 mg Tablet 100 mg PO DAILY Qty: 30 RF: 0 Continued metformin 500 mg tablet 500 mg PO HS RF: 0 carvedilol 25 mg tablet 12.5 mg PO BID RF: 0 albuterol sulfate 2.5 mg /3 mL (0.083 %) Solution For Nebulization 2.5 mg INHALATION Q4 PRN (Reason: Shortness Of Breath Or Wheezing) RF: 0 triamterene-hydrochlorothiazid 37.5-25 mg capsule 1 cap PO DAILY RF: 0 loxapine succinate 10 mg capsule 10 mg PO QAM RF: 0 loxapine succinate 10 mg Capsule 20 mg PO QPM RF: 0 hydralazine 50 mg tablet 50 mg PO BID RF: 0 lisinopril 40 mg tablet 40 mg PO DAILY RF: 0 Discontinued quetiapine 100 mg tablet 100 mg PO BID RF: 0 Stand-Alone Forms: [facility] Discharge Orders: Discharge Order (Routine); Ordered 12/13/18 Ordered By: Ulisses Martínez Admission Data Admit Date/Time: 12/08/18 16:26 Attending Provider: Fadia Jolly Admit Provider: Fadia Jolly Primary Care Provider: Roberto Clark Service: Psychiatry Other Interventions: PSY Interdisciplinary Discharge Planning Last Done: 12/13/18 11:33 Pending Studies at Discharge: No
--- NOTE | 2018-12-13 13:41 | Discharge Summary ---
Date of Service December 13, 2018 History of Present Illness Patient initially presented 12/06/2018 via EMS and state police on a 302 warrant for mental health evaluation after his had called 911 because the patient had reported he "would some way or another today." The petition states he called her a Satan voodoo her, was watching her sleep and shower, and told her that SP (?) Was her lifeline. He was not eating, and was drinking coffee and smoking cigarettes all day. In the ER, he said that someone was telepathically putting thoughts into his brain, and feared someone was going to harm him and his . He received haloperidol 10 mg and lorazepam 2 mg due to paranoia and suspiciousness in the ER. He was admitted medically due to hyponatremia, hypokalemia, and significantly elevated blood pressure. He was seen by the psychiatric consult service, reported a long history of schizophrenia, currently treated by his PCP who prescribes loxapine 10 mg every morning and 20 mg nightly and 100 mg of quetiapine twice daily. His was contacted and reported he had been decompensating for the past 2 months, was not sleeping well, was increasingly paranoid and delusional. He had been harassing drivers passing on the road and following his around, was paranoid and telling his she needed to check the boundaries of their property to make sure no one could get it. She did not feel safe with him at home, and it was unclear if they had weapons, as at times he reported having guns and knives, but other times refused to answer saying "it's none of your business." He was seen daily for 3 days and continued to endorse paranoia and delusions, but was unwilling for inpatient ruby atment, wanting to go home. At the time of medical stabilization yesterday, the patient continued to refuse inpatient psychiatric treatment, so was admitted involuntarily. On my assessment today, the patient reports inability to sleep last night, which has been going on for an unclear amount of time, stating he does not feel tired when he lies down and is up most of the night. He states his schedule frequently switches to where he is awake all night and sleeps during the day, but recently he has not been able to sleep at all. He denies any exacerbating factors, and has not tried sleep medication. He is willing to increase his Seroquel and try hydroxyzine if that is insufficient for sleep. He reports appetite has improved and he has been eating well in the hospital. He says mood is "I could any time, but I try to keep moving. Under the circumstances, I am trying to remain positive." When asked why he thinks he could at any moment, he says "what I just said, water is life." He endorses concerns about his "physical side of things," saying he thinks he has been diagnosed with multiple medical conditions, but is unable to clarify what they are. He does know that he has had high blood pressure and electrolyte abnormalities, and reviewed his treatment for these things thus far as well as improvement. He says "who doesn't" when asked if he has any concerns about his safety at home. He indicates believes that someone is causing his medical problems by an unknown mechanism and is targeting him and trying to hurt him, although he does not know who would be doing this or why. He also reports concerns that unknown persons are trying or have tried to come on his property, and is very focused on perceived infringement on his rights by the government. He refuses to answer questions regarding whether he processed his guns, stating he knows that the federal and state government are getting that information and using it to enact strict gun control laws. He then says there is a federal law that prevents me from asking about guns. He is aware that because of his involuntary commitment he cannot own, purchase, or possess firearms in [place]. Although he denies current mood symptoms, he reports chronic irritability and states he is known as a gyqvwqwck-ab-lzt-along-with person. He is willing to have a meeting with his , and was informed one has been scheduled for tomorrow. Physical Exam Psychiatric Orientation: oriented x 3 Apperance: appropriately dressed Eye Contact: + fair eye contact Symptoms of tardive dyskinesia present. Speech: normal rate/rhythm/volume of speech Affect: euthymic affect "Much better. Like I had a vacation!" Thought Process: + tangential thought process The patient demonstrates what I would consider at this point to be nondelusional paranoia. He is convinced, for example, that a [employer] plan to place a transmitter on a meter at his home will pose a risk to his physical safety. He insists that he has read that the frequency at which the transmitter broadcasts has been shown to be dangerous to humans, although he cannot site any specific study. He also says that he feels that the very fact that data will be "broadcast" from his home may represent an invasion of his privacy. Finally, he believes that this plan is a "money making scheme" because he believes that the [id number] companies will somehow benefit financially through the sale of the transmitters, because the cost of these will be passed on to the customers with a "Parth up." Suicidal Thoughts: denies suicidal thoughts Homicidal Thoughts: denies homicidal thoughts Hallucinations: no auditory hallucinations The patient denies current auditory hallucinations, but tells us that at the time of admission he was receiving "transmitted" negative messages that were entering his head. These "transmitted" messages told him that he was at danger of being killed or incapacitated by persons who are "against [him]." The patient notes that this is no longer occurring, and he also says that he knows that should they occur in the future he the right thing to do is simply to ignore them. Cognition: recent memory grossly intact, remote memory grossly intact and language grossly intact Estimated Intelligence: average estimated intelligence Insight: + poor insight Judgement: + fair judgement The patient recognizes that his diagnosis of schizophrenia. He is quickly able to identify some of the symptoms of schizophrenia and also recognizes the need for him to take prescribed psychiatric medications. Vital Signs (Past 24 Hours) Last Vital Signs Temp 36.5 C 12/13/18 06:00 Pulse 97 H 12/13/18 06:53 Resp 19 12/12/18 06:44 BP 134/89 12/13/18 06:53 Pulse Ox 96 12/11/18 21:00 Principal Diagnosis Schizophrenia, paranoid type. Psychiatric Data During the course of hospitalization the patient was offered various modalities treatment and education. He participated in individual, group and activity therapies. In addition, he was provided chemotherapy in the form of Loxitane and quetiapine. Advance Directives Advance Directives Information Provided: Yes Advance Directives: No Mental Health Advance Directive: No Advance Directives on File: No Living Will: No Advance Directives Reason:: Declines as Mental Health Visit. Risk Factors Assessment Male: Yes : Yes Do You Have Access To A Gun?: Yes (Patient has alluded to having guns, but will not answer the question directly. ER records indicate he has multiple guns.) Health Problems: Yes Mental Health Diagnoses: Yes Substance Use Disorders: No Previous Attempt: No Family History of Suicide: No Previous Psychiatric Hospitalization: Yes Hopelessness: No Smoker: Yes Protective Factors Assessment : Yes Responsible for Young Children: No Employed: No Stable Relationships: No Supportive Family: Yes Good Rapport with Provider: No (No outpatient mental health providers) Discharge Data Lab Results 12/08/18 12/09/18 12/09/18 21:59 07:10 07:14 Sodium 133 L Potassium 3.4 L Chloride 96 L Carbon Dioxide 29 Anion Gap 8.0 BUN 12 D Creatinine 0.76 Est Cr Clr Drug Dosing 77.1 Est GFR ( Amer) 108.7 Est GFR (Non-Af Amer) 93.7 BUN/Creatinine Ratio 15.6 Glucose 123 H POC Glucose 120 H Calcium 9.2 Triglycerides 66 Cholesterol 142 LDL Cholesterol, Calc 81 VLDL Cholesterol, Calc 13 HDL Cholesterol 48 Cholesterol/HDL Ratio 3 12/10/18 12/11/18 12/12/18 07:21 07:24 07:54 Sodium Potassium Chloride Carbon Dioxide Anion Gap BUN Creatinine Est Cr Clr Drug Dosing Est GFR ( Amer) Est GFR (Non-Af Amer) BUN/Creatinine Ratio Glucose POC Glucose 115 H 142 H 92 Calcium Triglycerides Cholesterol LDL Cholesterol, Calc VLDL Cholesterol, Calc HDL Cholesterol Cholesterol/HDL Ratio 12/13/18 07:40 Sodium Potassium Chloride Carbon Dioxide Anion Gap BUN Creatinine Est Cr Clr Drug Dosing Est GFR ( Amer) Est GFR (Non-Af Amer) BUN/Creatinine Ratio Glucose POC Glucose 95 Calcium Triglycerides Cholesterol LDL Cholesterol, Calc VLDL Cholesterol, Calc HDL Cholesterol Cholesterol/HDL Ratio Hospital Course (1) Paranoid schizophrenia: 12/09 -patient remains paranoid and delusional, believes thoughts are being inserted into his mind. Continue loxapine 10 mg every morning and 20 mg every afternoon, quetiapine 100 every morning, and increase the bedtime dose to 200 mg to target psychosis and sleep. -Fasting labs for monitoring on an atypical antipsychotic: Hemoglobin A1c 6.4, and fasting lipid profile within normal limits. EKG on initial presentation - QTC 478; repeated today and QTC is 456. -Encourage attendance and participation in groups and therapy. Work on healthy coping skills and a discharge safety plan. -Recommended referral for outpatient mental health treatment with a psychiatrist, therapist, and briefcase sewer. Coordinate care with PCP. 12/10 - Continue current medication regimen as above - consider need for further titration of quetiapine/loxapine to target disorganization and paranoia - seems to be mildly improved today - Family meeting held with today - Continue arrangement of outpatient psychiatrist, therapist, and briefcase sewer 12/11 -continue current medications; sleep improving on higher dose of quetiapine. - confirmed that firearms are removed from the home and patient will have access to them. Patient is aware that due to his involuntary commitment he cannot legally own, purchase, or possess firearms. -Refer for outpatient psychiatric care (PCP was contacted and indicated he recommends the patient see a psychiatrist in the longer wishes to manage his psychotropic medication). 12/12 - Continue current medication regimen - Reports significant interest in having records released to outpatient providers - Anticipate discharge tomorrow prior to expiration of his involuntary commitment 12/13 - (2) Tardive dyskinesia: 12/11 -patient scored a 4 on the AIMS. If abnormal involuntary movements become impairing, consider trial of valbenazine or tetrabenazine. 12/12 - No acute change in involuntary movements over the course of his admission (3) Hypertension: 12/09 -blood pressure has been poorly controlled. Discussed with eli yates yesterday, who indicated that his Maxzide was held on their service due to hyponatremia, but can now be resumed. Also suggested use of clonidine 0.1 mg (which he received overnight) or hydralazine 25 mg 3 times daily as needed for hypertension. We will monitor vital signs every shift. -We will leave follow-up with PCP after discharge for ongoing monitoring. 12/10- Parameters provided to prn dosing of hydralazine - will utilize for SBP > 160 and/or DBP > 100 - Continue to monitor vital signs every shift 12/11 -patient remains intermittently hypertensive; will arrange outpatient foll ow-up with his PCP. (4) Hyponatremia: 12/09 - Sodium was 121 on admission 12/06/2018, and as of this morning is 133. Hypokalemia has also improved and is 3.4 this morning (was 2.9 on admission). -Encourage good nutrition and monitor p.o. intake. (5) DMII (diabetes mellitus, type 2): 12/09 -continue home dose of metformin and check blood sugar daily. Diabetic diet. (6) Altered mental status: 12/09 - Mental status on presentation exacerbated by electrolyte disarray, which has now improved. Mental Health & Subst Abuse Tx Psychiatrist Name of Psychiatrist: Daily Psychiatrist's Time of Appointment with Psychiatrist: Will be set after meeting with the therapist. Psychiatric Appointment Comment: [address] [place] [id number] Psychiatrist Release of Information: Obtained, Reviewed and Signed Therapist Name of Therapist: Daily Therapist's Therapy Appointment Comment: [facility] [place] [address] Therapist Release of Information: Obtained, Reviewed and Signed Resident Associate Name of Resident Associate: none, Post Discharge Appointments Primary Care Physician Name Of Family Doctor: [facility] Date of Appointment with PCP: 12/20/18 Time of Appointment with PCP: 9:45am Provider Appointment Comment: [address] [place] [id number] Primary Care Release of Information: Obtained, Reviewed and Signed Contact Information Discharge Discharge Address: [address] [place] [address] Discharge Plan Discharge Items Reason For Visit: paranoid schizophrenia Follow-up/Referrals: Roberto Clark MD [Primary Care Provider] - Prescriptions: No Action metformin 500 mg tablet 500 mg PO HS RF: 0 carvedilol 25 mg tablet 12.5 mg PO BID RF: 0 albuterol sulfate 2.5 mg /3 mL (0.083 %) Solution For Nebulization 2.5 mg INHALATION Q4 PRN (Reason: Shortness Of Breath Or Wheezing) RF: 0 quetiapine 100 mg tablet 100 mg PO BID RF: 0 triamterene-hydrochlorothiazid 37.5-25 mg capsule 1 cap PO DAILY RF: 0 loxapine succinate 10 mg capsule 10 mg PO QAM RF: 0 loxapine succinate 10 mg Capsule 20 mg PO QPM RF: 0 hydralazine 50 mg tablet 50 mg PO BID RF: 0 lisinopril 40 mg tablet 40 mg PO DAILY RF: 0 Admission Data Admit Date/Time: 12/08/18 16:26 Attending Provider: Fadia Jolly Admit Provider: Fadia Jolly Primary Care Provider: Roberto Clark Service: Psychiatry Other Interventions: PSY Interdisciplinary Discharge Planning Last Done: 12/13/18 11:33
== END 2018-12-13 15:45 | disposition home or self-care (01) | DRG 885 ==
LOC: 3S 16:26
DX: F20.0 Paranoid schizophrenia; I10 Essential (primary) hypertension; E87.1 Hypo-osmolality and hyponatremia; R41.82 Altered mental status, unspecified; E11.9 Type 2 diabetes mellitus without complications

== ENCOUNTER 2019-06-24 06:41 | Inpatient (IN) ==
[2019-06-24] MEDS ORDERED: OPTIRAY 320 125ml IV PRN (06:47)
--- NOTE | 2019-06-24 07:02 | CT Scan Report ---
CT head/brain wo con CLINICAL HISTORY: 68 years-old Male with Stroke evaluation . Acute strokelike symptoms TECHNIQUE: Multiple axial CT images of the head were obtained without contrast. A dose lowering tech nique was utilized adhering to the principles of ALARA. COMPARISON: CTA head and neck of same day, head CT 06/05/2019 FINDINGS: No acute intracranial hemorrhage, midline shift, intracranial mass, hydrocephalus, territorial ischem ia or abnormal extra-axial collection. Age-related involutional changes. Patchy white matter hypodens ities suggest chronic microvascular ischemic disease. Remote lacunar infarct of the robbins radiata le ft frontal lobe and right thalamus. Unchanged calcification of the right frontal lobe on image 17 ser ies 2. Cerebral vascular calcifications are noted. The calvarium is intact. Mastoid air cells are clear. Near complete opacification of the left maxill dick sinus with tiny air-fluid level. Partially opacified left frontal sinus with several opacified le ft ethmoid air cells. There is slightly improved aeration of the left frontal sinus and ethmoid air c ells. Soft tissues and orbits are unremarkable. IMPRESSION: 1. No acute intracranial abnormality identified. 2. Persistent paranasal sinus disease as above. ACT 112: Negative or not required by law. The above report was generated using voice recognition software. It may contain grammatical, syntax o r spelling errors. Electronically signed by: Yandel Amaya M.D. 06/24/2019 7:01 AM
--- NOTE | 2019-06-24 07:03 | XRay Report ---
XR chest 1V portable CLINICAL HISTORY: cva dyspnea COMPARISON STUDY: 12/06/2018 FINDINGS: The bones soft tissues and hemidiaphragms are normal. The cardiomediastinal silhouette is n ormal. The lungs are clear. The pulmonary vasculature is normal. IMPRESSION: Negative chest. ACT 112: Negative or not required by law. The above report was generated using voice recognition software. It may contain grammatical, syntax or spelling errors. Electronically signed by: Parth Foy M.D. 06/24/2019 7:01 AM
[2019-06-24 07:06] LABS: Basophils # (auto) 0.01 K/uL (0-0.2); Basophils % (auto) 0.1 %; Eosinophils # (auto) 0.09 K/uL (0-0.5); Hematocrit (blood only) 38.9 % (42-52); Hemoglobin 12.9 g/dL (14.0-18.0); Immature Granulocytes # (auto) 0.03 K/uL (0.00-0.02); Immature Granulocytes % (auto) 0.3 %; Lymphocytes # (auto) 2.24 K/uL (1.2-3.4); Lymphocytes % (auto) 24.7 %; Mean Corpuscular Hemoglobin 30.6 pg (25-34); Mean Corpuscular Hgb Conc 33.2 g/dL (32-36); Mean Corpuscular Volume 92.4 fL (80-100); Monocytes % (auto) 8.8 %; Neutrophils % (auto) 65.1 %; Platelet Count 282 K/uL (130-400); RDW Coefficient of Variation 13.3 % (11.5-14.5); RDW Standard Deviation 44.4 fL (36.4-46.3); Red Blood Count 4.21 M/uL (4.7-6.1); White Blood Count 9.07 K/uL (4.8-10.8)
[2019-06-24 07:18] LABS: Partial Thromboplastin Time 27.3 Seconds (21.0-31.0); Prothrombin Time 10.3 Seconds (9.0-12.0)
--- NOTE | 2019-06-24 07:18 | CT Scan Report ---
CT angio head w con HISTORY: Mental status change cva TECHNIQUE: Multiaxial CT angiography of the head was performed IV contrast: 100 cc nonionic Maximu m intensity projection images were also obtained. A dose lowering technique was utilized adhering to the principles of ALARA. COMPARISON: 06/24/2019 FINDINGS: Probable dural based lesion lateral aspect right frontal lobe best seen on image 154. This may represent a meningioma. Visualized intracranial internal carotid arteries, distal vertebral arter ies, and basilar artery are widely patent. There is no significant stenosis, occlusion, or aneurysm s een within the bilateral ACAs, MCAs, or material requirements worker. Moderate plaque/atherosclerotic change at the cavernous sinuses. IMPRESSION: 1. No significant abnormality of the intracranial vasculature. 2. Dural based lesion lateral aspect right frontal lobe measuring 1.2 x 1.0 cm. 3. This potentially represents a meningioma although an MRI of the brain is suggested as follow-up/co nfirmation. ACT 112: Negative or not required by law. The above report was generated using voice recognition software. It may contain grammatical, syntax or spelling errors. Electronically signed by: Parth Foy M.D. 06/24/2019 7:16 AM
[2019-06-24 07:23] LABS: Albumin Level 2.8 gm/dl (3.4-5.0); BUN Creatinine Ratio 24.7 (10-20); Calcium 8.9 mg/dl (8.5-10.1); Creatinine Clr Calc Pharmacy 81.5 ml/min; Est GFR (African American) 105.8; Est GFR (Non-African American) 91.3
[2019-06-24 07:28] LABS: Albumin Globulin Ratio 0.6 (0.9-2); Bilirubin,Total 0.3 mg/dl (0.2-1); Globulin 4.3 gm/dl (2.5-4.0); Total Protein 7.1 gm/dl (6.4-8.2); Troponin I 0.026 ng/ml (0-0.045)
--- NOTE | 2019-06-24 07:37 | CT Scan Report ---
NECK CTA HISTORY: Stroke symptoms. TECHNIQUE: Multiaxial CT images of the neck were performed following the intravenous administration o f contrast to evaluate the major cervical vessels. Maximum intensity projection images were also obta ined. All measurements were calculated based on NASCET criteria. A dose lowering technique was utili zed adhering to the principles of ALARA. COMPARISON STUDY: None. FINDINGS: The aortic arch and proximal great vessels are widely patent. There is no significant sten osis, occlusion, or dissection identified within the bilateral common carotid, internal carotid, or v ertebral arteries. Mild calcified plaque within the bilateral carotid bifurcations. A few small thyro id nodules with the largest in the right lobe measuring 9 mm. Partially visualized left maxillary sin us disease. IMPRESSION: No significant stenosis, occlusion, or dissection identified within the carotid or vertebral arteries . ACT 112: Negative or not required by law. Electronically signed by: Gilbert Jorge M.D. 06/24/2019 7:35 AM
[2019-06-24] MEDS: ASPIRIN 81 MG CHEW PO STA ×2 (08:08→09:30)
[2019-06-24] MEDS: SODIUM CHLORIDE 0.9% 1000ML 1,000 ML IV SCH (08:17)
--- NOTE | 2019-06-24 08:29 | XRay Report ---
XR humerus RT 2V HISTORY: 68 years-old Male pain acute right upper arm pain COMPARISON: Chest radiograph of same day TECHNIQUE: 2 views of the right humerus FINDINGS: At least mild glenohumeral and AC joint osteoarthritis. There is an acute comminuted fracture of the greater tuberosity an lateral aspect of the surgical neck with fracture fragments displaced laterally 1.4 cm. Moderate adjacent soft tissue swelling. IMPRESSION: 1. Acute mildly comminuted fracture of the greater tuberosity and lateral cortex of the surgical neck humerus with moderate soft tissue swelling. 2. No dislocation. ACT 112: Negative or not required by law. The above report was generated using voice recognition software. It may contain grammatical, syntax o r spelling errors. Electronically signed by: Yandel Amaya M.D. 06/24/2019 8:27 AM
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
--- NOTE | 2019-06-24 09:24 | History & Physical Report ---
Date of Service June 24, 2019 Assessment & Plan (1) CVA (cerebrovascular accident): Admit under obs. Symptoms appears to be that of a stroke. As patient has the following signs and symptoms Left sided numbness, Left sided facial droop. Left tongue deviation. (towards weak side) Left sided weakness in upper and lower extremity. Will obtain MRI. consult neuro. On ASA, statin. Will obtain speech eval. Obtain stroke order sets. (2) Hypertension: Will resume home BP meds once patient is tolerating oral. Currently ordered one time dose of IV enalapril. (3) Tardive dyskinesia: Patient has history of above condition. Not currently (4) Paranoid schizophrenia: resumed home meds. appears stable (5) DMII (diabetes mellitus, type 2): No signs of history of this condition History of Present Illness Chief Complaint: left sided weakness Primary Care Provider: [facility] 68 yo male is a poor historian. Patient has history of hypertension and diabetes (however he does not appear to be on any medications.) He reports that he may have noticed some weakness on his left side before going to bed on 06/23/19 at 22:00. However he had stated to the ER that this was his last known time in which he was well. Patient awoke this AM and noticed worsenening of his weakness of his left hand and lower leg. He states he was unable to get out of bed. He states he is unable to lift up a napkin with his left hand. He also notices some weakness in his left lower leg. He also states he has numbness in his left hand. He also noticed difficulty speaking and decided to come to the ER. Allergies Allergy/AdvReac Type Severity Reaction Status Date / Time Sulfa (Sulfonamide Allergy Intermediate SWELLING, Verified 06/24/19 07:28 Antibiotics) REDNESS Home Medications Home Medications Medication Instructions Recorded Confirmed Type carvedilol 12.5 mg PO BID 12/06/18 06/24/19 History quetiapine [Seroquel] 200 mg PO HS #30 tab 12/13/18 06/24/19 Rx lisinopril 10 mg PO QAM 06/05/19 06/24/19 History hydrochlorothiazide 12.5 mg PO QAM 06/24/19 06/24/19 History prednisone 10 mg PO .TAPER 06/24/19 06/24/19 History quetiapine 100 mg PO BIDM 06/24/19 06/24/19 History Past Med/Surg History Medical History Anxiety DMII (diabetes mellitus, type 2) DVT prophylaxis Hypertension Paranoid schizophrenia Smoker Suicidal ideation Tardive dyskinesia Surgical History No pertinent past surgical history Family History (Updated 06/24/19 @ 10:09 by Simeon Presley) Father Alcoholism /alcohol abuse Other No significant family history Social History Preferred Language: Faroese Communication Ability: Effective Sharemilker Required: No Beliefs That Will Affect Care: None marital status: Life Partner Current Living Situation: Legal Guardian Other Information That Helps Us Care for You: No Feels Safe at Home: Yes Safety Concerns: Feels Safe At This Time Smoking Status: Current every day smoker Tobacco Type: cigarettes ; Do You Dip or Chew Tobacco: No ; Second Hand Exposure: No ; Tobacco Cessation Education Requested by Patient: No Hx Alcohol Use: No Hx Substance Use: Yes substance use type: marijuana and other Substance Use Type Other:: history of marijuana use Review of Systems Constitutional: + weakness; no sweats and no malaise Eyes: no diplopia and no decreased night vision Ear, Nose, Mouth, Throat: no ear pain and no tinnitus Respiratory: + cough and + dyspnea Cardiovascular: no chest pain and no radiating jaw, neck or arm pain Genitourinary: no dysuria and no urinary hesitancy Musculoskeletal: no back pain and no loss of height Integumentary: no acne and no lesions Neurologic: + localized weakness, + paralysis and + numbness Psychiatric: no behavioral changes and no anhedonia Endocrine: no fatigue Hematologic / Lymphatic: no easy bleeding Allergy / Immunological: no lip swelling Physical Exam Constitutional: WD/WN, vitals as above well developed Eyes: PERRL, conjunctivae normal, anicteric sclerae (convergece is poor on examination) ENMT: external ear and nose normal, oropharynx normal Neck: trachea midline, no thyromegaly Respiratory: normal respiratory effort, lungs clear to auscultation Cardiovascular: RRR, no murmur, no edema Gastrointestinal (Abdomen): normal bowel sounds, soft, nontender, no hepatosplenomegaly Musculoskeletal: Head/Neck/Chest: head atraumatic Skin: no rashes, warm and dry Neurologic: patellar DTR's 2+ bilat, sensation intact (except for noted below) CN's II-XI intact bilaterally (except for noted below.) Facial droop on left, Patient has his left tongue deviated to the left. 4/5 MUSCLE STRENGTH IN LEFT UPPER EXTREMITY, AND LEFT LOWER EXTREMITY. Decreased sensation in left hand. 5 out of 5 strength in contralateral side Results & Data Vital Signs (Past 12 Hours) Vital Signs Temp Pulse Pulse Resp BP BP Pulse Ox 06/24/19 07:47 67 17 200/105 H 96 06/24/19 07:26 61 20 209/119 H 97 06/24/19 07:20 98 06/24/19 06:55 36.8 C 70 18 191/105 H 96 PG Care Time/CCT Total # of Minutes Spent Total Time Spent with Patient: Total time spent is greater than 50% in coordination of care (as documented) at patient's floor/unit and/or counseling patient: Coding Level of Care Code 62593 Initial Inpt Care Lvl 3 Diagnoses CVA (cerebrovascular accident) I63.9 CVA mechanism: unspecified Hypertension I10 Tardive dyskinesia G24.01 Paranoid schizophrenia F20.0 DMII (diabetes mellitus, type 2) E11.9 Time Spent (min) 55 (1) CVA (cerebrovascular accident) CVA mechanism: unspecified Qualified Code(s): I63.9 - Cerebral infarction, unspecified
[2019-06-24] MEDS ORDERED: ENALAPRILAT 1.25 MG in DEXTROSE 5% 25 ML IV ONE (10:35)
[2019-06-24] MEDS ORDERED: lisinopriL 10 MG TAB PO SCH (11:21)
[2019-06-24] MEDS ORDERED: PHARMACIST DISCHARGE MED REC CONSULT PRN (11:21)
[2019-06-24 12:00] LABS: Estimated Average Glucose 137 mg/dl; Hemoglobin A1C 6.4 % (4.5-5.6)
--- NOTE | 2019-06-24 14:57 | Electrocardiogram Report ---
Test Reason : Blood Pressure : / mmHG Vent. Rate : 065 BPM Atrial Rate : 065 BPM P-R Int : 152 ms QRS Dur : 126 ms QT Int : 448 ms P-R-T Axes : 065 -36 095 degrees QTc Int : 465 ms Normal sinus rhythm Left axis deviation Left ventricular hypertrophy with QRS widening Anterior ST elevations of unclear significance, unchanged from prior T wave abnormality, consider lateral ischemia Abnormal ECG When compared with ECG of 05-JUN-2019 11:21, T wave inversion more evident in Lateral leads Confirmed by Evan Quinones ([id number]) on 06/24/2019 2:57:13 PM Referred By: [facility] Confirmed By:Baron Quinones
--- NOTE | 2019-06-24 15:21 | Magnetic Resonance Report ---
MR brain wo con HISTORY: Mental status change stroke symptoms TECHNIQUE: Multiplanar multisequence MRI of the brain was performed without the use of contrast. COMPARISON STUDY: None. FINDINGS: Diffusion images demonstrate small foci of acute ischemic change involving the posterior as pect of the right internal capsule as well as superior aspect of the right thalamus. There is a very small focus of acute ischemic change of the left internal capsule. All foci are less than 1 cm in maximum dimension. The ventricular system is midline. There is moderate chronic small vessel change throughout the cereb ellar as well as cerebral hemispheres. The internal auditory canals are symmetric. The sella and para sellar regions are unremarkable. The left maxillary sinus is opacified. IMPRESSION: 1. Compromised exam due to patient motion. 2. Several small microinfarcts of the periventricular regions bilaterally. 2. These include the superior right thalamus, and posterior internal capsules bilaterally, 3. Remainder the study shows evidence for age-related chronic small vessel change and atrophy. 4. Opacified left maxillary sinus. ACT 112: Negative or not required by law. The above report was generated using voice recognition software. It may contain grammatical, syntax or spelling errors. Electronically signed by: Parth Foy M.D. 06/24/2019 3:19 PM
[2019-06-24] MEDS: carvediloL 12.5 MG TAB PO SCH ×2 (16:05→21:55)
[2019-06-24] MEDS: hydroCHLOROthiazide 25 MG TAB PO SCH (16:05)
[2019-06-24] MEDS: ATORVASTATIN 40 MG TAB PO SCH (16:06)
[2019-06-24] MEDS: predniSONE 10 MG TABLET PO SCH (16:58)
[2019-06-24] MEDS: QUETIAPINE FUMARATE 100 MG TABLET PO SCH (17:00)
[2019-06-24] MEDS: QUETIAPINE FUMARATE 200 MG TAB PO SCH (21:54)
[2019-06-25] MEDS: SODIUM CHLORIDE 0.9% 1000ML 1,000 ML IV SCH ×2 (03:00→22:24)
[2019-06-25 05:54] LABS: Basophils # (auto) 0.01 K/uL (0-0.2); Basophils % (auto) 0.1 %; Hematocrit (blood only) 38.1 % (42-52); Immature Granulocytes # (auto) 0.03 K/uL (0.00-0.02); Immature Granulocytes % (auto) 0.3 %; Lymphocytes # (auto) 1.77 K/uL (1.2-3.4); Lymphocytes % (auto) 16.5 %; Mean Corpuscular Hemoglobin 31.3 pg (25-34); Mean Corpuscular Hgb Conc 34.1 g/dL (32-36); Mean Corpuscular Volume 91.6 fL (80-100); Monocytes # (auto) 0.76 K/uL (0.11-0.59); Monocytes % (auto) 7.1 %; Neutrophils # (auto) 8.13 K/uL (1.4-6.5); Platelet Count 303 K/uL (130-400); RDW Coefficient of Variation 13.2 % (11.5-14.5); RDW Standard Deviation 44.4 fL (36.4-46.3); Red Blood Count 4.16 M/uL (4.7-6.1)
[2019-06-25 06:26] LABS: BUN Creatinine Ratio 27.7 (10-20); Calcium 8.8 mg/dl (8.5-10.1); Creatinine Clr Calc Pharmacy 91.7 ml/min; Est GFR (African American) 111.1; Est GFR (Non-African American) 95.9; Potassium 3.2 mmol/L (3.5-5.1)
[2019-06-25] MEDS: carvediloL 12.5 MG TAB PO SCH ×2 (08:13→20:50)
[2019-06-25] MEDS: CLOPIDOGREL BISULFATE 75 MG TAB PO SCH (08:13)
[2019-06-25] MEDS: hydroCHLOROthiazide 25 MG TAB PO SCH (08:14)
[2019-06-25] MEDS: QUETIAPINE FUMARATE 100 MG TABLET PO SCH ×2 (08:14→16:46)
[2019-06-25] MEDS: ATORVASTATIN 40 MG TAB PO SCH (08:15)
[2019-06-25] MEDS ORDERED: ASPIRIN 81 MG ECTAB PO SCH (09:00)
[2019-06-25] MEDS ORDERED: lisinopriL 10 MG TAB PO SCH (09:00)
--- NOTE | 2019-06-25 09:53 | Neurology Consultation ---
Date of Consultation June 25, 2019 Assessment & Plan (1) CVA (cerebrovascular accident): Acute, punctate multifocal infarcts within the bilateral periventricular regions. The acute ischemic infarct within the posterior limb of the right internal capsule was likely the most symptomatic and presenting with a left hemiparesis, sensory deficit, and reported dysarthria. The symptoms have completely resolved. This patient does have several stroke risk factors including poorly controlled hypertension, diabetes mellitus, and cigarette smoking. There is no evidence of significant carotid or vertebral vascular disease on angiography. Dissection probably unlikely. Cardiac embolism not completely excluded. Please order a transthoracic echocardiogram with bubble study if not already done so. Consider 30-day cardiac event monitor. Agree with antiplatelet therapy. Would use either daily low-dose aspirin or clopidogrel 75 mg/day. This patient may not tolerate combined antiplatelet therapy as currently ordered as he does report a history of excessive bleeding with aspirin in the past. Continue medical management of hypertension which has been poorly controlled. Gradual reduction of blood pressure during hospitalization with continued outpatient follow-up with primary care. Additional counseling regarding importance of smoking cessation should be provided to the patient. Patient is currently neurologically stable and does not appear to have any acute inpatient rehabilitation needs. (2) Tardive dyskinesia: Very mild tardive dyskinesia. Probably does not require treatment. This issue was evaluated by psychiatry during an admission to the mental health unit this past November. Treatment was not recommended at that time. History of Present Illness Reason for Consultation: Stroke Requesting Physician: Simeon Presley Attending Physician: Simeon Presley History of Present Illness The patient is a 68-year-old male with a chief complaint of left-sided weakness that was present upon awakening yesterday morning at around 5:30 AM. The weakness affected the face, arm, and leg and was associated with a feeling of numbness as well. Was unable to get out of bed due to the weakness. He has been incarcerated for the past 10 days. He also recalls having some associated slurred speech. History notable for paranoid schizophrenia with an admission to the mental health unit at [facility] this past November. History also notable for type 2 diabetes mellitus, hypertension, cigarette smoking, and tardive dyskinesia. He had presented to [facility] earlier this month, on June 05, for evaluation and management of significant hypertension with associated lightheadedness and paresthesias. He was not admitted at that time for further evaluation and management. During his current presentation, a CT of the head was negative for any acute abnormality. CT angiography of the head and neck was negative for any significant vascular lesion although there was evidence of a probable 1 cm right frontal lobe meningioma. A follow-up noncontrast brain MRI revealed several small microinfarcts, one within the posterior limb of the right internal capsule, with the other is in the superior right thalamus and a very small focus within the left internal capsule. Imaging described in further detail below. No evidence of atrial fibrillation on an electrocardiogram completed yesterday or during his previous assessment on June 05. Patient also reports a fall with an injury to the bridge of the nose occurring about 1 week ago. No headache or facial pain reported at this time. Patient denies any neck pain. He does complain of some right arm pain and was diagnosed with a fracture of the greater tuberosity and lateral cortex of the surgical neck of the right humerus, no dislocation. This morning, the patient reports that his left-sided weakness and sensory disturbance have resolved. No residual speech change or dizziness at this time. Additional details as below. Allergies Allergy/AdvReac Type Severity Reaction Status Date / Time Sulfa (Sulfonamide Allergy Intermediate SWELLING, Verified 06/24/19 07:28 Antibiotics) REDNESS Home Medications Home Medications Medication Instructions Recorded Confirmed Type carvedilol 12.5 mg PO BID 12/06/18 06/24/19 History quetiapine [Seroquel] 200 mg PO HS #30 tab 12/13/18 06/24/19 Rx lisinopril 10 mg PO QAM 06/05/19 06/24/19 History hydrochlorothiazide 12.5 mg PO QAM 06/24/19 06/24/19 History prednisone 10 mg PO .TAPER 06/24/19 06/24/19 History quetiapine 100 mg PO BIDM 06/24/19 06/24/19 History Patient History Medical History Anxiety DMII (diabetes mellitus, type 2) DVT prophylaxis Hypertension Paranoid schizophrenia Smoker Suicidal ideation Tardive dyskinesia Surgical History No pertinent past surgical history Family History Father Alcoholism /alcohol abuse Other No significant family history Social History Preferred Language: Sri Lankan Communication Ability: Effective 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 Beliefs That Will Affect Care: None marital status: Life Partner Current Living Situation: Legal Guardian Other Information That Helps Us Care for You: No Feels Safe at Home: Yes Safety Concerns: Feels Safe At This Time Smoking Status: Current every day smoker Tobacco Type: cigarettes ; Do You Dip or Chew Tobacco: No ; Second Hand Exposure: No ; Tobacco Cessation Education Requested by Patient: No Hx Alcohol Use: No Hx Substance Use: Yes substance use type: marijuana and other Substance Use Type Other:: history of marijuana use Review of Systems Constitutional: no fever and no chills Eyes: no blind spots, no diplopia and no eye pain Ear, Nose, Mouth, Throat: no tinnitus and no hearing loss Respiratory: no cough and no dyspnea Cardiovascular: no chest pain and no palpitations Gastrointestinal: no vomiting Genitourinary: no urinary incontinence Musculoskeletal: no neck pain and no myalgia Integumentary: no rash and no lesions Neurologic: as per Subjective / HPI; no headache(s), no confusion and no memory loss Psychiatric: History of paranoid schizophrenia. Patient indicates that his mood has been stable recently. Hematologic / Lymphatic: + easy bruising Physical Exam Physical Exam: The patient is a thin, elderly male. He is sitting up comfortably in bed, no acute distress. Patient is alert and fully oriented. Recent and remote memory intact. Attention and concentration normal. Patient exhibits a normal spontaneous speech pattern as well as an age-appropriate fund of knowledge. Visual suarez full to confrontation. Visual acuity normal. Pu pils equal round reactive to light and accommodation. Eye movements normal. There is no nystagmus, ptosis, or ophthalmoplegia. Facial sensation intact. There is no facial droop or weakness. Hearing intact. Palate elevates to midline. Shoulder shrug intact. Tongue protrudes to midline. Sensation intact to all modalities in all 4 limbs. Deep tendon reflexes are intact and symmetrical for the arms and legs bilaterally. Plantar responses downgoing bilaterally. There is no dysdiadochokinesia or dysmetria [id number] or [id number] bilaterally. Ophthalmoscopic examination reveals normal-appearing optic disks and posterior segments. No papilledema or hemorrhages. Carotid pulses normal bilaterally, no bruits to auscultation. Gait and station normal. Patient exhibits normal muscle strength and tone for all 4 limbs. No atrophy. Patient does have very mild tardive dyskinetic movements of the perioral musculature and tongue. No generalized tremors or other signs of parkinsonism such as rigidity, bradykinesia, or resting tremor. Results & Data Vital Signs (Past 12 Hours) Vital Signs Temp Pulse Pulse Resp BP BP Pulse Ox 06/25/19 07:24 54 L 06/25/19 07:18 36.7 C 65 18 233/106 H 96 06/25/19 05:01 196/111 H 06/25/19 03:12 37.0 C 58 L 19 208/110 H 98 06/24/19 23:59 64 06/24/19 23:29 36.7 C 63 20 161/89 H 96 06/24/19 22:00 64 Laboratory Results WBC 10.70, hemoglobin 13.0, hematocrit 38.1, platelet count 303, sodium 135, potassium 3.2, BUN 20, creatinine 0.72, glucose 121, hemoglobin A1c 6.4, calcium 8.8, magnesium 2.0, AST 11, ALT 14, troponin 0 0.026, triglycerides 63, cholesterol 140, LDL 89, VLDL 13, HDL [address] of the head completed June 24, 2019- for hemorrhage or acute process. There are patchy white matter hypodensities consistent with chronic microvascular ischemic disease as well as an old lacunar infarct within the robbins radiata of the left frontal lobe and right thalamus. I reviewed the images as well as the radiologist interpretation of this test. CT angiography of the head and neck unremarkable, no evidence for thrombosis, dissection, aneurysm, or stenosis. There is an incidental 1.2 x 1 cm dural based lesion, probably a meningioma, along the lateral aspect of the right frontal lobe. I reviewed the images as well as the radiologist interpretation o f this test. Noncontrast MRI of the brain reveals several small microinfarcts within the periventricular regions bilaterally. There is a small acute infarct within the posterior aspect of the right internal capsule as well as the superior aspect of the right thalamus. There is a small acute infarct within the left internal capsule as well. I reviewed the images as well as the radiologist inter pretation of this test. Electrocardiogram completed yesterday reveals a normal sinus rhythm, 65 bpm. An electrocardiogram completed June 05, 2019 revealed a normal sinus rhythm, 64 bpm. Coding Level of Care Code 43238 Initial In Care Lvl 3 Diagnoses CVA (cerebrovascular accident) I63.9 CVA mechanism: unspecified Tardive dyskinesia G24.01 (1) CVA (cerebrovascular accident) CVA mechanism: unspecified Qualified Code(s): I63.9 - Cerebral infarction, unspecified
[2019-06-25] MEDS: predniSONE 10 MG TABLET PO SCH (12:37)
[2019-06-25] MEDS: HEPARIN SOD 5,000 UNIT/0.5 ML VIAL SQ SCH ×3 (14:18→21:06)
[2019-06-25] MEDS ORDERED: AMLODIPINE BESYLATE 5 MG TAB PO ONE (16:17)
--- NOTE | 2019-06-25 16:42 | XCELERA ---
[id number]
[2019-06-25] MEDS: QUETIAPINE FUMARATE 200 MG TAB PO SCH (20:49)
[2019-06-25] MEDS ORDERED: AMLODIPINE BESYLATE 5 MG TAB PO SCH (21:00)
--- NOTE | 2019-06-25 21:55 | Hospitalist Progress Note ---
Date of Service June 25, 2019 Assessment & Plan (1) CVA (cerebrovascular accident): Admitted under obs. However switched to admission status due to stroke.. MRI confirmed strokes. Clinical symptoms match MRI findings. consulted neuro and appreciate input. Stop aspirin, and will place on plavix and statin. Ordered carotid imaging and echo cardiogram. Obtain stroke order sets (2) Hypertension: BP is elevated. Will place patient on amlodipine. continue davi inhibitor and beta malik. (3) Tardive dyskinesia: Patient has history of above condition. Not currently active (4) Paranoid schizophrenia: resumed home meds. appears stable (5) DMII (diabetes mellitus, type 2): No signs of history of this condition (6) Closed right humeral fracture: Closed right humeral fracture Will consult ortho. Appreciate input. Admission and Anticipated Discharge Date Admission Date: June 24, 2019 Subjective 68 yo male reports feeling much better. Patient reports less weakness in his left arm. He also reports that he is able to speak better today as well. Patient denies any fever, chills, nausea vomiting. Patient does reports pain in his right shoulder and he would like to be evaluated by ortho. Review of Systems Review of Systems: All systems reviewed & are unremarkable except as noted in HPI & below Physical Exam Constitutional: WD/WN, vitals as above well developed Eyes: PERRL, conjunctivae normal, anicteric sclerae (convergece is poor on examination) ENMT: external ear and nose normal, oropharynx normal Neck: trachea midline, no thyromegaly Respiratory: normal respiratory effort, lungs clear to auscultation Cardiovascular: RRR, no murmur, no edema Gastrointestinal (Abdomen): normal bowel sounds, soft, nontender, no hepatosplenomegaly Musculoskeletal: Head/Neck/Chest: head atraumatic Shoulder: + joint line tenderness (Active ROM is decreased due to pain.) Skin: no rashes, warm and dry Neurologic: patellar DTR's 2+ bilat, sensation intact (except for noted below) CN's II-XI intact bilaterally (except for noted below.) Results & Data ([facility]) Vital Signs (Past 12 Hours) Vital Signs Temp Pulse Resp BP BP Pulse Ox 06/25/19 19:52 36.9 C 80 20 193/98 H 96 06/25/19 16:30 173/99 H 02/26/20 14:49 36.5 C 67 18 220/97 H 95 06/25/19 11:14 36.3 C L 67 18 163/94 H 96 PG Care Time/CCT Total # of Minutes Spent Total Time Spent with Patient: Total time spent is greater than 50% in coordination of care (as documented) at patient's floor/unit and/or counseling patient: Coding Level of Care Code 18070 Subseq Hosp Care Lvl 3 Diagnoses CVA (cerebrovascular accident) I63.9 CVA mechanism: unspecified Hypertension I10 Tardive dyskinesia G24.01 Paranoid schizophrenia F20.0 DMII (diabetes mellitus, type 2) E11.9 Closed right humeral fracture S42.301A Time Spent (min) 35 (1) CVA (cerebrovascular accident) CVA mechanism: unspecified Qualified Code(s): I63.9 - Cerebral infarction, unspecified
[2019-06-26] MEDS: HydrALAZINE HCL 20 MG/ML VIAL IV PRN ×3 (01:50→23:33)
[2019-06-26] MEDS: HEPARIN SOD 5,000 UNIT/0.5 ML VIAL SQ SCH ×3 (05:23→20:47)
[2019-06-26 08:18] LABS: Basophils # (auto) 0.01 K/uL (0-0.2); Basophils % (auto) 0.1 %; Eosinophils # (auto) 0.03 K/uL (0-0.5); Eosinophils % (auto) 0.2 %; Hematocrit (blood only) 39.3 % (42-52); Hemoglobin 13.6 g/dL (14.0-18.0); Immature Granulocytes # (auto) 0.07 K/uL (0.00-0.02); Immature Granulocytes % (auto) 0.5 %; Lymphocytes # (auto) 1.87 K/uL (1.2-3.4); Lymphocytes % (auto) 12.8 %; Mean Corpuscular Hemoglobin 31.6 pg (25-34); Mean Corpuscular Hgb Conc 34.6 g/dL (32-36); Mean Corpuscular Volume 91.2 fL (80-100); Monocytes % (auto) 7.5 %; Neutrophils # (auto) 11.58 K/uL (1.4-6.5); Neutrophils % (auto) 78.9 %; Platelet Count 288 K/uL (130-400); RDW Coefficient of Variation 13.3 % (11.5-14.5); RDW Standard Deviation 44.5 fL (36.4-46.3); Red Blood Count 4.31 M/uL (4.7-6.1); White Blood Count 14.66 K/uL (4.8-10.8)
[2019-06-26] MEDS: hydroCHLOROthiazide 25 MG TAB PO SCH (08:50)
[2019-06-26] MEDS: carvediloL 12.5 MG TAB PO SCH ×2 (08:50→20:42)
[2019-06-26 08:51] LABS: BUN Creatinine Ratio 28.7 (10-20); Creatinine Clr Calc Pharmacy 95.8 ml/min; Est GFR (African American) 115.9; Potassium 2.9 mmol/L (3.5-5.1)
[2019-06-26] MEDS: CLOPIDOGREL BISULFATE 75 MG TAB PO SCH (08:51)
[2019-06-26] MEDS: QUETIAPINE FUMARATE 100 MG TABLET PO SCH ×2 (08:51→16:33)
[2019-06-26] MEDS: ATORVASTATIN 40 MG TAB PO SCH (08:53)
--- NOTE | 2019-06-26 09:42 | Orthopedic Consultation ---
Date of Consultation June 26, 2019 Assessment & Plan (1) Proximal humerus fracture: Displaced right greater tuberosity fracture. Sling immobilization, nonweightbearing right upper extremity, ice to right shoulder, pain control, Lidoderm patch, will obtain CT to better delineate fracture and displacement. Thank you for the consultation History of Present Illness Reason for Consultation: Right proximal humerus fracture Attending Physician: Simeon Presley History of Present Illness The patient is a 68-year-old Incarcerated male who complains of 2 weeks of right shoulder pain and decreased range of motion secondary to trauma sustained due to interaction with [facility] he reports. Denies numbness and tingling to right upper extremity denies any associated injuries. Allergies Allergy/AdvReac Type Severity Reaction Status Date / Time Sulfa (Sulfonamide Allergy Intermediate SWELLING, Verified 06/24/19 07:28 Antibiotics) REDNESS Home Medications Home Medications Medication Instructions Recorded Confirmed Type carvedilol 12.5 mg PO BID 12/06/18 06/24/19 History quetiapine [Seroquel] 200 mg PO HS #30 tab 12/13/18 06/24/19 Rx lisinopril 10 mg PO QAM 06/05/19 06/24/19 History hydrochlorothiazide 12.5 mg PO QAM 06/24/19 06/24/19 History prednisone 10 mg PO .TAPER 06/24/19 06/24/19 History quetiapine 100 mg PO BIDM 06/24/19 06/24/19 History Patient History Medical History Anxiety DMII (diabetes mellitus, type 2) DVT prophylaxis Hypertension Paranoid schizophrenia Smoker Suicidal ideation Tardive dyskinesia Surgical History No pertinent past surgical history Family History Father Alcoholism /alcohol abuse Other No significant family history Social History Preferred Language: Slovenian Communication Ability: Effective 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 Beliefs That Will Affect Care: None marital status: Life Partner Current Living Situation: Legal Guardian Other Information That Helps Us Care for You: No Feels Safe at Home: Yes Safety Concerns: Feels Safe At This Time Smoking Status: Current every day smoker Tobacco Type: cigarettes ; Do You Dip or Chew Tobacco: No ; Second Hand Exposure: No ; Tobacco Cessation Education Requested by Patient: No Hx Alcohol Use: No Hx Substance Use: Yes substance use type: marijuana and other Substance Use Type Other:: history of marijuana use Review of Systems Review of Systems: All systems reviewed & are unremarkable except as noted in HPI & below Constitutional: as per Subjective / HPI Physical Exam Physical Exam: Right upper extremity physical exam limited secondary to pain, neurovascular sensory intact grossly, limited range of motion with 90 degrees of forward flexion and abduction. Decreased muscle strength, +2 radial pulse, compartment soft nontender. Constitutional: WD/WN, vitals as above Results & Data ([facility]) Vital Signs (Past 12 Hours) Vital Signs Temp Pulse Pulse Pulse Resp BP BP 06/26/19 07:40 36.4 C L 88 19 170/99 H 06/26/19 07:10 93 H 06/26/19 05:23 85 164/88 H 06/26/19 04:00 36.7 C 71 16 192/100 H 06/26/19 01:56 65 188/117 H 06/26/19 00:52 78 06/25/19 23:42 36.7 C 59 L 20 197/110 H 06/25/19 22:31 67 Pulse Ox 06/26/19 07:40 93 06/26/19 07:10 06/26/19 05:23 06/26/19 04:00 96 06/26/19 01:56 06/26/19 00:52 06/25/19 23:42 97 06/25/19 22:31 Diagnostic Findings XR humerus RT 2V HISTORY: 68 years-old Male pain acute right upper arm pain COMPARISON: Chest radiograph of same day TECHNIQUE: 2 views of the right humerus FINDINGS: At least mild glenohumeral and AC joint osteoarthritis. There is an acute comminuted fracture of the greater tuberosity an lateral aspect of the surgical neck with fracture fragments displaced laterally 1.4 cm. Moderate adjacent soft tissue swelling. IMPRESSION: 1. Acute mildly comminuted fracture of the greater tuberosity and lateral cortex of the surgical neck humerus with moderate soft tissue swelling. 2. No dislocation.
--- NOTE | 2019-06-26 10:51 | CT Scan Report ---
RIGHT SHOULDER CT CT DOSE: 286.91 mGy.cm HISTORY: Right shoulder fracture TECHNIQUE: Multiaxial CT images of the right shoulder were performed and reformatted in the sagittal and coronal plane without the use of contrast. A dose lowering technique was utilized adhering to th e principles of ALARA. COMPARISON: Right humerus 06/24/2019. FINDINGS: There is a vertical fracture through the lateral aspect of the humeral neck and greater tub erosity of the humeral head. This does not involve the medial cortex of the humeral neck. The fractur e fragments are comminuted and displaced posteriorly/superiorly from the humeral head. This is consis tent with a displaced Hill-Sachs fracture. In addition, there is a small nondisplaced fracture at the anterior inferior rim of the glenoid consistent with a bony Bankart lesion. No dislocation at this t malik. The distal right clavicle appears intact. Small to moderate joint effusion. IMPRESSION: 1. Displaced Hill-Sachs fracture with a corresponding nondisplaced bony Bankart lesion/fracture consi stent with a prior right shoulder dislocation. No dislocation at this time. 2. Small to moderate joint effusion. ACT 112: Negative or not required by law. Electronically signed by: Gilbert Jorge M.D. 06/26/2019 10:50 AM
[2019-06-26] MEDS: POTASSIUM CHLORIDE 20 MEQ TABCR PO SCH ×3 (12:30→20:43)
[2019-06-26] MEDS: lisinopriL 20 MG TAB PO SCH (12:31)
[2019-06-26] MEDS: predniSONE 10 MG TABLET PO SCH (12:31)
[2019-06-26] MEDS: LIDOCAINE 5% 1 PATCH TD SCH (14:45)
[2019-06-26] MEDS: SODIUM CHLORIDE 0.9% 1000ML 1,000 ML IV SCH (19:12)
[2019-06-26] MEDS: AMLODIPINE BESYLATE 5 MG TAB PO SCH (20:45)
[2019-06-26] MEDS: QUETIAPINE FUMARATE 200 MG TAB PO SCH (20:46)
--- NOTE | 2019-06-26 22:18 | Hospitalist Progress Note ---
Date of Service June 26, 2019 Assessment & Plan (1) CVA (cerebrovascular accident): Admitted under obs. However switched to admission status due to stroke.. MRI confirmed strokes. Clinical symptoms match MRI findings. consulted neuro and appreciate input. Stop aspirin, and will place on plavix and statin. Ordered carotid imaging and echo cardiogram. Obtained stroke order sets Strokes are small lacunar infarcts and patient has recovered. Will hold discharge due to low potassium and elevated BP. (2) Hypertension: BP is elevated. continue amlodipine (added during hospital stay) davi inhibitor and beta malik. Main change today is increasing lisinopril to 20 mg PO daily. Pain from his right shoulder may also be attributing to his elevated BP. (3) Tardive dyskinesia: Patient has history of above condition. Not currently active (4) Paranoid schizophrenia: resumed home meds. appears stable (5) DMII (diabetes mellitus, type 2): No signs of history of this condition (6) Closed right humeral fracture: Closed right humeral fracture Appreciate input. Discussed with ortho. Needs to have this surgically repaired. However, patient did have stroke as described above. Will try to touch base with Neuro to see when will be a good time for him to have surgery. (7) Hypokalemia: currently replacing his potassium. Admission and Anticipated Discharge Date Admission Date: June 24, 2019 Subjective Patient reports feeling better. Patient has no new complaints. His main concern is the right shoulder pain that he is now having. Review of Systems Review of Systems: All systems reviewed & are unremarkable except as noted in HPI & below Physical Exam Constitutional: WD/WN, vitals as above well developed Eyes: PERRL, conjunctivae normal, anicteric sclerae (convergece is poor on examination) ENMT: external ear and nose normal, oropharynx normal Neck: trachea midline, no thyromegaly Respiratory: normal respiratory effort, lungs clear to auscultation Cardiovascular: RRR, no murmur, no edema Gastrointestinal (Abdomen): normal bowel sounds, soft, nontender, no hepatosplenomegaly Musculoskeletal: Head/Neck/Chest: head atraumatic Shoulder: + joint line tenderness (Active ROM is decreased due to pain.) Skin: no rashes, warm and dry Neurologic: patellar DTR's 2+ bilat, sensation intact (except for noted below) CN's II-XI intact bilaterally (except for noted below.) Results & Data ([facility]) Vital Signs (Past 12 Hours) Vital Signs Temp Pulse Pulse Resp BP BP Pulse Ox 06/26/19 19:37 81 06/26/19 19:24 36.7 C 83 20 193/108 H 94 06/26/19 16:00 36.8 C 82 18 166/97 H 96 PG Care Time/CCT Total # of Minutes Spent Total Time Spent with Patient: Total time spent is greater than 50% in coordination of care (as documented) at patient's floor/unit and/or counseling patient: Coding Level of Care Code 00852 Subseq Hosp Care Lvl 3 Diagnoses CVA (cerebrovascular accident) I63.9 CVA mechanism: unspecified Hypertension I10 Tardive dyskinesia G24.01 Paranoid schizophrenia F20.0 DMII (diabetes mellitus, type 2) E11.9 Closed right humeral fracture S42.301A Hypokalemia E87.6 Time Spent (min) 35 (1) CVA (cerebrovascular accident) CVA mechanism: unspecified Qualified Code(s): I63.9 - Cerebral infarction, unspecified
[2019-06-27] MEDS: HydrALAZINE HCL 20 MG/ML VIAL IV PRN ×2 (04:36→11:14)
[2019-06-27] MEDS: HEPARIN SOD 5,000 UNIT/0.5 ML VIAL SQ SCH ×3 (04:39→22:44)
[2019-06-27 05:52] LABS: Basophils # (auto) 0.01 K/uL (0-0.2); Basophils % (auto) 0.1 %; Eosinophils # (auto) 0.02 K/uL (0-0.5); Eosinophils % (auto) 0.2 %; Hematocrit (blood only) 39.1 % (42-52); Hemoglobin 13.3 g/dL (14.0-18.0); Immature Granulocytes # (auto) 0.06 K/uL (0.00-0.02); Immature Granulocytes % (auto) 0.5 %; Lymphocytes # (auto) 2.29 K/uL (1.2-3.4); Lymphocytes % (auto) 17.7 %; Mean Corpuscular Hemoglobin 31.4 pg (25-34); Mean Corpuscular Volume 92.2 fL (80-100); Monocytes # (auto) 0.98 K/uL (0.11-0.59); Monocytes % (auto) 7.6 %; Neutrophils # (auto) 9.56 K/uL (1.4-6.5); Neutrophils % (auto) 73.9 %; Platelet Count 329 K/uL (130-400); RDW Coefficient of Variation 13.9 % (11.5-14.5); RDW Standard Deviation 46.7 fL (36.4-46.3); Red Blood Count 4.24 M/uL (4.7-6.1); White Blood Count 12.92 K/uL (4.8-10.8)
[2019-06-27 06:29] LABS: BUN Creatinine Ratio 30.8 (10-20); Calcium 8.3 mg/dl (8.5-10.1); Creatinine Clr Calc Pharmacy 94.4 ml/min; Est GFR (African American) 115.1; Est GFR (Non-African American) 99.3; Potassium 3.6 mmol/L (3.5-5.1)
[2019-06-27] MEDS: QUETIAPINE FUMARATE 100 MG TABLET PO SCH ×2 (07:51→17:31)
[2019-06-27] MEDS: CLOPIDOGREL BISULFATE 75 MG TAB PO SCH (07:51)
[2019-06-27] MEDS: hydroCHLOROthiazide 25 MG TAB PO SCH (07:51)
[2019-06-27] MEDS: lisinopriL 20 MG TAB PO SCH (07:51)
[2019-06-27] MEDS: POTASSIUM CHLORIDE 20 MEQ TABCR PO SCH ×3 (07:52→22:40)
[2019-06-27] MEDS: ATORVASTATIN 40 MG TAB PO SCH (07:52)
[2019-06-27] MEDS: carvediloL 12.5 MG TAB PO SCH ×2 (07:52→22:39)
[2019-06-27] MEDS: LIDOCAINE 5% 1 PATCH TD SCH (07:54)
[2019-06-27] MEDS ORDERED: hydroCHLOROthiazide 25 MG TAB PO STA (09:34)
[2019-06-27] MEDS: predniSONE 20 MG TAB PO SCH (11:15)
[2019-06-27] MEDS: HydrALAZINE 10 MG TAB PO SCH ×3 (13:55→22:39)
--- NOTE | 2019-06-27 22:21 | Hospitalist Progress Note ---
Date of Service June 27, 2019 Assessment & Plan (1) CVA (cerebrovascular accident): Admitted under obs. However switched to admission status due to stroke.. MRI confirmed strokes. Clinical symptoms match MRI findings. consulted neuro and appreciate input. Stop aspirin, and will place on plavix and statin. Ordered carotid imaging and echo cardiogram. Obtained stroke order sets Strokes are small lacunar infarcts and patient has recovered clinically. Will hold discharge due to elevated BP. Will add hydralazine 10 mg PO Q6H. Patient is already on davi inhibitor, beta malik, hctz, CCB. (2) Hypertension: BP is elevated. Added hydralazine. continue amlodipine (added during hospital stay) davi inhibitor and beta malik. Main change today is increasing lisinopril to 20 mg PO daily. Pain from his right shoulder may also be attributing to his elevated BP. (3) Tardive dyskinesia: Patient has history of above condition. Not currently active (4) Paranoid schizophrenia: resumed home meds. appears stable (5) DMII (diabetes mellitus, type 2): No signs of history of this condition (6) Closed right humeral fracture: Closed right humeral fracture Appreciate input. Discussed with ortho. Needs to have this surgically repaired. However, patient did have stroke as described above. Patient will wait 1-2 weeks for surgery. RIsk may not be as large due to only have small lacunar infarcts. Ok to have surgery if urgent. D/W ortho, ok to hold surgery for about a week or 2. (7) Hypokalemia: currently replacing his potassium. Potassium has improved. Admission and Anticipated Discharge Date Admission Date: June 24, 2019 Subjective 68 yo male reports feeling well. He has no new complaints. Review of Systems Review of Systems: All systems reviewed & are unremarkable except as noted in HPI & below Physical Exam Constitutional: WD/WN, vitals as above well developed Eyes: PERRL, conjunctivae normal, anicteric sclerae (convergece is poor on e xamination) ENMT: external ear and nose normal, oropharynx normal Neck: trachea midline, no thyromegaly Respiratory: normal respiratory effort, lungs clear to auscultation Cardiovascular: RRR, no murmur, no edema Gastrointestinal (Abdomen): normal bowel sounds, soft, nontender, no hepatosplenomegaly Musculoskeletal: Head/Neck/Chest: head atraumatic Shoulder: + joint line tenderness (Active ROM is decreased due to pain.) Skin: no rashes, warm and dry Neurologic: patellar DTR's 2+ bilat, sensation intact CN's II-XI intact bilaterally Results & Data ([facility]) Vital Signs (Past 12 Hours) Vital Signs Temp Pulse Pulse Pulse Resp BP BP 06/27/19 19:00 36.6 C 81 18 160/85 H 06/27/19 15:53 36.4 C L 78 20 156/74 H 06/27/19 15:00 79 06/27/19 13:53 143/75 H 06/27/19 12:13 36.5 C 74 20 140/73 Pulse Ox 06/27/19 19:00 93 06/27/19 15:53 94 06/27/19 15:00 06/27/19 13:53 06/27/19 12:13 95 PG Care Time/CCT Total # of Minutes Spent Total Time Spent with Patient: Total time spent is greater than 50% in coordination of care (as documented) at patient's floor/unit and/or counseling patient: Coding Level of Care Code 49685 Subseq Hosp Care Lvl 3 Diagnoses CVA (cerebrovascular accident) I63.9 CVA mechanism: unspecified Hypertension I10 Tardive dyskinesia G24.01 Paranoid schizophrenia F20.0 DMII (diabetes mellitus, type 2) E11.9 Closed right humeral fracture S42.301A Hypokalemia E87.6 Time Spent (min) 35 (1) CVA (cerebrovascular accident) CVA mechanism: unspecified Qualified Code(s): I63.9 - Cerebral infarction, unspecified
[2019-06-27] MEDS: QUETIAPINE FUMARATE 200 MG TAB PO SCH (22:40)
[2019-06-27] MEDS: AMLODIPINE BESYLATE 5 MG TAB PO SCH (22:41)
[2019-06-28] MEDS: HEPARIN SOD 5,000 UNIT/0.5 ML VIAL SQ SCH (05:37)
[2019-06-28] MEDS: HydrALAZINE HCL 20 MG/ML VIAL IV PRN (05:43)
[2019-06-28] MEDS: LIDOCAINE 5% 1 PATCH TD SCH (07:47)
[2019-06-28] MEDS: QUETIAPINE FUMARATE 100 MG TABLET PO SCH (07:48)
[2019-06-28] MEDS: HydrALAZINE 10 MG TAB PO SCH ×2 (07:48→12:14)
[2019-06-28] MEDS: CLOPIDOGREL BISULFATE 75 MG TAB PO SCH (07:48)
[2019-06-28] MEDS: carvediloL 12.5 MG TAB PO SCH (07:48)
[2019-06-28] MEDS: ATORVASTATIN 40 MG TAB PO SCH (07:49)
[2019-06-28] MEDS ORDERED: hydroCHLOROthiazide 25 MG TAB PO SCH (09:00)
[2019-06-28] MEDS ORDERED: STROKE PATIENT DISCHARGE PRN (09:07)
[2019-06-28] MEDS: lisinopriL 20 MG TAB PO SCH (09:18)
[2019-06-28 09:52] LABS: BUN Creatinine Ratio 31.4 (10-20); Calcium 8.6 mg/dl (8.5-10.1); Est GFR (African American) 101.4; Est GFR (Non-African American) 87.5; Potassium 3.3 mmol/L (3.5-5.1)
[2019-06-28] MEDS ORDERED: POTASSIUM CHLORIDE 20 MEQ TABCR PO STA (11:19)
[2019-06-28] MEDS: predniSONE 20 MG TAB PO SCH (12:14)
--- NOTE | 2019-07-04 07:48 | Discharge Summary ---
Date of Service June 28, 2019 Admission HPI Per Admitting Provider 68 yo male is a poor historian. Patient has history of hypertension and diabetes (however he does not appear to be on any medications.) He reports that he may have noticed some weakness on his left side before going to bed on 06/23/19 at 22:00. However he had stated to the ER that this was his last known time in which he was well. Patient awoke this AM and noticed worsenening of his weakness of his left hand and lower leg. He states he was unable to get out of bed. He states he is unable to lift up a napkin with his left hand. He also notices some weakness in his left lower leg. He also states he has numbness in his left hand. He also noticed difficulty speaking and decided to come to the ER. Principal Diagnosis CVA Discharge Exam Constitutional: WD/WN, vitals as above well developed Eyes: PERRL, conjunctivae normal, anicteric sclerae (convergece is poor on examination) ENMT: external ear and nose normal, oropharynx normal Neck: trachea midline, no thyromegaly Respiratory: normal respiratory effort, lungs clear to auscultation Cardiovascular: RRR, no murmur, no edema Gastrointestinal (Abdomen): normal bowel sounds, soft, nontender, no hepatosplenomegaly Musculoskeletal: Head/Neck/Chest: head atraumatic Shoulder: + joint line tenderness (Active ROM is decreased due to pain.) Skin: no rashes, warm and dry Neurologic: patellar DTR's 2+ bilat, sensation intact CN's II-XI intact bilaterally Discharge Data Allergies Allergy/AdvReac Type Severity Reaction Status Date / Time Sulfa (Sulfonamide Allergy Intermediate SWELLING, Verified 07/01/19 12:41 Antibiotics) REDNESS Consultations 06/24/19 07:59 ED Decision to Admit Stat 06/24/19 08:35 ED Decision to Admit Stat 06/24/19 11:21 Consult Case Management - Discharge Planning Routine Consult Neurology Routine 06/25/19 14:33 Consult Orthopedic Surgery Routine Ordered Studies 06/24/19 06:41 CT head/brain wo con Stat 06/24/19 06:42 CT angio head w con Stat CT angio neck with con Stat 06/24/19 11:21 MR brain wo con Routine 06/26/19 10:15 CT shoulder RT wo con Routine Hospital Course (1) CVA (cerebrovascular accident): Admitted under obs. However switched to admission status due to stroke.. MRI confirmed strokes. Clinical symptoms match MRI findings. consulted neuro and appreciate input. Stop aspirin, and will place on plavix and statin. Ordered carotid imaging and echo cardiogram. Obtained stroke order sets Strokes are small lacunar infarcts and patient has recovered clinically. BP improved on day of discharge as hydralazine 10 mg PO Q6H was added. May need to taper up after discharge. Patient is already on davi inhibitor, beta malik, hctz, CCB. (2) Hypertension: BP is elevated. Added hydralazine. continue amlodipine (added during hospital stay) davi inhibitor and beta malik. Main change today is increasing lisinopril to 20 mg PO daily. Pain from his right shoulder may also be attributing to his elevated BP. (3) Tardive dyskinesia: Patient has history of above condition. Not currently active (4) Paranoid schizophrenia: resumed home meds. appears stable (5) DMII (diabetes mellitus, type 2): No signs of history of this condition (6) Closed right humeral fracture: Closed right humeral fracture Appreciate input. Discussed with ortho. Needs to have this surgically repaired. However, patient did have stroke as described above. Patient will wait 1-2 weeks for surgery. RIsk may not be as large due to only have small lacunar infarcts. Ok to have surgery if urgent. D/W ortho, ok to hold surgery for about a week or 2. (7) Hypokalemia: currently replacing his potassium. Potassium has improved. Total Time Total Time Spent Total Time Spent (In Minutes): 32 Total Time Includes: Examination of the Patient, Discharge Planning and Medication Reconciliation Discharge Plan Discharge Items Patient Disposition: [facility] Facility Reason For Visit: STROKE SYMPTOMS Discharge Diagnosis: Stroke Symptoms Activity: Resume your previous activity Non-emergency contact: Primary Care Provider Call non-emergency contact if: you have any medication questions Follow-up/Referrals: [facility] [Primary Care Provider] - Diet: Heart Healthy Addtl Attending Provider Instructions: You have been hospitalized for an acute medical problem. During your stay at [facility], we have made an effort to correct the problem that brought you to the hospital while keeping you as comfortable as possible. Medications were used to bring your condition under control and your discharge instructions will include directions for any medications you should take after leaving the hospital. Please make sure you see your Primary Care Provider as part of your follow up plan. Recommend to followup with Dr. Michael for followup of your shoulder in 1-2 weeks. Address: [address] [place] [id number] Have [facility] set you up with a PCP in 1-2 weeks. You may need surgery for your shoulder fracture. Sling was given for support. Recommend rechecking BMP in 1-2 weeks. If blood pressure remains high in 2 days June 29, may increase Hydralazine to 25 mg PO 4 times a day. Risk Factors for Stroke: You can reduce your chances of stroke by working with your medical provider to adopt a healthy lifestyle. Some specific ways to lower your chance of stroke are: * If you are a smoker, now is the time to stop smoking cigarettes * If you are diabetic, improve the control of your blood sugars * Avoid excessive amounts of alcohol * Control high blood pressure * Lose weight if you are overweight * Be sure to lead an active lifestyle * Eat a healthy diet low in salt, cholesterol and fat You should know about other risk factors for stroke that you are unable to control. These include: * Age 55 years or older * Male gender * Certain racial groups: , or / * Family History of Stroke, Mini stroke or Heart Attack * Sickle Cell Disease Follow Up: It is important for you to keep your follow up appointments with your medical provider. Who to Call and When: Medical Emergencies: Call 911 immediately if you experience any of the following warning signs and symptoms of Stroke: * Sudden numbness or weakness of the face, arm or leg, especially on one side of the body * Sudden confusion, trouble speaking or understanding * Sudden trouble seeing in one or both eyes * Sudden trouble walking, dizziness, loss of balance or coordination * Sudden severe headache with no cause Do not delay calling 911 if you experience any warning signs or symptoms of a stroke. Delay in seeking medical attention may affect what treatments can be given to you. Pending Studies at Discharge: No Stand-Alone Forms: My [facility] [employer] Skilled Items Patient informed of condition?: No Discharge Level of Care: Other Communicable Disease: No Discharge Prognosis: Stable Lines: None Urinary Catheter: No Medications and DC Order Prescriptions: New atorvastatin 40 mg Tablet 40 mg PO QAM Qty: 30 RF: 0 lisinopril 20 mg Tablet 20 mg PO QAM 30 Days Qty: 30 RF: 0 clopidogrel 75 mg Tablet 75 mg PO QAM Qty: 30 RF: 0 hydrochlorothiazide 25 mg Tablet 25 mg PO QAM Qty: 30 RF: 0 potassium chloride 10 mEq tablet extended release 10 meq PO DAILY Qty: 14 RF: 0 Continued carvedilol 25 mg tablet 12.5 mg PO BID RF: 0 quetiapine [Seroquel] 200 mg Tablet 200 mg PO HS Qty: 30 RF: 0 quetiapine 100 mg tablet 100 mg PO BIDM RF: 0 Discontinued lisinopril 10 mg tablet 10 mg PO QAM RF: 0 prednisone 10 mg Tablet 10 mg PO .TAPER RF: 0 hydrochlorothiazide 12.5 mg Tablet 12.5 mg PO QAM RF: 0 No Action prednisone 10 mg tablet 10 mg PO DAILY RF: 0 amlodipine 5 mg tablet 5 mg PO HS RF: 0 hydralazine 25 mg tablet 25 mg PO BID Qty: 60 RF: 0 Discharge Orders: Discharge Order (Routine); Ordered 06/28/19 Ordered By: Simeon Rosa/Other Patient Handouts: A1C Admission Data Admit Date/Time: 06/24/19 22:22 Attending Provider: Simeon Presley Admit Provider: Simeon Presley Primary Care Provider: [facility] Other Providers: Uriah Mendez ; Luis Bernal Other Interventions: Discharge Summary Assessment (RN) Last Done: 06/28/19 11:40 DC Date/Time DO NOT enter until pt leaves facility: 06/28/19 14:36 Coding Level of Care Code D/C Day Management >30 mins Diagnoses CVA (cerebrovascular accident) I63.9 CVA mechanism: unspecified Hypertension I10 Tardive dyskinesia G24.01 Paranoid schizophrenia F20.0 DMII (diabetes mellitus, type 2) E11.9 Closed right humeral fracture S42.301A Hypokalemia E87.6 Time Spent (min) 32
== END 2019-06-28 14:36 | DRG 65 ==
LOC: ED 06:41 → 2N 06:41

== ENCOUNTER 2019-07-01 11:19 | Inpatient (IN) ==
[2019-07-01 13:21] LABS: Appearance Urine Clear (Clear); Bilirubin Urine Negative (Negative); Blood Urine Negative (Negative); Color Urine Yellow; Glucose Urine UA 1+ (Negative); Ketones Urine Negative (Negative); Leukocyte Esterase Urine Negative (Negative); Nitrite Urine Negative (Negative); Protein Urine Negative (Negative); Specific Gravity Urine 1.015 (1.000-1.030); Urobilinogen Urine Negative (Negative)
[2019-07-01 13:47] LABS: Amphetamines+Metham, Urine Neg (Neg); Barbiturates, Urine Neg (Neg); Benzodiazepine, Urine Neg (Neg); Cocaine, Urine Neg (Neg); MDMA (Ecstacy), Urine Neg (Neg); Methadone, Urine Neg (Neg); Opiate, Urine Neg (Neg); Phencyclidine, Urine Neg (Neg)
[2019-07-01 13:47] LABS: Basophils # (auto) 0.01 K/uL (0-0.2); Basophils % (auto) 0.1 %; Eosinophils # (auto) 0.02 K/uL (0-0.5); Eosinophils % (auto) 0.1 %; Hematocrit (blood only) 42.4 % (42-52); Hemoglobin 14.5 g/dL (14.0-18.0); Immature Granulocytes # (auto) 0.07 K/uL (0.00-0.02); Immature Granulocytes % (auto) 0.5 %; Lymphocytes # (auto) 1.48 K/uL (1.2-3.4); Lymphocytes % (auto) 10.5 %; Mean Corpuscular Hemoglobin 31.4 pg (25-34); Mean Corpuscular Hgb Conc 34.2 g/dL (32-36); Mean Corpuscular Volume 91.8 fL (80-100); Mean Platelet Volume 10.8 fL (7.4-10.4); Monocytes # (auto) 0.78 K/uL (0.11-0.59); Monocytes % (auto) 5.5 %; Neutrophils # (auto) 11.79 K/uL (1.4-6.5); Neutrophils % (auto) 83.3 %; Platelet Count 352 K/uL (130-400); RDW Coefficient of Variation 13.9 % (11.5-14.5); RDW Standard Deviation 46.8 fL (36.4-46.3); Red Blood Count 4.62 M/uL (4.7-6.1); White Blood Count 14.15 K/uL (4.8-10.8)
[2019-07-01 13:54] LABS: Partial Thromboplastin Time 26.3 Seconds (21.0-31.0); Prothrombin Time 10.2 Seconds (9.0-12.0)
[2019-07-01 14:04] LABS: Albumin Level 3.1 gm/dl (3.4-5.0); BUN Creatinine Ratio 24.7 (10-20); Creatinine Clr Calc Pharmacy 89.6 ml/min; Est GFR (African American) 111.1; Est GFR (Non-African American) 95.9; Magnesium 2.2 mg/dl (1.8-2.4); Potassium 3.6 mmol/L (3.5-5.1)
[2019-07-01 14:15] LABS: Albumin Globulin Ratio 0.7 (0.9-2); Bilirubin,Total 0.3 mg/dl (0.2-1); Globulin 4.4 gm/dl (2.5-4.0); Thyroid Stimulating Hormone 0.318 uIu/ml (0.300-4.500); Total Protein 7.6 gm/dl (6.4-8.2); Troponin I 0.026 ng/ml (0-0.045)
--- NOTE | 2019-07-01 14:22 | CT Scan Report ---
CT head/brain wo con CLINICAL HISTORY: 68 years-old Male presenting with Stroke evaluation , slurred speech, recent microi nfarcts. TECHNIQUE: Multidetector CT imaging of the head was performed without the use of intravenous contrast . IV contrast: None. One or more dose lowering techniques were used consistent with the principles of ALARA (as low as reasonably achievable), including automatic exposure control, mA or kV adjustment t o individual patient size, and/or use of iterative reconstruction. COMPARISON: Noncontrast CT head and brain MR from 06/24/2019. CT DOSE (mGy.cm): The estimated cumulative dose is 614.27 mGy.cm. FINDINGS: Scanner Operator topogram: Unremarkable. Proportional ventricular and sulcal prominence, likely age-related parenchymal volume loss. No hemorr demetrice. Periventricular and subcortical white matter hypoattenuation, nonspecific but likely indicative of chronic small vessel ischemic change. Old lacunar infarct in the left basal ganglia/periventricul ar white matter. The recent acute lacunar infarcts in the bilateral thalami are not evident on this e xam. Focus of calcification in the right frontal lobe unchanged. No acute territorial infarct. No mas s effect or midline shift. No extra-axial fluid collection. Opacification of the left maxillary sinus . Calvarium intact. IMPRESSION: 1. Chronic small vessel ischemic change and old lacunar infarct in the left basal ganglia/periventri cular white matter. The recent acute lacunar infarcts in the bilateral thalami are not evident on thi s exam. No acute intracranial abnormality. 2. Nonspecific opacification of the left maxillary sinus. Correlate clinically to exclude acute sinu sitis. ACT 112: Negative or not required by law. Electronically signed by: Jony Chen M.D. 07/01/2019 2:20 PM
[2019-07-01] MEDS ORDERED: STAT IV Infusion **Titration per Protocol STA (15:12)
[2019-07-01] MEDS ORDERED: FENTANYL BOLUS FROM BAG IV PRN (15:12)
[2019-07-01] MEDS ORDERED: fentaNYL citrate 100 MCG/2 ML VIAL IV STA (15:12)
[2019-07-01] MEDS ORDERED: fentaNYL DRIP 1,250 MCG/250 ML BAG IV SCH (15:15)
--- NOTE | 2019-07-01 16:33 | Electrocardiogram Report ---
Test Reason : Blood Pressure : / mmHG Vent. Rate : 064 BPM Atrial Rate : 064 BPM P-R Int : 142 ms QRS Dur : 122 ms QT Int : 446 ms P-R-T Axes : 055 -37 092 degrees QTc Int : 460 ms Normal sinus rhythm Possible Left atrial enlargement Left axis deviation Left ventricular hypertrophy with QRS widening and repolarization abnormality Anterior infarct (cited on or before 01-JUL-2019) Abnormal ECG When compared with ECG of 24-JUN-2019 07:23, Serial changes of Anterior infarct Present Confirmed by Domo cMkeon ([id number]) on 07/01/2019 4:33:13 PM Referred By: [facility] Confirmed By:Domo Mckeon
--- NOTE | 2019-07-01 17:31 | History & Physical Report ---
Date of Service July 01, 2019 Assessment & Plan (1) Transient ischemic attack: Admit to PCU on telemetry, Vital signs every 4 hours, Follow the stroke protocol without TPA, Brain MRI Troponin x3 Consider consulting neurology in a.m. Continue atorvastatin 40 mg p.o. every morning, Continue clopidogrel 75 mg p.o. every morning Continue monitoring blood pressure with lisinopril 20 mg p.o. every morning and carvedilol 12.5 mg p.o. twice daily. Continue amlodipine 5 mg p.o. nightly Continue potassium chloride 10 mg p.o. daily Continue hydro-chlorothiazide 25 mg p.o. every morning Continue hydralazine 10 mg p.o. 4 times daily DVT prophylaxis Lovenox 40 mg subcu daily Physical and Occupational Therapy Speech therapy Full code Present on Admission?: Yes (2) Hypokalemia: Replenish potassium in the ER Continue monitoring Present on Admission?: Yes (3) Closed right humeral fracture: Started baclofen 5 mg 3 times daily for muscle spasm. Ultrasound of the right upper extremity pending, pain is possible due to deep venous thrombosis, will rule out with ultrasound. Present on Admission?: Yes (4) CVA (cerebrovascular accident): As discussed above Present on Admission?: Yes (5) Hypertension: Continue monitoring, and continue medication as discussed above Present on Admission?: Yes (6) DMII (diabetes mellitus, type 2): Glycemic control per pharmacy, Accu-Cheks before meals and at bedtime, sliding scale insulin if needed Hemoglobin A1c pending Present on Admission?: Yes (7) Paranoid schizophrenia: Stable, continue Seroquel 100 mg p.o. twice daily and 200 mg p.o. nightly. Present on Admission?: Yes History of Present Illness Chief Complaint: Slurred speech Primary Care Provider: [facility] The patient is a 68 years old male with past medical history of recent CVA, proximal humerus fracture, paresthesias, former smoker, hypertension, diabetes mellitus type 2, who presents to the emergency room with a complaint of slurred speech that comes and goes. Patient reports [id number] throughout his body including his left leg back and chest. Patient reports that his right leg feels fine. Patient complains of blurry vision and slurred speech. Patient noted having slurred speech few days ago. 1 week ago patient had CVA. Patient denies fever, chills, chest pain, shortness of breath, abdominal pain, frequency, urgency. June 25 patient had echocardiogram done that shows severe concentric left ventricular hypertrophy. Left ventricular systolic function is normal. Aortic valve sclerosis moderate, without significant aortic valvular stenosis. Right ventricular systolic pressure is elevated at 30 to 40 mmHg. Injection of contrast documented no intra-arterial shunt. Labs are reviewed which shows WBCs of 14.15, hemoglobin 14.5, hematocrit 42.4, platelets 352, PT 10.2, INR 1, APTT 27.5, sodium 133, potassium 3.6, chloride 97, carbon dioxide 29, anion gap 6, BUN 18, creatinine 0.72, GFR 95.9, troponin initial 0.0 26, repeated 0.015, TSH 0.318. Urine shows trace glucose otherwise negative. MRSA smear negative. Negative drug screen. MRI of the brain done and shows slight increase in signal on diffusion of a subcortical infarct left superior parietal lobe this appears to represent a slight increase in progression compared to the prior study. All remaining components of the study are unchanged. Normal evolutionary changes and microinfarcts of the periventricular region as previously described. Right shoulder CT shows displaced Hill-Sachs fracture with a corresponding nondisplaced bony Bankart lesion/fracture consistent with a prior right shoulder dislocation. Small to moderate joint effusion. Decision was made to admit patient to rule out possible transient ischemic attack versus a new stroke. Allergies Allergy/AdvReac Type Severity Reaction Status Date / Time Sulfa (Sulfonamide Allergy Intermediate SWELLING, Verified 07/01/19 12:41 Antibiotics) REDNESS Home Medications Home Medications Medication Instructions Recorded Confirmed Type carvedilol 12.5 mg PO BID 12/06/18 07/01/19 History quetiapine [Seroquel] 200 mg PO HS #30 tab 12/13/18 07/01/19 Rx quetiapine 100 mg PO BIDM 06/24/19 07/01/19 History atorvastatin 40 mg PO QAM #30 tab 06/28/19 07/01/19 Rx clopidogrel 75 mg PO QAM #30 tab 06/28/19 07/01/19 Rx hydralazine 10 mg PO QID #30 tab 06/28/19 07/01/19 Rx hydrochlorothiazide 25 mg PO QAM #30 tab 06/28/19 07/01/19 Rx lisinopril 20 mg PO QAM 30 Days #30 tab 06/28/19 07/01/19 Rx potassium chloride 10 meq PO DAILY #14 tab 06/28/19 07/01/19 Rx amlodipine 5 mg PO HS 07/01/19 07/01/19 History prednisone 10 mg PO DAILY 07/01/19 07/01/19 History Past Med/Surg History Medical History Anxiety CVA (cerebrovascular accident) (Acute) DMII (diabetes mellitus, type 2) DVT prophylaxis Hypertension Paranoid schizophrenia Smoker Suicidal ideation Tardive dyskinesia Surgical History No pertinent past surgical history Family History Father Alcoholism /alcohol abuse Other No significant family history Social History Preferred Language: Croatian Communication Ability: Effective 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 Beliefs That Will Affect Care: None marital status: Life Partner Current Living Situation: Legal Guardian Other Information That Helps Us Care for You: No Feels Safe at Home: Yes Safety Concerns: Feels Safe At This Time Smoking Status: Current some day smoker Tobacco Type: cigarettes ; Cigarettes Per Day: 20 ; Do You Dip or Chew Tobacco: No ; Second Hand Exposure: No ; Hx Alcohol Use: No Hx Substance Use: Yes substance use type: marijuana and other Substance Use Ty pe Other:: history of marijuana use Review of Systems Review of Systems: All systems reviewed & are unremarkable except as noted in HPI & below Physical Exam Constitutional: WD/WN, vitals as above + cachectic Eyes: PERRL, conjunctivae normal, anicteric sclerae ENMT: external ear and nose normal, oropharynx normal Neck: trachea midline, no thyromegaly Respiratory: normal respiratory effort, lungs clear to auscultation Cardiovascular: Heart Sounds: normal S1 and normal S2 Palpation: + palpable S3 Vessels: + JVD and dorsalis pedis pulses present Gastrointestinal (Abdomen): normal bowel sounds, soft, nontender, no hepatosplenomegaly Musculoskeletal: no cyanosis or clubbing, extremities motor strength 5/5 Right upper extremity is in sling status post nondisplaced fracture Skin: no rashes, warm and dry Neurologic: patellar DTR's 2+ bilat, sensation intact Lymphatic: no cervical or axillary lymphadenopathy Results & Data Vital Signs (Past 12 Hours) Vital Signs Temp Pulse Pulse Resp BP BP Pulse Ox 07/01/19 17:16 66 16 169/103 H 97 07/01/19 16:31 67 20 156/102 H 94 07/01/19 14:30 62 23 158/97 H 07/01/19 14:01 64 29 H 07/01/19 14:00 65 22 152/103 H 07/01/19 13:31 65 67 34 H 154/97 H 154/97 H 98 07/01/19 13:26 65 20 07/01/19 13:00 65 23 150/94 H 07/01/19 11:31 95 07/01/19 11:12 36.8 C 68 17 145/89 H 99 Code Status & VTE Plan Code Status Full code VTE Prophylaxis Plan VTE Prophylaxis will be ordered: Yes PG Care Time/CCT Total # of Minutes Spent Total Time Spent with Patient: Total time spent is greater than 50% in coordination of care (as documented) at patient's floor/unit and/or counseling patient: Coding Level of Care Code 73854 Initial Inpt Care Lvl 3 Diagnoses Transient ischemic attack G45.9 Hypokalemia E87.6 Closed right humeral fracture S42.301A CVA (cerebrovascular accident) I63.9 CVA mechanism: unspecified Hypertension I10 DMII (diabetes mellitus, type 2) E11.9 Paranoid schizophrenia F20.0 (1) CVA (cerebrovascular accident) CVA mechanism: unspecified Qualified Code(s): I63.9 - Cerebral infarction, unspecified
[2019-07-01] MEDS ORDERED: POLYETHYLENE (MIRALAX) 17 GM PACK PO PRN (18:22)
[2019-07-01] MEDS ORDERED: PHARMACIST DISCHARGE MED REC CONSULT PRN (18:22)
[2019-07-01] MEDS ORDERED: ALUMINUM/MAGNESIUM SUSP 30 ML UDC PO PRN (18:22)
[2019-07-01] MEDS ORDERED: ACETAMINOPHEN 325 MG TAB PO PRN (18:22)
[2019-07-01] MEDS ORDERED: ONDANSETRON INJ 2 MG/ML 2 ML VIAL IV PRN (18:22)
--- NOTE | 2019-07-01 18:23 | Emergency Department Note ---
Entered by Cyrus Pennington acting as a scribe for History of Present Illness General Chief complaint: Neuro Symptoms/Deficit Time Seen by Provider: 07/01/19 12:49 Source: patient History of Present Illness Onset (ago): day(s) (a few days ago) Location: head Pain Consistency: + constant Maximum Pain Intensity: 5 Quality: + other (neuro symptoms) Associated symptoms: + other (Positive for "pins and needles" in his left leg, chest, and back, as well as blurry vision and slurred speech. Negative for headaches and abdominal pain.) The patient is a 68 year old male who presents to the emergency department with complaints of constant neuro symptoms beginning a few days ago. The patient states that he was in the emergency department last week for several small strokes. He notes that he also broke his right arm at that time. He reports that he has pins and needles throughout his body, including his left leg, back, and chest. The patient states that his right leg feels fine. He also complains of blurry vision and slurred speech. He notes that he has had slurred speech for the last few days. He denies any headaches, abdominal pain, and recent injuries. He notes that he takes Plavix. Home Medications Home Medications Medication Instructions Recorded Confirmed Type carvedilol 12.5 mg PO BID 12/06/18 07/01/19 History quetiapine [Seroquel] 200 mg PO HS #30 tab 12/13/18 07/01/19 Rx quetiapine 100 mg PO BIDM 06/24/19 07/01/19 History atorvastatin 40 mg PO QAM #30 tab 06/28/19 07/01/19 Rx clopidogrel 75 mg PO QAM #30 tab 06/28/19 07/01/19 Rx hydralazine 10 mg PO QID #30 tab 06/28/19 07/01/19 Rx hydrochlorothiazide 25 mg PO QAM #30 tab 06/28/19 07/01/19 Rx lisinopril 20 mg PO QAM 30 Days #30 tab 06/28/19 07/01/19 Rx potassium chloride 10 meq PO DAILY #14 tab 06/28/19 07/01/19 Rx amlodipine 5 mg PO HS 07/01/19 07/01/19 History prednisone 10 mg PO DAILY 03/03/20 03/03/20 History Allergies Allergy/AdvReac Type Severity Reaction Status Date / Time Sulfa (Sulfonamide Allergy Intermediate SWELLING, Verified 07/01/19 12:41 Antibiotics) REDNESS Past Med/Surg History Social History Preferred Language: Surinamese Communication Ability: Effective [employer] Required: No Beliefs That Will Affect Care: None marital status: Life Partner Current Living Situation: Legal Guardian Other Information That Helps Us Care for You: No Feels Safe at Home: Yes Safety Concerns: Feels Safe At This Time Smoking Status: Current some day smoker Tobacco Type: cigarettes ; Cigarettes Per Day: 20 ; Do You Dip or Chew Tobacco: No ; Second Hand Exposure: No ; Hx Alcohol Use: No Hx Substance Use: Yes substance use type: marijuana and other Substance Use Type Other:: history of marijuana use Review of Systems See HPI for pertinent positives & negatives. and A total of 10 systems reviewed and were otherwise negative Physical Exam Vital Signs Vital Signs - 24 hr 07/01/19 11:12 07/01/19 11:31 07/01/19 13:00 Temperature 36.8 C Temperature Source Oral Pulse Rate 68 65 Pulse Rate [Apical] Pulse Rate from SpO2 Sensor Respiratory Rate 17 23 Respiratory Effort / Characteristics Blood Pressure 145/89 H 150/94 H Blood Pressure [Left Arm] Blood Pressure Mean 107 102 Blood Pressure Mean [Left Arm] Blood Pressure Position [Left Arm] Pulse Oximetry 99 95 Oxygen Delivery Method Room Air Room Air Sepsis Recent Fever Within 48 Hours No Sepsis Action Taken by Nursing No Action Required 07/01/19 13:26 07/01/19 13:31 07/01/19 14:00 Temperature Temperature Source Pulse Rate 65 65 65 Pulse Rate [Apical] 67 Pulse Rate from SpO2 Sensor Respiratory Rate 20 34 H 22 Respiratory Effort / Characteristics Blood Pressure 154/97 H 152/103 H Blood Pressure [Left Arm] 154/97 H Blood Pressure Mean 111 116 Blood Pressure Mean [Left Arm] 116 Blood Pressure Position [Left Arm] Sitting Pulse Oximetry 98 Oxygen Delivery Method Sepsis Recent Fever Within 48 Hours Sepsis Action Taken by Nursing 07/01/19 14:01 07/01/19 14:30 07/01/19 14:31 Temperature Temperature Source Pulse Rate 64 62 63 Pulse Rate [Apical] Pulse Rate from SpO2 Sensor Respiratory Rate 29 H 23 23 Respiratory Effort / Characteristics Blood Pressure 158/97 H Blood Pressure [Left Arm] Blood Pressure Mean 104 Blood Pressure Mean [Left Arm] Blood Pressure Position [Left Arm] Pulse Oximetry Oxygen Delivery Method Sepsis Recent Fever Within 48 Hours Sepsis Action Taken by Nursing 07/01/19 15:00 07/01/19 15:01 07/01/19 15:30 Temperature Temperature Source Pulse Rate 65 66 63 Pulse Rate [Apical] Pulse Rate from SpO2 Sensor Respiratory Rate 27 H 21 28 H Respiratory Effort / Characteristics Blood Pressure 113/92 169/101 H Blood Pressure [Left Arm] Blood Pressure Mean 100 117 Blood Pressure Mean [Left Arm] Blood Pressure Position [Left Arm] Pulse Oximetry Oxygen Delivery Method Sepsis Recent Fever Within 48 Hours Sepsis Action Taken by Nursing 07/01/19 16:00 07/01/19 16:31 07/01/19 17:00 Temperature Temperature Source Pulse Rate 65 72 70 Pulse Rate [Apical] 67 Pulse Rate from SpO2 Sensor Respiratory Rate 30 H 23 20 Respiratory Effort / Characteristics Spontaneous Blood Pressure 137/106 H 156/102 H Blood Pressure [Left Arm] 156/102 H Blood Pressure Mean 110 132 Blood Pressure Mean [Left Arm] 120 Blood Pressure Position [Left Arm] Lying Pulse Oximetry 94 Oxygen Delivery Method Sepsis Recent Fever Within 48 Hours Sepsis Action Taken by Nursing 07/01/19 17:01 07/01/19 17:07 07/01/19 17:16 Temperature Temperature Source Pulse Rate 68 63 66 Pulse Rate [Apical] 66 Pulse Rate from SpO2 Sensor 62 66 Respiratory Rate 30 H 20 16 Respiratory Effort / Characteristics Non-Labored Spontaneous Blood Pressure 181/105 H 180/108 H 180/111 H Blood Pressure [Left Arm] 169/103 H Blood Pressure Mean 111 120 126 Blood Pressure Mean [Left Arm] 125 Blood Pressure Position [Left Arm] Lying Pulse Oximetry 97 98 Oxygen Delivery Method Room Air Sepsis Recent Fever Within 48 Hours Sepsis Action Taken by Nursing 07/01/19 17:18 07/01/19 17:30 Temperature Temperature Source Pulse Rate 63 63 Pulse Rate [Apical] Pulse Rate from SpO2 Sensor 64 64 Respiratory Rate 12 18 Respiratory Effort / Characteristics Blood Pressure 169/103 H 163/106 H Blood Pressure [Left Arm] Blood Pressure Mean 117 117 Blood Pressure Mean [Left Arm] Blood Pressure Position [Left Arm] Pulse Oximetry 96 95 Oxygen Delivery Method Sepsis Recent Fever Within 48 Hours Sepsis Action Taken by Nursing GENERAL: Awake, alert, well-appearing, in no distress HENT: Normocephalic, atraumatic. EYES: Normal conjunctiva. Sclera non-icteric. RESPIRATORY: Clear to auscultation. No wheezes. Normal respiratory effort. CARDIAC: Normal rate. Normal rhythm. Extremities warm and well perfused. GI: Soft, non-distended. No tenderness to palpation. No rebound or guarding. MUSCULOSKELETAL: Atraumatic. Chest examination reveals no tenderness. UPPER EXTREMITIES: Right upper arm in sling, NVI to the bilateral hands. LOWER EXTREMITIES: Calves are equal size bilaterally and non-tender. No edema NEURO: No gross motor deficits noted although RUE in sling limits exam. No pronator drift LUE. No facial droop. Slurred speech. No aphasia. Paresthesia to the lower extremities, intact sensation to gross touch in the lower extremities. SKIN: Warm and dry. No rash or jaundice noted. Course Course 1301: The patient was evaluated in room C7. A complete history and physical exam was performed. 1511: Upon reevaluation, the patient is stable. I discussed the findings and the treatment plan with the patient. He expresses agreement and understanding. EDMOND Palomo, was made aware of the patient. The patient will be evaluated for further management. Consultations Consultation #1: EDMOND Palomo, was made aware of the patient. [] will be evaluated for further management. Time: 15:11 Medical Decision Making Differential Diagnosis Differential diagnoses includes but is not limited to toxic, metabolic, infectious, traumatic, cardiac, neurologic, hematologic, psychiatric and inflammatory etiologies. Medical Records Attestation: I reviewed the patient's medical records. Home Medications Current Medication List: was personally reviewed by me Laboratory Data Attestation: I reviewed the patient's lab results. Result diagrams: 07/01/19 13:34 07/01/19 13:33 Lab Results 07/01/19 07/01/19 07/01/19 Range/Units 12:05 12:05 13:33 WBC (4.8-10.8) K/uL RBC (4.7-6.1) M/uL Hgb (14.0-18.0) g/dL Hct (42-52) % MCV (80-100) fL MCH (25-34) pg MCHC (32-36) g/dL RDW Std Deviation (36.4-46.3) fL RDW Coeff of Jerome (11.5-14.5) % Plt Count (130-400) K/uL MPV (7.4-10.4) fL Immature Gran % (Auto) % Neut % (Auto) % Lymph % (Auto) % [place] % (Auto) % Eos % (Auto) % Baso % (Auto) % Immature Gran # (Auto) (0.00-0.02) K/uL Neut # (Auto) (1.4-6.5) K/uL Lymph # (Auto) (1.2-3.4) K/uL [place] # (Auto) (0.11-0.59) K/uL Eos # (Auto) (0-0.5) K/uL Baso # (Auto) (0-0.2) K/uL PT 10.2 (9.0-12.0) Seconds INR 1.0 (0.9-1.1) APTT 26.3 (21.0-31.0) Seconds PTT Ratio 1.0 Sodium (136-145) mmol/L Potassium (3.5-5.1) mmol/L Chloride (98-107) mmol/L Carbon Dioxide (21-32) mmol/L Anion Gap (3-11) BUN (7-18) mg/dl Creatinine (0.6-1.4) mg/dl Est Cr Clr Drug Dosing ml/min Est GFR ( Amer) Est GFR (Non-Af Amer) BUN/Creatinine Ratio (10-20) Glucose (70-99) mg/dl Calcium (8.5-10.1) mg/dl Magnesium (1.8-2.4) mg/dl Total Bilirubin (0.2-1) mg/dl AST (15-37) U/L ALT (12-78) U/L Alkaline Phosphatase (45-117) U/L Troponin I (0-0.045) ng/ml Total Protein (6.4-8.2) gm/dl Albumin (3.4-5.0) gm/dl Globulin (2.5-4.0) gm/dl Albumin/Globulin Ratio (0.9-2) TSH (0.300-4.500) uIu/ml Urine Color Yellow Urine Appearance Clear (Clear) Urine pH 7.0 (4.5-7.5) Ur Specific Verner 1.015 (1.000-1.030) Urine Protein Negative (Negative) Urine Glucose (UA) 1+ H (Negative) Urine Ketones Negative (Negative) Urine Blood Negative (Negative) Urine Nitrite Negative (Negative) Urine Bilirubin Negative (Negative) Urine Urobilinogen Negative (Negative) Ur Leukocyte Esterase Negative (Negative) Urine Opiates Screen Neg (Neg) Ur Methadone, Qual Neg (Neg) Urine Barbiturates Neg (Neg) Ur Phencyclidine (PCP) Neg (Neg) U Amphetamin/Meth Scrn Neg (Neg) MDMA (Ecstasy) Screen Neg (Neg) U Benzodiazepines Scrn Neg (Neg) Ur Cocaine Metabolite Neg (Neg) U Marijuana (THC) Screen Neg (Neg) 07/01/19 07/01/19 Range/Units 13:33 13:34 WBC 14.15 H (4.8-10.8) K/uL RBC 4.62 L (4.7-6.1) M/uL Hgb 14.5 (14.0-18.0) g/dL Hct 42.4 (42-52) % MCV 91.8 (80-100) fL MCH 31.4 (25-34) pg MCHC 34.2 (32-36) g/dL RDW Std Deviation 46.8 H (36.4-46.3) fL RDW Coeff of Jerome 13.9 (11.5-14.5) % Plt Count 352 (130-400) K/uL MPV 10.8 H (7.4-10.4) fL Immature Gran % (Auto) 0.5 % Neut % (Auto) 83.3 % Lymph % (Auto) 10.5 % [place] % (Auto) 5.5 % Eos % (Auto) 0.1 % Baso % (Auto) 0.1 % Immature Gran # (Auto) 0.07 H (0.00-0.02) K/uL Neut # (Auto) 11.79 H (1.4-6.5) K/uL Lymph # (Auto) 1.48 (1.2-3.4) K/uL [place] # (Auto) 0.78 H (0.11-0.59) K/uL Eos # (Auto) 0.02 (0-0.5) K/uL Baso # (Auto) 0.01 (0-0.2) K/uL PT (9.0-12.0) Seconds INR (0.9-1.1) APTT (21.0-31.0) Seconds PTT Ratio Sodium 133 L (136-145) mmol/L Potassium 3.6 (3.5-5.1) mmol/L Chloride 97 L (98-107) mmol/L Carbon Dioxide 29 (21-32) mmol/L Anion Gap 6.0 (3-11) BUN 18 (7-18) mg/dl Creatinine 0.72 (0.6-1.4) mg/dl Est Cr Clr Drug Dosing 89.6 ml/min Est GFR ( Amer) 111.1 Est GFR (Non-Af Amer) 95.9 BUN/Creatinine Ratio 24.7 H (10-20) Glucose 117 H (70-99) mg/dl Calcium 9.0 (8.5-10.1) mg/dl Magnesium 2.2 (1.8-2.4) mg/dl Total Bilirubin 0.3 (0.2-1) mg/dl AST 10 L (15-37) U/L ALT 20 (12-78) U/L Alkaline Phosphatase 116 (45-117) U/L Troponin I 0.026 (0-0.045) ng/ml Total Protein 7.6 (6.4-8.2) gm/dl Albumin 3.1 L (3.4-5.0) gm/dl Globulin 4.4 H (2.5-4.0) gm/dl Albumin/Globulin Ratio 0.7 L (0.9-2) TSH 0.318 (0.300-4.500) uIu/ml Urine Color Urine Appearance (Clear) Urine pH (4.5-7.5) Ur Specific Verner (1.000-1.030) Urine Protein (Negative) Urine Glucose (UA) (Negative) Urine Ketones (Negative) Urine Blood (Negative) Urine Nitrite (Negative) Urine Bilirubin (Negative) Urine Urobilinogen (Negative) Ur Leukocyte Esterase (Negative) Urine Opiates Screen (Neg) Ur Methadone, Qual (Neg) Urine Barbiturates (Neg) Ur Phencyclidine (PCP) (Neg) U Amphetamin/Meth Scrn (Neg) MDMA (Ecstasy) Screen (Neg) U Benzodiazepines Scrn (Neg) Ur Cocaine Metabolite (Neg) U Marijuana (THC) Screen (Neg) Imaging Data Radiologist's Impression: Radiology results as stated below per my review and the radiologist's interpretation: CT head/brain wo con FINDINGS: Ash Conveyor Operator topogram: Unremarkable. Proportional ventricular and sulcal prominence, likely age-related parenchymal volume loss. No hemorrhage. Periventricular and subcortical white matter hypoattenuation, nonspecific but likely indicative of chronic small vessel ischemic change. Old lacunar infarct in the left basal ganglia/periventricular white matter. The recent acute lacunar infarcts in the bilateral thalami are not evident on this exam. Focus of calcification in the right frontal lobe unchanged. No acute territorial infarct. No mass effect or midline shift. No extra-axial fluid collection. Opacification of the left maxillary sinus. Calvarium intact. IMPRESSION: 1. Chronic small vessel ischemic change and old lacunar infarct in the left basal ganglia/periventricular white matter. The recent acute lacunar infarcts in the bilateral thalami are not evident on this exam. No acute intracranial abnormality. 2. Nonspecific opacification of the left maxillary sinus. Correlate clinically to exclude acute sinusitis. ACT 112: Negative or not required by law. Electronically signed by: Jony Chen M.D. 07/01/2019 2:20 PM ECG Data Attestation: I personally reviewed and interpreted this ECG as follows: Indication: + altered mental status Rate (beats per minute): 64 Rhythm: + normal sinus ECG [place]: + Left axis deviation ECG ST segments: + T-wave inversions (Lateral) ECG Findings: + LVH Comparison ECG Date: from (06/24/19) Change: no significant change Blood Pressure Blood Pressure Findings: Elevated blood pressure Blood Pressure Disposition: further management by hospitalist ALEX Hidalgo An order was placed for continuous cardiac monitoring. The monitor shows a rate of 63 with normal sinus rhythm. Patient is a 68-year-old gentleman presenting today from custodial with strokelike symptoms. Complains of some pins and needle generalized body count as well as intermittent slurred speech. Patient does have some mild slurred speech on exam now complains of diffuse pain and [id number]. Patient was admitted and evaluated here last week and at that time was found to have sustained multiple small CVAs and a right humeral fracture. Did have some hypokalemia at that time. Not a stroke alert candidate given timing. Basic labs, electrolytes, and a CT of the head were completed. EKG was completed. Complains of some diffuse paresthesias worse with movement. This is very nonspecific. Patient states these are but worse on the left side. Patient does have slurred speech on exam. Not significant aphasia. Per the neurology note had resolved deficits prior to discharge. Guards also states that he seems to be doing worse and his speech seems off now compared to when he was discharged. Has been on Plavix. CT the head was completed was basic laboratory studies. CT head without acute bleed. No significant electrolyte light abnormality. Could be nonspecific but given his recent strokes believe the patient requires further evaluation given his change in neurological status with slurred speech. Paraesthesia is non specific. Could have an occult recurrent stroke versus recrudescence. Impression & Plan Slurred speech, Paresthesias Discharge Plan Visit Data Chief Complaint: Neuro Symptoms/Deficit ED Provider: Eris Drake Discharge Problem: Slurred speech, Paresthesias Patient Disposition: Being Evaluated by Hospitalist The lee ann's documentation has been prepared under my direction and personally reviewed by me in its entirety. I confirm that the note above accurately reflects all work, treatment, procedures, and medical decision making performed by me.
[2019-07-01 19:10] LABS: Partial Thromboplastin Time 27.5 Seconds (21.0-31.0)
[2019-07-01] MEDS: hydroCHLOROthiazide 25 MG TAB PO SCH (19:36)
[2019-07-01] MEDS: lisinopriL 20 MG TAB PO SCH (19:36)
[2019-07-01] MEDS: HydrALAZINE 10 MG TAB PO SCH (20:32)
[2019-07-01] MEDS: ENOXAPARIN INJ 40 MG/0.4 ML SYR SQ SCH ×2 (20:33→20:36)
[2019-07-01] MEDS: carvediloL 12.5 MG TAB PO SCH (20:33)
[2019-07-01] MEDS ORDERED: AMLODIPINE BESYLATE 5 MG TAB PO SCH (21:00)
[2019-07-01] MEDS ORDERED: QUETIAPINE FUMARATE 200 MG TAB PO SCH (21:00)
--- NOTE | 2019-07-01 22:40 | Magnetic Resonance Report ---
MR brain wo con HISTORY: Mental status change TIA v stroke TECHNIQUE: Multiplanar multisequence MRI of the brain was performed without the use of contrast. COMPARISON STUDY: 06/24/2019 FINDINGS: Study is again somewhat compromised due to patient motion. The small microinfarcts describe d previously persist. They show normal decrease in signal on a normal evolutionary bases. A small superior parietal subcortical infarct is slightly increased in prominence. No new or additional findings are noted. Persistent is midline. The sella and parasellar regions are unremarkable. IMPRESSION: 1. Normal evolutionary change of microinfarcts of the periventricular region as previously described. 2. Slight increase in signal on diffusion of a subcortical infarct left superior parietal lobe. This appears to represent a slight increase in progression compared to the prior study. 3. All remaining components the study are unchanged. ACT 112: Negative or not required by law. The above report was generated using voice recognition software. It may contain grammatical, syntax or spelling errors. Electronically signed by: Parth Foy M.D. 07/01/2019 10:39 PM
[2019-07-01] MEDS ORDERED: DEXTROSE 50% 50 ML SYRINGE IV PRN (23:17)
[2019-07-01] MEDS ORDERED: CARBOHYDRATES FOR HYPOGLYCEMIA PO PRN (23:17)
[2019-07-01] MEDS ORDERED: GLUCOSE 10 TABS/TUBE PO PRN (23:17)
[2019-07-01] MEDS ORDERED: GLUCOSE 40% GEL 15 GM TUBE PO PRN (23:17)
[2019-07-01] MEDS ORDERED: GLUCAGON FOR INJ 1 MG VIAL SQ PRN (23:17)
[2019-07-02] MEDS ORDERED: PHARMACY GLYCEMIC MGMT CONSULT PRN (00:16)
[2019-07-02] MEDS ORDERED: INSULIN ASPART 100 UNITS/ML 3 ML PEN SC SCH (04:00)
[2019-07-02] MEDS: INSULIN ASPART 100 UNITS/ML 3 ML PEN SC SCH ×3 (04:36→13:21)
[2019-07-02 04:49] LABS: Basophils # (auto) 0.02 K/uL (0-0.2); Basophils % (auto) 0.2 %; Eosinophils # (auto) 0.15 K/uL (0-0.5); Eosinophils % (auto) 1.4 %; Hematocrit (blood only) 42.9 % (42-52); Hemoglobin 14.8 g/dL (14.0-18.0); Immature Granulocytes # (auto) 0.04 K/uL (0.00-0.02); Immature Granulocytes % (auto) 0.4 %; Lymphocytes # (auto) 2.87 K/uL (1.2-3.4); Lymphocytes % (auto) 25.9 %; Mean Corpuscular Hemoglobin 31.5 pg (25-34); Mean Corpuscular Hgb Conc 34.5 g/dL (32-36); Mean Corpuscular Volume 91.3 fL (80-100); Mean Platelet Volume 10.6 fL (7.4-10.4); Monocytes # (auto) 1.02 K/uL (0.11-0.59); Monocytes % (auto) 9.2 %; Neutrophils # (auto) 6.98 K/uL (1.4-6.5); Neutrophils % (auto) 62.9 %; Platelet Count 323 K/uL (130-400); RDW Coefficient of Variation 13.6 % (11.5-14.5); RDW Standard Deviation 45.2 fL (36.4-46.3); White Blood Count 11.08 K/uL (4.8-10.8)
[2019-07-02 05:07] LABS: BUN Creatinine Ratio 26.2 (10-20); Calcium 8.6 mg/dl (8.5-10.1); Creatinine Clr Calc Pharmacy 76.8 ml/min; Est GFR (African American) 104.3; Potassium 3.1 mmol/L (3.5-5.1)
[2019-07-02 06:31] LABS: Estimated Average Glucose 143 mg/dl; Hemoglobin A1C 6.6 % (4.5-5.6)
--- NOTE | 2019-07-02 07:01 | Ultrasound Report ---
ULTRASOUND RIGHT UPPER EXTREMITY VENOUS CLINICAL HISTORY: Right arm pain. COMPARISON STUDY: No priors. TECHNIQUE: Real-time, grayscale, and color Doppler sonography of the deep veins of the right upper ex tremity is performed. Compression and augmentation were utilized. FINDINGS: There is no sonographic evidence of deep venous thrombosis identified in the right upper ex tremity. The right internal jugular, axillary, and brachial veins are patent and normally compressibl e. Normal venous waveforms and augmentation are seen within the right subclavian vein. The cephalic a nd basilic veins are clear. The visualized radial and ulnar veins are patent. IMPRESSION: There is no sonographic evidence of deep venous thrombosis identified in the right upper extremity. ACT 112: Negative or not required by law. Electronically signed by: Michoacano Gaines M.D. 07/02/2019 7:00 AM
[2019-07-02] MEDS ORDERED: QUETIAPINE FUMARATE 100 MG TABLET PO SCH (08:00)
[2019-07-02] MEDS: BACLOFEN 10 MG TAB PO SCH ×2 (08:44→13:20)
[2019-07-02] MEDS: lisinopriL 20 MG TAB PO SCH (08:44)
[2019-07-02] MEDS: carvediloL 12.5 MG TAB PO SCH (08:46)
[2019-07-02] MEDS: hydroCHLOROthiazide 25 MG TAB PO SCH (08:46)
[2019-07-02] MEDS: HydrALAZINE 10 MG TAB PO SCH ×2 (08:46→13:20)
[2019-07-02] MEDS ORDERED: predniSONE 10 MG TABLET PO SCH (09:00)
[2019-07-02] MEDS ORDERED: ATORVASTATIN 40 MG TAB PO SCH (09:00)
[2019-07-02] MEDS ORDERED: CLOPIDOGREL BISULFATE 75 MG TAB PO SCH (09:00)
[2019-07-02] MEDS ORDERED: POTASSIUM CHLORIDE 10 MEQ TABCR PO SCH (09:00)
--- NOTE | 2019-07-02 14:55 | Pharmacy Report ---
Pharmacy Glycemic Short Note 2 - Date of Service July 02, 2019 - Glycemic Short BSG Results (Last 24 hours): 07/01/19 07/02/19 07/02/19 23:20 04:16 04:34 Glucose 115 H POC Glucose 176 H 106 H 07/02/19 07/02/19 07:23 10:58 Glucose POC Glucose 129 H 109 H OUTPATIENT ANTIDIABETIC REGIMEN: * no medications for DM * A1c = 6.6% 07/01/19 ASSESSMENT: * Type 2 diabetic, well controlled per recent A1c, admitted to [facility] for TIA * Pt was initiated on Novolog correctional and prandial insulin based upon weight and "moderate" stress level * Pt is tolerating a diet and BSGs well controlled with current Novolog orders * Doubt basal insulin needed given A1c results and current BSG trend PLAN FOR INPATIENT GLYCEMIC CONTROL: * Basal insulin * None at this time * Bolus insulin * NovoLog per scale ACHS or Q6hrs while NPO * Goal Range: Low 110 mg/dL - High 180 mg/dL * Correction Factor: 35 mg/dL/unit * Nutritional / Prandial insulin per carb ratio of 1 unit per 12 grams CHO consumed PLAN FOR DISCHARGE: * given A1c results, continued dietary / lifestyle measures encouraged however no medications indicated at this time
--- NOTE | 2019-07-02 15:28 | Discharge Summary ---
Date of Service July 02, 2019 Admission HPI Per Admitting Provider The patient is a 68 years old male with past medical history of recent CVA, proximal humerus fracture, paresthesias, former smoker, hypertension, diabetes mellitus type 2, who presents to the emergency room with a complaint of slurred speech that comes and goes. Patient reports [id number] throughout his body including his left leg back and chest. Patient reports that his right leg feels fine. Patient complains of blurry vision and slurred speech. Patient noted having slurred speech few days ago. 1 week ago patient had CVA. Patient denies fever, chills, chest pain, shortness of breath, abdominal pain, frequency, urgency. June 25 patient had echocardiogram done that shows severe concentric left ventricular hypertrophy. Left ventricular systolic function is normal. Aortic valve sclerosis moderate, without significant aortic valvular stenosis. Right ventricular systolic pressure is elevated at 30 to 40 mmHg. Injection of contrast documented no intra-arterial shunt. Labs are reviewed which shows WBCs of 14.15, hemoglobin 14.5, hematocrit 42.4, platelets 352, PT 10.2, INR 1, APTT 27.5, sodium 133, potassium 3.6, chloride 97, carbon dioxide 29, anion gap 6, BUN 18, creatinine 0.72, GFR 95.9, troponin initial 0.0 26, repeated 0.015, TSH 0.318. Urine shows trace glucose otherwise negative. MRSA smear negative. Negative drug screen. MRI of the brain done and shows slight increase in signal on diffusion of a subcortical infarct left superior parietal lobe this appears to represent a slight increase in progression compared to the prior study. All remaining components of the study are unchanged. Normal evolutionary changes and microinfarcts of the periventricular region as previously described. Right shoulder CT shows displaced Hill-Sachs fracture with a corresponding nondisplaced bony Bankart lesion/fracture consistent with a prior right shoulder dislocation. Small to moderate joint effusion. Decision was made to admit patient to rule out possible transient ischemic attack versus a new stroke. Principal Diagnosis Dysarthria, prior stroke Discharge Exam Constitutional WD/WN, vitals as above Eyes PERRL, conjunctivae normal, anicteric sclerae ENMT external ear and nose normal, oropharynx normal Neck trachea midline, no thyromegaly Respiratory normal respiratory effort, lungs clear to auscultation Cardiovascular RRR, no murmur, no edema Gastrointestinal (Abdomen) normal bowel sounds, soft, nontender, no hepatosplenomegaly Musculoskeletal no cyanosis or clubbing, extremities motor strength 5/5 Extremities: + extremities abnormal to inspection (right arm in sling due to humerus fracture) Skin no rashes, warm and dry Neurologic patellar DTR's 2+ bilat, sensation intact and PERRL, EOMI, accommodation nl, no face palsy, no dysarthria no focal motor deficits Speech / Cognition: normal speech Psychiatric A+Ox3, euthymic affect Lymphatic no cervical or axillary lymphadenopathy Discharge Data Allergies Allergy/AdvReac Type Severity Reaction Status Date / Time Sulfa (Sulfonamide Allergy Intermediate SWELLING, Verified 07/01/19 12:41 Antibiotics) REDNESS Consultations 07/01/19 15:11 ED Decision to Admit Stat 07/01/19 18:22 Consult Case Management - Discharge Planning Routine Ordered Studies 07/01/19 12:59 CT head/brain wo con Stat 07/01/19 18:22 MR brain wo con Routine 07/02/19 23:09 US venous doppler UE RT Routine Hospital Course (1) Transient ischemic attack: patients symptoms of dysarthria and bilateral leg weakness/numbness quickly resolved discussed with Dr. Morales, his neurological symptoms are due to recent stroke MRI brain showed evidence of the prior stroke that was slightly larger d/w Dr. Morales, this was just progression (expected) of the prior stroke, evidence of stroke will be present on MRI for about 4 weeks patient will be very sensitive to changes in blood pressure, activity level very possible that he will have dysarthria periodically the bilateral leg weakness and numbness would not be due to stroke, but it quickly resolved discharge on Lipitor, Plavix continue blood pressure control with Lisinopril, Coreg, Norvasc, HCTZ, Hydralazine (2) Hypokalemia: repleted in the ED, now normal (3) Closed right humeral fracture: Started baclofen 5 mg 3 times daily for muscle spasm. Ultrasound of the right upper extremity shows no DVT plan to follow up with orthopedic surgery as originally planned (4) CVA (cerebrovascular accident): As discussed above (5) Hypertension: Continue monitoring, and continue medication as discussed above (6) DMII (diabetes mellitus, type 2): Glycemic control per pharmacy, Accu-Cheks before meals and at bedtime, sliding scale insulin if needed (7) Paranoid schizophrenia: Stable, continue Seroquel 100 mg p.o. twice daily and 200 mg p.o. nightly. Total Time Total Time Spent Total Time Spent (In Minutes): 31 minutes Total Time Includes: Examination of the Patient, Discharge Planning, Medication Reconciliation and Communication With Other Providers Discharge Plan Discharge Items [facility] Disposition: [facility] Reason For Visit: SLURRED SPEECH Discharge Diagnosis: Slurred speech Recent left parietal stroke Waxing and waning symptoms, no new stroke Condition on Discharge: Good Goals: continue medical management follow up with orthopedic surgery in 2 weeks, repeat x-rays right shoulder Activity: Resume your previous activity Weightbearing: Full weightbearing Non-emergency contact: Primary Care Provider Call non-emergency contact if: you have any medication questions and your sym ptoms worsen Follow-up/Referrals: [facility] [Primary Care Provider] - Diet: Carb Consistent or DM2 and Heart Healthy Addtl Attending Provider Instructions: Medications: one change noted below - HYDRALAZINE: changed to 25mg twice a day for compliance, can continue 10mg four times a day until nursing home can get 25mg tablets Slurred speech discussed with neurology, reviewed MRI brain the MRI showed expected diffusion changes of the prior stroke these changes can be seen for several weeks after a stroke blood pressure was elevated on admission but well controlled today make sure patient is compliant with medications for blood pressure continue Lipitor and Plavix can follow up with [facility] in one month in the clinic symptoms of slurred speech and mild neurological deficits can be expected, will wax and wane slight changes in blood pressure or increased activity could trigger these symptoms should monitor patient but they should resolved within 24 hours Right humerus fracture venous doppler of the right arm showed no evidence of DVT plan to follow up with orthopedic surgery as planned on last discharge Pending Studies at Discharge: No Stand-Alone Forms: My [facility] Skilled Items Patient informed of condition?: Yes Discharge Level of Care: Other Communicable Disease: No Discharge Prognosis: Stable Lines: None Urinary Catheter: No Medications and DC Order Prescriptions: New hydralazine 25 mg tablet 25 mg PO BID Qty: 60 RF: 0 Continued prednisone 10 mg tablet 10 mg PO DAILY RF: 0 amlodipine 5 mg tablet 5 mg PO HS RF: 0 carvedilol 25 mg tablet 12.5 mg PO BID RF: 0 quetiapine [Seroquel] 200 mg Tablet 200 mg PO HS Qty: 30 RF: 0 quetiapine 100 mg tablet 100 mg PO BIDM RF: 0 atorvastatin 40 mg Tablet 40 mg PO QAM Qty: 30 RF: 0 lisinopril 20 mg Tablet 20 mg PO QAM 30 Days Qty: 30 RF: 0 clopidogrel 75 mg Tablet 75 mg PO QAM Qty: 30 RF: 0 hydrochlorothiazide 25 mg Tablet 25 mg PO QAM Qty: 30 RF: 0 potassium chloride 10 mEq tablet extended release 10 meq PO DAILY Qty: 14 RF: 0 Discontinued hydralazine 10 mg Tablet 10 mg PO QID Qty: 30 RF: 0 Discharge Orders: Discharge Order (Routine); Ordered 07/02/19 Ordered By: Ramakrishna Rosa/Other Patient Handouts: Dysarthria Tx, Stroke Prevent Healthy Lifestyle Admission Data Admit Date/Time: 07/01/19 17:30 Attending Provider: Ramakrishna Iniguez Admit Provider: Wai Manzano Primary Care Provider: [facility] Other Interventions: Discharge Summary Assessment (RN) Last Done: 07/02/19 15:36 DC Date/Time DO NOT enter until pt leaves facility: 07/02/19 16:45 Coding Level of Care Code D/C Day Management >30 mins Diagnoses Transient ischemic attack G45.9 Hypokalemia E87.6 Closed right humeral fracture S42.301A CVA (cerebrovascular accident) I63.9 CVA mechanism: unspecified Hypertension I10 DMII (diabetes mellitus, type 2) E11.9 Paranoid schizophrenia F20.0
== END 2019-07-02 16:45 | DRG 57 ==
LOC: ED 11:19 → 1E 17:30 → SUATTDRO 17:30 → 1E 18:23 → 2E 07-02 10:11